=== PATIENT | female | born 1985 | race Two or more races ===

== ENCOUNTER 2017-03-28 13:20 | Emergency (ER) | payer OTHER, MEDICAID ==
[~2017-03-28] VITALS: Ht 160 cm; Wt 99.8 kg
[~2017-03-28 13:20] MED LIST: PANT40TA2 PO
[2017-03-28 13:35] VITALS: BP 148/101
== END 2017-03-28 14:28 | disposition home or self-care (01) ==
LOC: ER 13:20
DX: S39.012A Strain of muscle, fascia and tendon of lower back, initial encounter (principal); F17.210 Nicotine dependence, cigarettes, uncomplicated; E07.9 Disorder of thyroid, unspecified; V49.49XA Driver injured in collision with other motor vehicles in traffic accident, initial encounter; Y93.89 Activity, other specified; Y99.8 Other external cause status; Y92.481 Parking lot as the place of occurrence of the external cause

== ENCOUNTER 2018-05-11 03:24 | Emergency (ER) | payer MEDICAID, OTHER ==
[~2018-05-11] VITALS: Ht 160 cm; Wt 108.9 kg
[2018-05-11 03:57] VITALS: BP 146/105
[2018-05-11 04:30] LABS: Basophils # (auto) 0.1 uL; Basophils % (auto) 0.6 % (0.0-2.0); Eosinophils # (auto) 0.1 uL; Eosinophils % (auto) 0.9 % (0.0-7.0); Hematocrit 45.9 % (36.0-46.0); Hemoglobin 15.4 g/dL (12.2-16.2); Lymphocytes # (auto) 3.1 uL; Lymphocytes % (auto) 27.4 % (10.0-50.0); Mean Corpuscular Hemoglobin 29.6 pg (28.0-32.0); Mean Corpuscular Hgb Conc. 33.6 g/dL (32.0-36.0); Monocytes # (auto) 0.9 uL; Monocytes % (auto) 7.9 % (0.0-12.0); Neutrophils # (auto) 7.2 uL; Neutrophils % (auto) 63.2 % (37.0-80.0); Platelet Count (auto) 325 10^3/uL (140-450); Red Blood Cells 5.21 10^6/uL (4.0-5.20); Red Cell Distribution Width 14.4 % (11.8-14.3); White Blood Cell 11.4 10^3/uL (4.4-10.8)
[2018-05-11 05:03] LABS: Albumin 3.9 g/dL (3.4-5.0); BUN/Creatinine Ratio 13.2; Calcium 8.6 mg/dL (8.5-10.1); Potassium 3.6 mmol/L (3.5-5.1)
[2018-05-11 05:06] LABS: Bilirubin, Total 0.3 mg/dL (0.2-1.0); Total Protein 8.8 g/dL (6.4-8.2)
[2018-05-11 05:07] LABS: Urine Bacteria NONE SEEN /hpf (None Seen); Urine Blood Negative /uL (Negative); Urine Mucus FEW (None Seen); Urine Specific Gravity 1.036 (1.001-1.035); Urine WBC 2 /hpf (0 - 5)
== END 2018-05-11 06:54 | disposition left against medical advice (07) ==
LOC: ER 03:25
DX: N93.9 Abnormal uterine and vaginal bleeding, unspecified (principal); Z53.21 Procedure and treatment not carried out due to patient leaving prior to being seen by health care provider
CPT/HCPCS: 36415; 80053; 81001; 84702; 85025

== ENCOUNTER 2018-05-14 18:25 | Emergency (ER) | payer OTHER, MEDICAID ==
[~2018-05-14] VITALS: Ht 160 cm; Wt 108.9 kg
[2018-05-14 18:36] VITALS: BP 152/99
[2018-05-14] MEDS ORDERED: methylPREDNISolone SOD SUCC 125 MG/2 ML VL IM ONE (19:45)
== END 2018-05-14 20:03 | disposition home or self-care (01) ==
LOC: ER 18:25
DX: S80.862A Insect bite (nonvenomous), left lower leg, initial encounter (principal); S80.861A Insect bite (nonvenomous), right lower leg, initial encounter; E07.9 Disorder of thyroid, unspecified; F17.210 Nicotine dependence, cigarettes, uncomplicated; Z90.49 Acquired absence of other specified parts of digestive tract; W57.XXXA Bitten or stung by nonvenomous insect and other nonvenomous arthropods, initial encounter; Y93.89 Activity, other specified; Y99.8 Other external cause status; Y92.830 Public park as the place of occurrence of the external cause
CPT/HCPCS: 96372; 99283; J2930

== ENCOUNTER 2019-11-25 00:19 | Emergency (ER) | payer OTHER, MEDICAID ==
[~2019-11-25] VITALS: Ht 157.5 cm; Wt 108.9 kg
[2019-11-25 00:24] VITALS: BP 113/73
[2019-11-25] MEDS ORDERED: IBUPROFEN 600 MG TAB PO ONE (07:00)
[2019-11-25] MEDS ORDERED: METHOCARBAMOL 500 MG TAB PO ONE (07:00)
== END 2019-11-25 08:00 | disposition home or self-care (01) ==
LOC: EDBD 00:19 → ER 00:21
DX: M54.2 Cervicalgia (principal); R42 Dizziness and giddiness; M62.838 Other muscle spasm
CPT/HCPCS: 70450

== ENCOUNTER 2019-12-10 22:55 | Emergency (ER) | payer OTHER, MEDICAID ==
[~2019-12-10] VITALS: Ht 160 cm; Wt 102.5 kg
[2019-12-11] MEDS ORDERED: ACETAMINOPHEN 500 MG TAB PO ONE (00:30)
[2019-12-11 01:00] VITALS: BP 142/93
== END 2019-12-11 00:35 | disposition home or self-care (01) ==
LOC: ER 22:55
DX: S60.441A External constriction of left index finger, initial encounter (principal); G43.909 Migraine, unspecified, not intractable, without status migrainosus; J06.9 Acute upper respiratory infection, unspecified; W49.04XA Ring or other jewelry causing external constriction, initial encounter; Y93.89 Activity, other specified; Y92.89 Other specified places as the place of occurrence of the external cause; Y99.8 Other external cause status

== ENCOUNTER → 2020-01-02 | Emergency (ER) | payer OTHER, MEDICAID ==
[~2020-01-02] VITALS: Ht 160 cm; Wt 111.1 kg
[~2020-01-02] MED LIST changes: +IBUPROFEN 800 MG TAB PO ONE; +SODIUM CHLORIDE 0.9% 1,000 ML IV ONE
[2020-01-02 22:55] LABS: Basophils # (auto) 0 10 ^3/uL (0-0.2); Basophils % (auto) 0.3 % (0.0-2.0); Eosinophils # (auto) 0.1 10 ^3/uL (0-0.8); Eosinophils % (auto) 0.8 % (0.0-7.0); Hematocrit 40.9 % (36.0-46.0); Lymphocytes # (auto) 3.1 10 ^3/uL (0.4-5.4); Lymphocytes % (auto) 33.3 % (10.0-50.0); Mean Corpuscular Hemoglobin 30.6 pg (28.0-32.0); Mean Corpuscular Hgb Conc. 34.2 g/dL (32.0-36.0); Mean Corpuscular Volume 89.2 fL (80.0-100.0); Monocytes # (auto) 0.7 10 ^3/uL (0-1.3); Monocytes % (auto) 7.3 % (0.0-12.0); Neutrophils # (auto) 5.4 10 ^3/uL (1.6-8.6); Neutrophils % (auto) 58.3 % (37.0-80.0); Nucleated Red Blood Cells % 0.1 %; Platelet Count (auto) 276 10^3/uL (140-450); Red Blood Cells 4.59 10^6/uL (4.0-5.20); Red Cell Distribution Width 14.8 % (11.8-14.3); White Blood Cell 9.3 10^3/uL (4.4-10.8)
[2020-01-02 23:10] LABS: Urine Bacteria FEW /hpf (None Seen); Urine Blood Negative /uL (Negative); Urine Hyaline Cast FEW /lpf (0 - 2); Urine Mucus MANY (None Seen); Urine Specific Gravity 1.023 (1.001-1.035); Urine WBC 6 /hpf (0 - 5)
[2020-01-02 23:14] LABS: Albumin 3.8 g/dL (3.4-5.0); BUN/Creatinine Ratio 12.3; Magnesium 2.1 mg/dL (1.6-2.6); Potassium 3.5 mmol/L (3.5-5.1)
[2020-01-02 23:16] LABS: Bilirubin, Total 0.9 mg/dL (0.2-1.0); Salicylate < 1.7 mg/dL (2.8-20.0); Total Protein 7.9 g/dL (6.4-8.2)
[2020-01-02 23:17] LABS: Amphetamine Screen, Urine POSITIVE (NEGATIVE); Barbiturate Scree,Urine NEGATIVE (NEGATIVE); Benzodiazephine Screen, Urine POSITIVE (NEGATIVE); Cannabinoid Screen, Urine POSITIVE (NEGATIVE); Cocaine Screen, Urine POSITIVE (NEGATIVE); Opiate Scree,Urine NEGATIVE (NEGATIVE); Phencyclidine Screen, Urine NEGATIVE (NEGATIVE)
[2020-01-02 23:18] LABS: Acetaminophen < 2.0 ug/mL (10-30)
[2020-01-03 09:56] VITALS: BP 104/62
== END | disposition short-term general hospital (02) ==
LOC: ER 21:59
DX: T50.902A Poisoning by unspecified drugs, medicaments and biological substances, intentional self-harm, initial encounter (principal); F17.210 Nicotine dependence, cigarettes, uncomplicated; Y92.89 Other specified places as the place of occurrence of the external cause
CPT/HCPCS: 36415; 80053; 80307; 80320; 80329; 81001; 81025; 83735; 85025; 93005

== ENCOUNTER 2020-01-22 18:28 | Emergency (ER) | payer OTHER, MEDICAID ==
[~2020-01-22] VITALS: Ht 160 cm; Wt 91.6 kg
[~2020-01-22 18:28] MED LIST changes: -IBUPROFEN 800 MG TAB PO ONE; -SODIUM CHLORIDE 0.9% 1,000 ML IV ONE
[2020-01-22 19:36] VITALS: BP 136/98
[2020-01-22] MEDS ORDERED: TETANUS-DIPTH-ACEL PERTUSSIS 0.5ML SYR Tdap IM ONE (20:00)
[2020-01-22] MEDS ORDERED: cefTRIAXone SOD 1,000 MG VL IM ONE (20:00)
[2020-01-22] MEDS ORDERED: AZITHROMYCIN 250 MG TAB PO ONE (20:00)
[2020-01-22] MEDS ORDERED: KETOROLAC TROMETH 60MG/2ML VIAL IM ONE (20:00)
[2020-01-22] MEDS ORDERED: NEOMYCIN-BACITRACIN-POLYM 15GM TOP OINT TOP ONE (20:00)
== END 2020-01-22 21:53 | disposition home or self-care (01) ==
LOC: ER 18:28
DX: S90.822A Blister (nonthermal), left foot, initial encounter (principal); S40.812A Abrasion of left upper arm, initial encounter; S40.811A Abrasion of right upper arm, initial encounter; G43.909 Migraine, unspecified, not intractable, without status migrainosus; N39.0 Urinary tract infection, site not specified; L03.012 Cellulitis of left finger; F15.10 Other stimulant abuse, uncomplicated; F12.10 Cannabis abuse, uncomplicated; E03.9 Hypothyroidism, unspecified; F17.210 Nicotine dependence, cigarettes, uncomplicated; Z76.0 Encounter for issue of repeat prescription; Z79.899 Other long term (current) drug therapy; X58.XXXA Exposure to other specified factors, initial encounter; Y93.89 Activity, other specified; Y92.89 Other specified places as the place of occurrence of the external cause; Y99.8 Other external cause status
CPT/HCPCS: 82962; 90471; 90715; 96372; 99284; J0696; J1885

== ENCOUNTER 2020-02-08 00:37 | Emergency (ER) | payer OTHER, MEDICAID ==
[~2020-02-08] VITALS: Ht 160 cm; Wt 99.8 kg
[2020-02-08 01:45] LABS: Basophils # (auto) 0 10 ^3/uL (0-0.2); Basophils % (auto) 0.1 % (0.0-2.0); Eosinophils # (auto) 0.4 10 ^3/uL (0-0.8); Eosinophils % (auto) 4.9 % (0.0-7.0); Hematocrit 37.7 % (36.0-46.0); Hemoglobin 12.6 g/dL (12.2-16.2); Lymphocytes # (auto) 2.8 10 ^3/uL (0.4-5.4); Lymphocytes % (auto) 31.1 % (10.0-50.0); Mean Corpuscular Hemoglobin 29.7 pg (28.0-32.0); Mean Corpuscular Hgb Conc. 33.4 g/dL (32.0-36.0); Mean Corpuscular Volume 88.8 fL (80.0-100.0); Monocytes # (auto) 0.8 10 ^3/uL (0-1.3); Monocytes % (auto) 8.3 % (0.0-12.0); Neutrophils % (auto) 55.6 % (37.0-80.0); Nucleated Red Blood Cells % 0.1 %; Platelet Count (auto) 267 10^3/uL (140-450); Red Blood Cells 4.25 10^6/uL (4.0-5.20); Red Cell Distribution Width 14.4 % (11.8-14.3); White Blood Cell 9.1 10^3/uL (4.4-10.8)
[2020-02-08 02:03] LABS: Alanine Aminotransferase 38 U/L (13-56); Albumin 3.4 g/dL (3.4-5.0); Anion Gap 6 (5-15); Aspartate Aminotransferase 35 U/L (15-37); BUN/Creatinine Ratio 8.8; Blood Alcohol < 3.0 mg/dL (0-5); Blood Urea Nitrogen 6 mg/dL (7-18); Calcium 8.2 mg/dL (8.5-10.1); Carbon Dioxide 26 mmol/L (21-32); Chloride 107 mmol/L (98-107); GFR African American 126 mL/min; GFR Non-African American 104 mL/min; Glucose 104 mg/dL (74-106); Potassium 3.3 mmol/L (3.5-5.1); Salicylate < 1.7 mg/dL (2.8-20.0); Sodium 139 mmol/L (136-145)
[2020-02-08 02:07] LABS: Alkaline Phosphatase 84 U/L (45-117); Bilirubin, Total 0.4 mg/dL (0.2-1.0); Total Protein 7.4 g/dL (6.4-8.2)
[2020-02-08 02:11] LABS: Acetaminophen < 2.0 ug/mL (10-30)
[2020-02-08 04:12] LABS: Urine Bacteria NONE SEEN /hpf (None Seen); Urine Blood Negative /uL (Negative); Urine Hyaline Cast FEW /lpf (0 - 2); Urine Mucus FEW (None Seen); Urine WBC 3 /hpf (0 - 5)
[2020-02-08] MEDS ORDERED: SODIUM CHLORIDE 0.9% 2,000 ML IV ONE (04:15)
[2020-02-08 04:27] LABS: Alcohol, Urine < 3.0 mg/dL (0-5); Amphetamine Screen, Urine POSITIVE (NEGATIVE); Barbiturate Scree,Urine NEGATIVE (NEGATIVE); Benzodiazephine Screen, Urine NEGATIVE (NEGATIVE); Cannabinoid Screen, Urine NEGATIVE (NEGATIVE); Cocaine Screen, Urine POSITIVE (NEGATIVE); Opiate Scree,Urine NEGATIVE (NEGATIVE); Phencyclidine Screen, Urine NEGATIVE (NEGATIVE)
[2020-02-08] MEDS ORDERED: SODIUM CHLORIDE 0.9% 1,000 ML IV ONE (04:45)
[2020-02-08 10:09] LABS: Basophils # (auto) 0 10 ^3/uL (0-0.2); Basophils % (auto) 0.2 % (0.0-2.0); Eosinophils # (auto) 0.3 10 ^3/uL (0-0.8); Eosinophils % (auto) 4.5 % (0.0-7.0); Hematocrit 37.6 % (36.0-46.0); Hemoglobin 12.4 g/dL (12.2-16.2); Lymphocytes # (auto) 1.3 10 ^3/uL (0.4-5.4); Lymphocytes % (auto) 22.7 % (10.0-50.0); Mean Corpuscular Hemoglobin 29.5 pg (28.0-32.0); Mean Corpuscular Volume 89.4 fL (80.0-100.0); Monocytes # (auto) 0.5 10 ^3/uL (0-1.3); Monocytes % (auto) 8.1 % (0.0-12.0); Neutrophils # (auto) 3.8 10 ^3/uL (1.6-8.6); Neutrophils % (auto) 64.5 % (37.0-80.0); Platelet Count (auto) 241 10^3/uL (140-450); Red Blood Cells 4.21 10^6/uL (4.0-5.20); Red Cell Distribution Width 14.2 % (11.8-14.3); White Blood Cell 5.9 10^3/uL (4.4-10.8)
[2020-02-09] MEDS ORDERED: POTASSIUM EFFERVESENT TAB 25 MEQ PO ONE (11:00)
[2020-02-10 14:51] VITALS: BP 120/83
== END 2020-02-10 14:21 | disposition short-term general hospital (02) ==
LOC: ER 00:37
DX: T42.4X1A Poisoning by benzodiazepines, accidental (unintentional), initial encounter (principal); F12.10 Cannabis abuse, uncomplicated; F15.10 Other stimulant abuse, uncomplicated; F17.210 Nicotine dependence, cigarettes, uncomplicated; Z90.49 Acquired absence of other specified parts of digestive tract; Y92.89 Other specified places as the place of occurrence of the external cause
CPT/HCPCS: 36415; 70450; 80053; 80307; 80320; 80329; 81001; 83735; 84702; 85025; 93005; 99285; J7030

== ENCOUNTER 2020-10-31 17:32 | Emergency (ER) | payer OTHER, MEDICAID ==
[~2020-10-31] VITALS: Ht 160 cm; Wt 81.6 kg
[2020-10-31 19:28] LABS: Urine Bacteria NONE SEEN /hpf (None Seen); Urine Blood 2+ /uL (Negative); Urine Mucus MODERATE (None Seen); Urine Specific Gravity 1.044 (1.001-1.035); Urine WBC 6 /hpf (0 - 5)
[2020-10-31] MEDS ORDERED: ROCURONIUM 10MG/ML 10ML VIAL IV ONE (19:44)
[2020-10-31 19:53] LABS: Amphetamine Screen, Urine POSITIVE (NEGATIVE); Barbiturate Scree,Urine NEGATIVE (NEGATIVE); Benzodiazephine Screen, Urine NEGATIVE (NEGATIVE); Cannabinoid Screen, Urine NEGATIVE (NEGATIVE); Cocaine Screen, Urine NEGATIVE (NEGATIVE); Opiate Scree,Urine NEGATIVE (NEGATIVE); Phencyclidine Screen, Urine NEGATIVE (NEGATIVE)
[2020-11-01] MEDS ORDERED: HALOPERIDOL LACTATE 5 MG/ML INJ VIAL IM ONE (04:15)
[2020-11-01] MEDS ORDERED: LORazepam 2MG/ML-1ML VIAL IM ONE (04:15)
[2020-11-01 15:12] VITALS: BP 114/89
== END 2020-11-01 15:18 ==
LOC: ER 17:32 → EDBD 17:32 → ER 11-01 15:18
DX: F23 Brief psychotic disorder (principal); F17.210 Nicotine dependence, cigarettes, uncomplicated; Z90.49 Acquired absence of other specified parts of digestive tract; Z20.822 Contact with and (suspected) exposure to COVID-19
CPT/HCPCS: 36415; 80307; 81001; 81025; 87426; 96372; 99285; C9803; J1630; J2060; U0003

== ENCOUNTER 2021-01-25 17:42 | Emergency (ER) | payer OTHER, MEDICAID ==
[~2021-01-25] VITALS: Ht 167.6 cm; Wt 117.9 kg
[2021-01-25] MEDS ORDERED: diphenhdrAMINE HCL 50 MG/1 ML VL IM ONE (18:30)
[2021-01-25] MEDS ORDERED: HALOPERIDOL LACTATE 5 MG/ML INJ VIAL IM ONE (18:30)
[2021-01-25] MEDS ORDERED: LORazepam 2MG/ML-1ML VIAL IM ONE (18:30)
[2021-01-25] MEDS ORDERED: SODIUM CHLORIDE 0.9% 1,000 ML IV ONE ×2 (18:45→20:15)
[2021-01-25] MEDS ORDERED: THIAMINE INJ 100 MG in SODIUM CHLORIDE 0.9% 1,000 ML IV ONE (18:45)
[2021-01-25 19:26] LABS: Basophils # (auto) 0 10 ^3/uL (0-0.2); Basophils % (auto) 0.2 % (0.0-2.0); Eosinophils # (auto) 0 10 ^3/uL (0-0.8); Hematocrit 45.2 % (36.0-46.0); Hemoglobin 14.9 g/dL (12.2-16.2); Lymphocytes # (auto) 1.7 10 ^3/uL (0.4-5.4); Mean Corpuscular Hemoglobin 27.2 pg (28.0-32.0); Mean Corpuscular Hgb Conc. 32.9 g/dL (32.0-36.0); Mean Corpuscular Volume 82.8 fL (80.0-100.0); Monocytes # (auto) 1.6 10 ^3/uL (0-1.3); Monocytes % (auto) 9.7 % (0.0-12.0); Neutrophils # (auto) 13.6 10 ^3/uL (1.6-8.6); Neutrophils % (auto) 80.1 % (37.0-80.0); Nucleated Red Blood Cells % 0.3 %; Red Blood Cells 5.46 10^6/uL (4.0-5.20); Red Cell Distribution Width 15.9 % (11.8-14.3)
[2021-01-25 19:39] LABS: Albumin 4.9 g/dL (3.4-5.0); BUN/Creatinine Ratio 9.5; Potassium 3.8 mmol/L (3.5-5.1)
[2021-01-25 19:40] LABS: Blood Alcohol < 3.0 mg/dL (0-5); Magnesium 2.3 mg/dL (1.6-2.6)
[2021-01-25 19:42] LABS: Bilirubin, Total 0.7 mg/dL (0.2-1.0); Total Protein 10.3 g/dL (6.4-8.2)
[2021-01-25] MEDS ORDERED: ALBUTEROL SULF 2.5 MG/0.5ML(0.5%) NEB SOLN ONE (19:42)
[2021-01-25 19:50] LABS: Salicylate < 1.7 mg/dL (2.8-20.0)
[2021-01-25 19:52] LABS: Acetaminophen < 2.0 ug/mL (10-30)
[2021-01-25] MEDS ORDERED: ACETAMINOPHEN 325 MG TAB PO ONE (20:00)
[2021-01-25] MEDS ORDERED: THIAMINE 100mg/ml INJ (200mg/2ml VIAL) IV ONE (20:15)
[2021-01-25 23:34] LABS: Urine Bacteria MANY /hpf (None Seen); Urine Blood 2+ /uL (Negative); Urine Hyaline Cast MANY /lpf (0 - 2); Urine Mucus FEW (None Seen); Urine Specific Gravity 1.026 (1.001-1.035); Urine WBC 114 /hpf (0 - 5)
[2021-01-25 23:40] LABS: Amphetamine Screen, Urine POSITIVE (NEGATIVE); Barbiturate Scree,Urine NEGATIVE (NEGATIVE); Benzodiazephine Screen, Urine NEGATIVE (NEGATIVE); Cannabinoid Screen, Urine POSITIVE (NEGATIVE); Cocaine Screen, Urine NEGATIVE (NEGATIVE); Opiate Scree,Urine NEGATIVE (NEGATIVE); Phencyclidine Screen, Urine NEGATIVE (NEGATIVE)
[2021-01-26] MEDS ORDERED: cefTRIAXone 1GM/50ML D5W 50 ML IV ONE (01:15)
[2021-01-26 10:09] VITALS: BP 119/80
== END 2021-01-26 11:07 | disposition home or self-care (01) ==
LOC: EDBD 17:42 → ER 17:46
DX: R45.851 Suicidal ideations (principal); R07.9 Chest pain, unspecified; F41.9 Anxiety disorder, unspecified; F32.9 Major depressive disorder, single episode, unspecified; F20.9 Schizophrenia, unspecified; F15.10 Other stimulant abuse, uncomplicated; R51.9 Headache, unspecified; F17.210 Nicotine dependence, cigarettes, uncomplicated; F12.10 Cannabis abuse, uncomplicated; Z32.02 Encounter for pregnancy test, result negative; Z20.822 Contact with and (suspected) exposure to COVID-19
CPT/HCPCS: 36415; 70450; 71045; 80053; 80307; 80320; 80329; 81001; 81025; 82728; 83605; 83735; 83880; 84702; 85025; 87040; 87086; 87426; 93005; 96361; 96365; 96367; 96372; 99285; J0696; J1200; J1630; J2060; J3411; J7030

== ENCOUNTER 2021-02-07 12:53 | Emergency (ER) | payer OTHER, MEDICAID ==
[~2021-02-07] VITALS: Ht 160 cm; Wt 108.9 kg
[2021-02-07 12:55] VITALS: BP 144/98
[2021-02-07] MEDS ORDERED: SERT-160 PO (13:55)
[2021-02-07] MEDS ORDERED: RISP2TAB62 PO (13:55)
[2021-02-07] MEDS ORDERED: QUET100T47 PO (13:55)
[2021-02-07] MEDS ORDERED: NITR100C6 PO (13:55)
[2021-02-07] MEDS ORDERED: LEVO125T7 PO (13:55)
[2021-02-07 15:11] LABS: Urine Bacteria NONE SEEN /hpf (None Seen); Urine Blood Negative /uL (Negative); Urine Mucus MANY (None Seen); Urine WBC 7 /hpf (0 - 5)
[2021-02-07 15:26] LABS: Amphetamine Screen, Urine POSITIVE (NEGATIVE); Barbiturate Scree,Urine NEGATIVE (NEGATIVE); Benzodiazephine Screen, Urine POSITIVE (NEGATIVE); Cannabinoid Screen, Urine NEGATIVE (NEGATIVE); Cocaine Screen, Urine NEGATIVE (NEGATIVE); Opiate Scree,Urine NEGATIVE (NEGATIVE); Phencyclidine Screen, Urine NEGATIVE (NEGATIVE)
== END 2021-02-07 15:33 | disposition left against medical advice (07) ==
LOC: ER 12:53
DX: F41.1 Generalized anxiety disorder (principal); F15.10 Other stimulant abuse, uncomplicated; F17.210 Nicotine dependence, cigarettes, uncomplicated; F12.10 Cannabis abuse, uncomplicated; Z53.29 Procedure and treatment not carried out because of patient's decision for other reasons
CPT/HCPCS: 80307; 81001; 81025

== ENCOUNTER 2021-02-07 17:17 | Emergency (ER) | payer OTHER, MEDICAID ==
[~2021-02-07] VITALS: Ht 160 cm; Wt 99.8 kg
[~2021-02-07 17:17] MED LIST changes: +LEVO125T7 PO; +NITR100C6 PO; +QUET100T46 PO; +RISP2TAB62 PO; +SERT-160 PO
[2021-02-07] MEDS ORDERED: QUEtiapine FUMARATE 100 MG TAB PO ONE (18:15)
[2021-02-07] MEDS ORDERED: LEVOTHYROXINE SODIUM 112 MCG TAB PO ONE (18:15)
[2021-02-07] MEDS ORDERED: SERTRALINE HCL 50 MG TAB PO ONE (18:15)
[2021-02-07] MEDS ORDERED: LORazepam 2MG/ML-1ML VIAL IV ONE (18:15)
[2021-02-07 19:55] VITALS: BP 155/104
== END 2021-02-07 20:03 | disposition home or self-care (01) ==
LOC: ER 17:18
DX: F15.10 Other stimulant abuse, uncomplicated (principal); F41.9 Anxiety disorder, unspecified; F32.9 Major depressive disorder, single episode, unspecified; F20.9 Schizophrenia, unspecified; E03.9 Hypothyroidism, unspecified; F17.210 Nicotine dependence, cigarettes, uncomplicated; Z91.19 Patient's noncompliance with other medical treatment and regimen; Z79.899 Other long term (current) drug therapy; Z90.89 Acquired absence of other organs
CPT/HCPCS: 96374; 99284; J2060

== ENCOUNTER 2021-05-31 19:54 | Emergency (ER) | payer OTHER, MEDICAID ==
[~2021-05-31] VITALS: Ht 160 cm; Wt 99.8 kg
[2021-05-31 20:52] LABS: Basophils # (auto) 0.1 10 ^3/uL (0-0.2); Basophils % (auto) 0.6 % (0.0-2.0); Eosinophils # (auto) 0.1 10 ^3/uL (0-0.8); Eosinophils % (auto) 0.4 % (0.0-7.0); Hematocrit 41.6 % (36.0-46.0); Hemoglobin 13.7 g/dL (12.2-16.2); Lymphocytes # (auto) 2.2 10 ^3/uL (0.4-5.4); Lymphocytes % (auto) 10.4 % (10.0-50.0); Mean Corpuscular Hemoglobin 26.3 pg (28.0-32.0); Mean Corpuscular Volume 79.7 fL (80.0-100.0); Monocytes # (auto) 2.2 10 ^3/uL (0-1.3); Monocytes % (auto) 10.2 % (0.0-12.0); Neutrophils # (auto) 16.8 10 ^3/uL (1.6-8.6); Neutrophils % (auto) 78.4 % (37.0-80.0); Nucleated Red Blood Cells % 0.1 %; Red Blood Cells 5.22 10^6/uL (4.0-5.20); Red Cell Distribution Width 16.7 % (11.8-14.3); White Blood Cell 21.4 10^3/uL (4.4-10.8)
[2021-05-31 21:41] LABS: Alanine Aminotransferase 75 U/L (13-56); Albumin 4.2 g/dL (3.4-5.0); Anion Gap 13 (5-15); Aspartate Aminotransferase 99 U/L (15-37); BUN/Creatinine Ratio 23.2; Blood Urea Nitrogen 32 mg/dL (7-18); Calcium 8.5 mg/dL (8.5-10.1); Carbon Dioxide 21 mmol/L (21-32); Chloride 99 mmol/L (98-107); GFR African American 55 mL/min; GFR Non-African American 46 mL/min; Glucose 125 mg/dL (74-106); Potassium 3.3 mmol/L (3.5-5.1); Sodium 133 mmol/L (136-145)
[2021-05-31 21:44] LABS: Alkaline Phosphatase 129 U/L (45-117); Bilirubin, Total 1.4 mg/dL (0.2-1.0); Total Protein 10.3 g/dL (6.4-8.2)
[2021-06-01 02:36] LABS: Amphetamine Screen, Urine POSITIVE (NEGATIVE); Barbiturate Scree,Urine NEGATIVE (NEGATIVE); Benzodiazephine Screen, Urine NEGATIVE (NEGATIVE); Cocaine Screen, Urine POSITIVE (NEGATIVE); Opiate Scree,Urine NEGATIVE (NEGATIVE); Phencyclidine Screen, Urine NEGATIVE (NEGATIVE)
[2021-06-01 02:41] LABS: Urine Bacteria FEW /hpf (None Seen); Urine Blood 1+ /uL (Negative); Urine Hyaline Cast MOD /lpf (0 - 2); Urine Mucus FEW (None Seen); Urine Specific Gravity 1.029 (1.001-1.035); Urine WBC 2 /hpf (0 - 5)
[2021-06-01 02:44] LABS: Cannabinoid Screen, Urine POSITIVE (NEGATIVE)
[2021-06-01] MEDS ORDERED: metroNIDAZOLE 500MG/100ML 100 ML IV ONE (11:00)
[2021-06-01] MEDS ORDERED: metroNIDAZOLE 500 MG TAB PO ONE (11:30)
[2021-06-01 13:07] VITALS: BP 129/78
== END 2021-06-01 14:00 | disposition home or self-care (01) ==
LOC: ER 19:57
DX: R06.00 Dyspnea, unspecified (principal); F15.10 Other stimulant abuse, uncomplicated; F12.10 Cannabis abuse, uncomplicated; F14.10 Cocaine abuse, uncomplicated; F17.210 Nicotine dependence, cigarettes, uncomplicated; Z91.14 Patient's other noncompliance with medication regimen; Z90.49 Acquired absence of other specified parts of digestive tract; Z79.899 Other long term (current) drug therapy; Z20.822 Contact with and (suspected) exposure to COVID-19
CPT/HCPCS: 36415; 71045; 74176; 80053; 80307; 81001; 85025; 87426; 99285; J3490

== ENCOUNTER 2021-08-15 22:59 | Emergency (ER) | payer OTHER, MEDICAID ==
[~2021-08-15] VITALS: Ht 160 cm; Wt 99.8 kg
[~2021-08-15 22:59] MED LIST changes: -QUET100T46 PO; +QUET100T47 PO
[2021-08-16 06:53] VITALS: BP 165/94
== END 2021-08-16 06:10 | disposition home or self-care (01) ==
LOC: ER 22:59
DX: R51.9 Headache, unspecified (principal); R10.9 Unspecified abdominal pain; F17.210 Nicotine dependence, cigarettes, uncomplicated; F12.10 Cannabis abuse, uncomplicated; F15.10 Other stimulant abuse, uncomplicated; F14.10 Cocaine abuse, uncomplicated; Z20.822 Contact with and (suspected) exposure to COVID-19
CPT/HCPCS: 36415; 87426

== ENCOUNTER 2024-09-04 20:33 | Inpatient (IN) | payer MEDICARE, MEDICAID ==
[~2024-09-04] VITALS: Ht 160 cm; Wt 113.0 kg
--- NOTE | 2024-09-04 20:45 | ED.PDOC ---
History of Present Illness HPI Comments 38-year-old female presents with a chief complaint of chest pain and hyperglycemia. Patient states that her pain is localized to her left chest wall, non-radiating, describes as stabbing and occurred while she was at rest. Patient mentions that she was sitting down when onset began and she got dizzy. Patient mentions that she took her blood sugar afterwards and it read 546. With EMS, blood sugar was 564. Patient mentions that she was just recently released from [facility] and was recently diagnosed with Diabetes. Patient has been taking Metformin twice a day since, but is still hyperglycemic. Patient denies any SOB at this time. Patient is on clindamycin for boils from [place]. Time Seen by MD: 20:40 Primary Care Provider: NONE Reviewed Notes: Medications, Allergies Allergies: Coded Allergies: NO KNOWN ALLERGIES (Unverified , 09/02/14) Home Meds Active Scripts Pantoprazole Sodium Sesquihydr (Protonix) 40 Mg Tab, 40 MG PO DAILY, #20 TAB 1 daily Prov:GAVIN APONTE 06/17/15 Reported Medications Risperidone (Risperidone) 2 Mg Tab, 1 TAB PO 02/07/21 Nitrofurantoin Monohyd Macro (Nitrofurantoin Monohydrat) 100 Mg Cap, 1 CAP PO BID 02/07/21 Levothyroxine Sodium (Levothyroxine Sodium) 125 Mcg Tab, 1 TAB PO DAILYPRN 02/07/21 Quetiapine Fumerate (QUETIAPINE FUMARATE) 100 Mg Tab, TAB PO 02/07/21 Sertraline Hcl (Sertraline Hcl) 100 Mg Tab, 1 TAB PO DAILYPRN 02/07/21 Information Source: Patient, Emergency Med Personnel Mode of Arrival: EMS Severity: Moderate Timing: Days Duration: Since onset Prehospital treatment: Accucheck, IVF Past Medical History PAST MEDICAL HISTORY: Anxiety, Depression, DM, Gallstones, Schizophrenia, Thyroid Surgical History: Appendectomy MACHINE MAINTENANCE REPAIRER History: No Pertinent MACHINE MAINTENANCE REPAIRER History Family History Family History: Reviewed,noncontributory to illness Social History Smoker: Cigarettes, Less Than 1 Pack/Day Alcohol: Denies ETOH Use Drugs: Cocaine, Marijuana, Methamphetamine Lives In: Home Constitutional: denies: chills, diaphoresis, fatigue, fever, malaise, sweats, weakness, others EENTM: denies: blurred vision, double vision, ear bleeding, ear discharge, ear drainage, ear pain, ear ringing, eye pain, eye redness, hearing loss, mouth pain, mouth swelling, nasal discharge, nose bleeding, nose congestion, nose pain, photophobia, tearing, throat pain, throat swelling, voice changes, others Respiratory: denies: cough, hemoptysis, orthopnea, SOB at rest, shortness of breath, SOB with excertion, stridor, wheezing, others Cardiovascular: reports: chest pain; denies: dizzy spells, diaphoresis, Dyspnea on exertion, edema, irregular heart beat, left arm pain, lightheadedness, palpitations, PND, syncope, others Gastrointestinal: denies: abdomen distended, abdominal pain, blood streaked bowels, constipated, diarrhea, dysphagia, difficulty swallowing, hematemesis, melena, nausea, poor appetite, poor fluid intake, rectal bleeding, rectal pain, vomiting, others Genitourinary: denies: abnormal vagina bleeding, burning, dyspareunia, dysuria, flank pain, frequency, hematuria, incontinence, pain, , vagina discharge, urgency, others Neurological: denies: dizziness, fainting, headache, left sided numbness, left sided weakness, numbness, paresthesia, pre-existing deficit, right sided numbness, right sided weakness, seizure, speech problems, tingling, tremors, weakness, others Musculoskeletal: denies: back pain, gout, joint pain, joint swelling, muscle pain, muscle stiffness, neck pain, others Integumetry: denies: bruises, change in color, change in hair/nails, dryness, laceration, lesions, lumps, rash, wounds, others Allergic/Immunocompromised: denies: Difficulty Healing, Frequent Infections, Hives, Itching, others Hematologic/Lymphatic: denies: anemia, blood clots, easy bleeding, easy bruising, swollen glands, others Endocrine: reports: others (HYPERGLYCEMIA); denies: excessive hunger, excessive sweating, excessive thirst, excessive urination, flushing, intolerance to cold, intolerance to heat, unexplained weight gain, unexplained weight loss Psychiatric: denies: anxiety, bipolar disorder, depression, hopeless, panic disorder, schizophrenia, sleepless, suicidal, others All Other Systems: Reviewed and Negative Physical Exam General Appearance: No Apparent Distress, Normal HEENT: Normal ENT Inspection, Pharynx Normal, TMs Normal Neck: Full Range of Motion, Non-Tender, Normal, Normal Inspection Respiratory: Chest Non-Tender, Lungs Clear, No Accessory Muscle Use, No Respiratory Distress, Normal Breath Sounds Cardiovascular: No Edema, No JVD, No Murmur, No Gallop, Normal Peripheral Pulses, Regular Rate/Rhythm Breast Exam: Deferred Gastrointestinal: No Organomegaly, Non Tender, No Pulsatile Mass, Normal Bowel Sounds, Soft Genitalia: Deferred Pelvic: Deferred Rectal: Deferred Extremities: No calf tenderness, Normal capillary refill, Normal inspection, Normal range of motion, Non-tender, No pedal edema Musculoskeletal : Apperance: Normal Neurologic: Alert, explosive ordnance manager II-XII nml as Tested, No Motor Deficits, Normal Affect, Normal Mood, No Sensory Deficits Cerebellar Function: Normal Reflexes: Normal Skin: Dry, Normal Color, Warm Lymphatic: No Adenopathy Was a procedure done? Was a procedure done?: No Differential Dx Considerations may include: ACS, CHF with the patient, musculoskeletal strain, electrolyte abnormalities, and pneumonia, infectious etiology X-Ray, Labs, Meds, VS Vital Signs Date Time Temp Pulse Resp B/P (MAP) Pulse Ox O2 Delivery O2 Flow Rate FiO2 09/04/24 21:45 92 09/04/24 20:44 87 09/04/24 20:37 97.7 88 16 120/38 (65) 96 Lab Test 09/04/24 21:48 09/04/24 20:59 09/04/24 20:48 Range/Units Troponin I High Sensitivity 3 L < 3 L </=34 ng/L White Blood Count 8.4 4.4-10.8 10^3/uL Red Blood Count 4.93 4.0-5.20 10^6/uL Hemoglobin 14.7 12.2-16.2 g/dL Hematocrit 43.9 36.0-46.0 % Mean Corpuscular Volume 89.1 80.0-100.0 fL Mean Corpuscular Hemoglobin 29.8 28.0-32.0 pg Mean Corpuscular Hemoglobin Concent 33.5 32.0-36.0 g/dL Red Cell Distribution Width 14.5 H 11.8-14.3 % Platelet Count 238 140-450 10^3/uL Mean Platelet Volume 8.5 6.9-10.8 fL Neutrophils (%) (Auto) 53.3 37.0-80.0 % Lymphocytes (%) (Auto) 36.7 10.0-50.0 % Monocytes (%) (Auto) 7.4 0.0-12.0 % Eosinophils (%) (Auto) 2.1 0.0-7.0 % Basophils (%) (Auto) 0.5 0.0-2.0 % Neutrophils # (Auto) 4.4 1.6-8.6 10 ^3/uL Lymphocytes # (Auto) 3.1 0.4-5.4 10 ^3/uL Monocytes # (Auto) 0.6 0-1.3 10 ^3/uL Eosinophils # (Auto) 0.2 0-0.8 10 ^3/uL Basophils # (Auto) 0 0-0.2 10 ^3/uL Nucleated Red Blood Cells 0.0 % Sodium Level 132 L 136-145 mmol/L Potassium Level 3.8 3.5-5.1 mmol/L Chloride Level 100 98-107 mmol/L Carbon Dioxide Level 24 20-31 mmol/L Anion Gap 8 5-15 Blood Urea Nitrogen 6 L 9-23 mg/dL Creatinine 0.85 0.550-1.02 mg/dL Glomerular Filtration Rate Calc 89 >90 mL/min BUN/Creatinine Ratio 7.1 L 10.0-20.0 Serum Glucose 495 *H 74-106 mg/dL Calcium Level 9.9 8.7-10.4 mg/dL B-Type Natriuretic Peptide 13.83 0-100 pg/mL POC Glucose 484 *H 70-106 mg/dl Time of 1ST Reevaluation: 21:10 Reevaluation 1ST: Unchanged Patient Education/Counseling: Diagnosis, Treatment, Prognosis Family Education/Counseling: No Family Present Departure 1 Departure Time of Disposition: 23:56 (Patient with uncontrolled diabetes. His diabetes is new onset. She was recently diagnosed at an outside hospital the last several weeks was started on metformin and discharged without any further workup. Patient's sugars have been uncontrolled signs.Patient presented with chest pain that was concerning for possible STEMI, ACS, PE, Pneumonia, Muscle Strain, COPD, Dissection. Data: 1. I ordered and reviewed the result of at least 3 labs including a CBC, BMP, and Troponin. 2. I independently interpreted the following tests: EKG which shows sinus tachycardia and Chest X-ray which shows pulmonary vascular congestion.Risk:This patient has a high risk of morbidity due to further diagnostic testing or treatment and may suffer from an acute cardiac or respiratory disorder. Workup reveals uncontrolled diabetes and concern for CHF and patient should be admitted for further workup and possible expert consultation. ) Impression: Primary Impression: Uncontrolled diabetes mellitus Qualified Codes: E11.65 - Type 2 diabetes mellitus with hyperglycemia Additional Impressions: Acute chest pain Pulmonary vascular congestion Disposition: ADMITTED INPATIENT Admit to: Med Surg Condition: Serious Critical Care Note Critical Care Time?: Yes Critical care comment: Acute chest pain Authorized and Performed by: Kimberley Lamb MD Total critical care time: Approximately 32 minutes Due to a high probability of clinically significant, life threatening deterioration, the patient required my highest level of preparedness to intervene emergently and I personally spent this critical care time directly and personally managing the patient. This critical care time included obtaining a history; examining the patient; pulse oximetry; ordering and review of studies; arranging urgent treatment with development of a management plan; evaluation of patient's response to treatment; frequent reassessment; and, discussions with other providers. This critical care time was performed to assess and manage the high probability of imminent, life-threatening deterioration that could result in multi-organ failure. It was exclusive of separately billable procedures and treating other patients and teaching time. Please see my other sections and the rest of the note for further information on patient assessment and treatment. Stability Stability form required: No I personally scribed for KIMBERLEY LAMB MD ([email or web address]) on 09/04/24 at 20:45. Electronically submitted by Aidan Garrett ([email or web address]). KIMBERLEY LAMB MD Sep 04, 2024 20:45
[2024-09-04 21:21] LABS: Basophils # (auto) 0 10 ^3/uL (0-0.2); Basophils % (auto) 0.5 % (0.0-2.0); Eosinophils # (auto) 0.2 10 ^3/uL (0-0.8); Eosinophils % (auto) 2.1 % (0.0-7.0); Hematocrit 43.9 % (36.0-46.0); Hemoglobin 14.7 g/dL (12.2-16.2); Lymphocytes # (auto) 3.1 10 ^3/uL (0.4-5.4); Lymphocytes % (auto) 36.7 % (10.0-50.0); Mean Corpuscular Hemoglobin 29.8 pg (28.0-32.0); Mean Corpuscular Hgb Conc. 33.5 g/dL (32.0-36.0); Mean Corpuscular Volume 89.1 fL (80.0-100.0); Monocytes # (auto) 0.6 10 ^3/uL (0-1.3); Monocytes % (auto) 7.4 % (0.0-12.0); Neutrophils # (auto) 4.4 10 ^3/uL (1.6-8.6); Neutrophils % (auto) 53.3 % (37.0-80.0); Platelet Count (auto) 238 10^3/uL (140-450); Red Blood Cells 4.93 10^6/uL (4.0-5.20); Red Cell Distribution Width 14.5 % (11.8-14.3); White Blood Cell 8.4 10^3/uL (4.4-10.8)
--- NOTE | 2024-09-04 21:28 | DVH ---
CHEST RADIOGRAPH Indication: SOB Technique: Single frontal view of the chest was obtained Comparison: CHEST XRAY 1 VIEW on DOS: 06/01/21, CXR1 on DOS: 06/01/21, CHEST PORTABLE on DOS: 01/25/21 FINDINGS: Lines and Tubes: None Lungs: No focal consolidation. Mild interstitial prominence. Pleura: No effusion. No pneumothorax. Cardiomediastinal contours: Mild cardiomegaly Bones: No acute osseous abnormality. IMPRESSION: Mild pulmonary vascular congestion.
[2024-09-04 21:31] LABS: Anion Gap 8 (5-15); Carbon Dioxide 24 mmol/L (20-31); Chloride 100 mmol/L (98-107); Potassium 3.8 mmol/L (3.5-5.1)
[2024-09-04 21:32] LABS: Calcium 9.9 mg/dL (8.7-10.4)
[2024-09-04 21:34] LABS: Sodium 132 mmol/L (136-145)
[2024-09-04 21:37] LABS: BUN/Creatinine Ratio 7.1 (10.0-20.0)
[2024-09-04 21:56] LABS: Blood Urea Nitrogen 6 mg/dL (9-23); Glucose 495 mg/dL (74-106)
[2024-09-05] MEDS ORDERED: DEXTROSE (50%) 50ML SYRG IV PRN (00:30)
[2024-09-05] MEDS ORDERED: MORPHINE SULFATE INJ 2 MG/ml SYRG IV PRN ×2 (00:30→03:15)
[2024-09-05] MEDS ORDERED: NITROGLYCERIN 0.4 MG SL TAB SL PRN ×2 (00:30→03:15)
[2024-09-05 00:41] LABS: Anion Gap 13 (5-15); BUN/Creatinine Ratio 6.2 (10.0-20.0); Calcium 9.8 mg/dL (8.7-10.4); Carbon Dioxide 21 mmol/L (20-31); Chloride 100 mmol/L (98-107); Magnesium 1.6 mg/dL (1.6-2.6); Potassium 4.5 mmol/L (3.5-5.1)
[2024-09-05 00:42] LABS: Albumin 4.3 g/dL (3.2-4.8); Bilirubin, Total 0.6 mg/dL (0.2-1.0); Total Protein 7.6 g/dL (5.7-8.2)
[2024-09-05 01:02] LABS: Alanine Aminotransferase 139 U/L (7-40); Alkaline Phosphatase 138 U/L (46-116); Aspartate Aminotransferase 144 U/L (13-40); Beta HCG, Quantitative < 0.0 mIU/mL (1.5-4.2); Blood Urea Nitrogen 7 mg/dL (9-23); Sodium 134 mmol/L (136-145)
[2024-09-05 01:13] LABS: Glucose 536 mg/dL (74-106)
[2024-09-05 01:31] LABS: Blood Alcohol < 3.0 mg/dL (<10)
--- NOTE | 2024-09-05 01:41 | DVHHPRES ---
History of Present Illness Resident Creating Document: MAAME SELLERS RESIDENT History of Present Illness Patient is 38 years old female with past medical history of diabetes mellitus 2, hypothyroidism, bipolar disorder, schizophrenia, anxiety, manic depression was brought to the ER due to elevated blood sugar level. As per patient she was feeling dizzy at home and she checked her blood sugar which was 564. With the EMS blood sugar was 564.. Patient also reported feeling chest pain, central, sudden onset, sharp in nature, 3-4/10 in severity, no radiation, aggravated by talking, relieved with not talking. Patient also reported she visited [facility] recently and was diagnosed with diabetes mellitus type 2 new onset, she was discharged with metformin and also she was given antibiotic clindamycin because of the multiple boils/folliculitis on the chest wall. Patient denied any shortness of breath, fever, dizziness, palpitation, abdominal sweating, acute joint pain or swelling. Initial lab workup revealed mild hyponatremia with sodium 132, blood sugar 495, elevated TSH 42.7, elevated AST 144, ALT 139, alkaline phosphatase 138, magnesium 1.6, negative for troponin I are BNP. EKG with a sinus rhythm, with left ventricular hypertrophy, no ST elevation. 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 Cardiovascular- deny acute shortness of breath or cough or palpitation Respiratory- denies cough or short of breath or wheezing Gastrointestinal- denies any rectal bleeding, nausea or vomiting Musculoskeletal-denies acute joint swelling or tenderness or redness Neurological- denies acute dysarthria, dysphagia, change in vision Psychiatry- denies depression or SI or HI Skin- denies acute rash or purpura Allergies: Coded Allergies: NO KNOWN ALLERGIES (Unverified , 09/02/14) Medications Current Medications Medications Dose Ordered Sig/Nikita Route Start Time Stop Time Status Last Admin Dose Admin Aspirin 81 mg DAILY PO 09/05/24 10:00 Atorvastatin Calcium 40 mg HS PO 09/05/24 22:00 Nitroglycerin 0.4 mg Q5MINP PRN SL 09/05/24 00:30 Morphine Sulfate 1 mg Q6HP PRN IV 09/05/24 00:30 Diagnostic Test (Pha) 1 strip IQ4HR 09/05/24 04:00 Insulin Human Regular IQ4HR SC 09/05/24 04:00 Dextrose 50 ml UD PRN IV 09/05/24 00:30 Insulin Glargine 15 units HS SC 09/05/24 22:00 Sodium Chloride 1,000 ml @ 150 mls/hr Q6H40M IV 09/05/24 00:30 Exam Vital Signs Vital Signs Date Time Temp Pulse Resp B/P (MAP) Pulse Ox O2 Delivery O2 Flow Rate FiO2 09/04/24 21:45 92 09/04/24 20:37 97.7 16 120/38 (65) 96 Exam General examination- recommend out, oriented, conversant HEENT- PEERLA, no acute nasal discharge Cardiovascular- S1-S2 audible, rate and rhythm regular, no murmur Respiratory- CTAB, no wheeze or rhonchi Gastrointestinal-nontender, bowel sound+. Nondistended Musculoskeletal-no acute joint swelling or tenderness or redness# Lower extremity- no leg edema Neurological- cranial nerves intact, no acute dysarthria or dysphagia Psychiatry- denies depression or SI or HI Skin- no acute rash or purpura Labs/Xrays Labs Test 09/04/24 21:48 09/04/24 20:59 09/04/24 20:48 Range/Units Sodium Level 134 L 136-145 mmol/L Potassium Level 4.5 3.5-5.1 mmol/L Chloride Level 100 98-107 mmol/L Carbon Dioxide Level 21 20-31 mmol/L Anion Gap 13 5-15 Blood Urea Nitrogen 7 L 9-23 mg/dL Creatinine 1.13 #H 0.550-1.02 mg/dL Glomerular Filtration Rate Calc 63 >90 mL/min BUN/Creatinine Ratio 6.2 L 10.0-20.0 Serum Glucose 536 *H 74-106 mg/dL Calcium Level 9.8 8.7-10.4 mg/dL Magnesium Level 1.6 1.6-2.6 mg/dL Total Bilirubin 0.6 0.2-1.0 mg/dL Aspartate Amino Transferase (AST) 144 H 13-40 U/L Alanine Aminotransferase (ALT) 139 H 7-40 U/L Alkaline Phosphatase 138 H 46-116 U/L Troponin I High Sensitivity 3 L </=34 ng/L Total Protein 7.6 5.7-8.2 g/dL Albumin 4.3 3.2-4.8 g/dL Thyroid Stimulating Hormone (TSH) 42.70 H 0.55-4.78 uIU/mL Beta HCG, Quantitative < 0.0 L 1.5-4.2 mIU/mL White Blood Count 8.4 4.4-10.8 10^3/uL Red Blood Count 4.93 4.0-5.20 10^6/uL Hemoglobin 14.7 12.2-16.2 g/dL Hematocrit 43.9 36.0-46.0 % Mean Corpuscular Volume 89.1 80.0-100.0 fL Mean Corpuscular Hemoglobin 29.8 28.0-32.0 pg Mean Corpuscular Hemoglobin Concent 33.5 32.0-36.0 g/dL Red Cell Distribution Width 14.5 H 11.8-14.3 % Platelet Count 238 140-450 10^3/uL Mean Platelet Volume 8.5 6.9-10.8 fL Neutrophils (%) (Auto) 53.3 37.0-80.0 % Lymphocytes (%) (Auto) 36.7 10.0-50.0 % Monocytes (%) (Auto) 7.4 0.0-12.0 % Eosinophils (%) (Auto) 2.1 0.0-7.0 % Basophils (%) (Auto) 0.5 0.0-2.0 % Neutrophils # (Auto) 4.4 1.6-8.6 10 ^3/uL Lymphocytes # (Auto) 3.1 0.4-5.4 10 ^3/uL Monocytes # (Auto) 0.6 0-1.3 10 ^3/uL Eosinophils # (Auto) 0.2 0-0.8 10 ^3/uL Basophils # (Auto) 0 0-0.2 10 ^3/uL Nucleated Red Blood Cells 0.0 % D-Dimer, Quantitative 0.40 0.0-0.49 mg/L FEU B-Type Natriuretic Peptide 13.83 0-100 pg/mL POC Glucose 484 *H 70-106 mg/dl Assessment/Plan Assessment/Plan #Uncontrolled diabetes mellitus type 2 -blood sugar level 546> 564> 495 -pending HGB A1c -continue saline as prescribed -continue insulin sliding scale as prescribed -continue insulin sliding scale as prescribed -continue ceftriaxone 1 g IV daily -continue clindamycin as prescribed # chest pain likely due to musculoskeletal/pericarditis -rule out acute coronary syndrome -troponin with a normal limit -D-dimer 0.4 -BNP 13.83 -CXR--Mild pulmonary vascular congestion. -EKG with a sinus rhythm, no ST elevation -pending echo 2D -continue aspirin 81 mg daily -atorvastatin 40 mg q.h.s. -continue other current management # multiple boils/folliculitis on the chest --continue clindamycin as prescribed # hypothyroidism -TSH 42.70 -levothyroxine 125 mcg IV stat -increase levothyroxine ilpm077 to 125 mg p.o. daily # transaminitis -AST 144, ALT 139, alkaline phosphatase 138, -monitor liver function test # morbid obesity -BMI 47.0 -patient is counseled about weight reduction, healthy diet, low-fat diet, physical activity # schizophrenia -patient reported she is not taking any medication at this moment -follow up outpatient # bipolar disorder --patient reported she is not taking any medication at this moment -follow up outpatient # manic depression --patient reported she is not taking any medication at this moment -follow up outpatient # anxiety -continue Ativan p.r.n. Goals of care/advance care planning; FULL CODE; discussed with the patient >15 minutes PUD prophylaxis: DVT prophylaxis: Patient ambulating Plan discussed with Dr. Caba, nursing staff, patient Total time spent on patient evaluation, chart review, assessment and plan, discussion discussion >30 minutes Plan discussed with: Patient Plan discussed with: Patient, Other (RN) My Orders Orders - MAAME SELLERS RESIDENT Procedure Category Date Status Time Magnesium LAB 09/05/24 In Process 00:19 Comprehensive LAB 09/05/24 In Process Metabolic Panel 00:19 Drug Screen LAB 09/05/24 Logged 00:19 Blood Alcohol LAB 09/05/24 In Process 00:19 Aspirin Tablet PHA 09/05/24 In Process 10:00 Atorvastatin (Lipitor) PHA 09/05/24 In Process 22:00 Nitroglycerin PHA 09/05/24 In Process Sublingual (Ntrostat 00:30 Morphine Sulfate PHA 09/05/24 In Process Injection 00:30 Glucose Blood PHA 09/05/24 In Process (Accu-Chek Comfort 04:00 Insulin R (Human) PHA 09/05/24 In Process (Insulin R) 04:00 Dextrose 50% Syringe PHA 09/05/24 In Process 00:30 Insulin Lantus PHA 09/05/24 In Process (Glargine) (Lantus) 22:00 Sodium Chloride 0.9% PHA 09/05/24 In Process 00:30 Date of Service: Sep 05, 2024 Billing Provider: AGA CABA MD Common Visit Codes: [id number]-[id number] INP/OBS CARE (HIGH) MAAME SELLERS RESIDENT Sep 05, 2024 01:41 AGA CABA MD Sep 06, 2024 08:20
[2024-09-05 02:37] LABS: Albumin 4.2 g/dL (3.2-4.8); Bilirubin, Direct 0.1 mg/dL (<0.3); Bilirubin, Total 0.6 mg/dL (0.2-1.0); Total Protein 7.4 g/dL (5.7-8.2)
[2024-09-05] MEDS ORDERED: DOCUSATE SOD 100 MG CAP PO PRN (03:15)
[2024-09-05] MEDS ORDERED: ONDANSETRON HCL 4 MG/2 ML VIAL IV PRN (03:15)
--- NOTE | 2024-09-05 03:45 | DVH ---
Examination: ABDL CLINICAL INDICATION: Ultrasound of the hepatobiliary system to rule out liver ;cirrhosis/pancreatitis/common bile duct obstruction COMPARISON: None. TECHNIQUE: Using real-time ultrasonic imaging, the abdomen was examined. FINDINGS: Liver is enlarged, measuring 20.92 cm with diffusely increased echogenicity of the liver consistent w ith fatty infiltration of liver. No evidence of intrahepatic ductal dilatation. Hepatic veins are p atent. Main portal vein shows normal hepatopetal flow. The gallbladder is not visualized, probably contracted. The common bile duct measures 4.93 mm anteroposteriorly, which is normal. The pancreas appears to be normal. Right kidney demonstrates normal morphology and cortical echogenicity, with no evidence of stones, ma sses or hydronephrosis. Right kidney measures 12 cm in length. IMPRESSION: 1. Mild hepatomegaly with fatty infiltration of liver. 2. Gallbladder is not visualized, probably contracted. Suggest further evaluation in fasting state. Electronically Signed 09/05/2024 03:44 Corby Ordonez
[2024-09-05] MEDS: SODIUM CHLORIDE 0.9% 1,000 ML IV ONE (04:09)
[2024-09-05] MEDS: SODIUM CHLORIDE 0.9% 1,000 ML IV SCH (04:10)
[2024-09-05] MEDS: InsuLIN REG 1unit/0.01ml Soln (100units/ml) IV ONE (04:10)
[2024-09-05] MEDS: InsuLIN REG 1unit/0.01ml Soln (100units/ml) SC SCH (04:22)
[2024-09-05] MEDS: ACCU-CHEK COMFORT CURVE STRIP VI SCH (04:23)
[2024-09-05] MEDS: cefTRIAXone 1GM/50ML D5W 50 ML IV ONE (04:29)
[2024-09-05] MEDS: ASPirin 325 MG TAB PO ONE (04:29)
[2024-09-05] MEDS: ATORVASTATIN 20 MG TAB PO ONE (04:29)
[2024-09-05 04:44] LABS: Basophils # (auto) 0 10 ^3/uL (0-0.2); Basophils % (auto) 0.4 % (0.0-2.0); Eosinophils # (auto) 0.2 10 ^3/uL (0-0.8); Hematocrit 44.4 % (36.0-46.0); Hemoglobin 14.8 g/dL (12.2-16.2); Lymphocytes % (auto) 38.1 % (10.0-50.0); Mean Corpuscular Hemoglobin 29.7 pg (28.0-32.0); Mean Corpuscular Hgb Conc. 33.3 g/dL (32.0-36.0); Mean Corpuscular Volume 89.2 fL (80.0-100.0); Monocytes # (auto) 0.7 10 ^3/uL (0-1.3); Monocytes % (auto) 8.6 % (0.0-12.0); Neutrophils % (auto) 49.9 % (37.0-80.0); Platelet Count (auto) 241 10^3/uL (140-450); Red Blood Cells 4.98 10^6/uL (4.0-5.20); Red Cell Distribution Width 14.2 % (11.8-14.3)
[2024-09-05 04:58] LABS: Albumin 4.4 g/dL (3.2-4.8); Anion Gap 8 (5-15); BUN/Creatinine Ratio 10.5 (10.0-20.0); Blood Urea Nitrogen 10 mg/dL (9-23); Carbon Dioxide 26 mmol/L (20-31); Chloride 101 mmol/L (98-107); Magnesium 1.6 mg/dL (1.6-2.6); Potassium 4.2 mmol/L (3.5-5.1)
[2024-09-05 04:59] LABS: Bilirubin, Total 0.8 mg/dL (0.2-1.0); Total Protein 7.8 g/dL (5.7-8.2)
[2024-09-05] MEDS: CLINDAMYCIN 300MG IV 50 ML IV ONE (05:00)
[2024-09-05 05:18] LABS: Alanine Aminotransferase 140 U/L (7-40); Alkaline Phosphatase 136 U/L (46-116); Aspartate Aminotransferase 142 U/L (13-40); Glucose 420 mg/dL (74-106); Sodium 135 mmol/L (136-145)
[2024-09-05] MEDS: INSULIN LANTUS (GLARGINE) 1 /0.01ml (100units/ml) SC ONE (05:59)
[2024-09-05] MEDS: SODIUM CHLOR 0.9% PF (SALINE LOCK) 10ML VIAL/SYR IV SCH (06:00)
[2024-09-05 06:26] VITALS: BP 112/75; PULSE 81; RESP 17; TEMP 97.7; O2SAT 94
[2024-09-05 06:36] VITALS: PULSE 81; RESP 18; O2SAT 96
[2024-09-05] MEDS ORDERED: METF-370 PO (06:36)
[2024-09-05] MEDS ORDERED: CLIN-203 PO (06:36)
[2024-09-05 06:37] VITALS: BP 112/75; PULSE 81; RESP 17; TEMP 97.7; O2SAT 94
[2024-09-05] MEDS: LEVOTHYROXINE SODIUM 100 MCG/5 ML INJ IV ONE (06:38)
[2024-09-05] MEDS: MAGNESIUM SULFATE 1GM/100ML 100 ML IV ONE (06:42)
--- NOTE | 2024-09-05 06:44 | ECG ---
[facility] Test Date: 2024-09-04 Test Time: 20:44:44 Pat Name: PAUL LAZCANO Department: ED Room: 0281T Gender: F Brazer Controlled [employer] Furnace: FIDEL : 1985 Requested By: KIMBERLEY MARIE Order Number: [id number] Reading MD: Measurements Intervals [place] Rate: 87 P: 36 MA: 171 QRS: -29 QRSD: 108 T: -28 QT: 391 QTc: 471 Interpretive Statements Sinus rhythm Left ventricular hypertrophy Nonspecific T abnormalities, inferior leads Please click the below link to view image of tracing.
--- NOTE | 2024-09-05 06:45 | ECG ---
[facility] Test Date: 2024-09-04 Test Time: 21:45:52 Pat Name: PAUL LAZCANO Department: ED Room: 0281T Gender: F Social Media Assistant: FIDEL : 1985 Requested By: KIMBERLEY MARIE Order Number: [id number] Reading MD: Measurements Intervals [place] Rate: 92 P: 44 KS: 171 QRS: -32 QRSD: 109 T: -12 QT: 381 QTc: 472 Interpretive Statements Sinus rhythm Left ventricular hypertrophy Borderline T abnormalities, inferior leads Please click the below link to view image of tracing.
[2024-09-05] MEDS: SODIUM CHLORIDE 0.9% 500 ML IV ONE (06:57)
[2024-09-05 07:10] LABS: Cholesterol 239 mg/dL (< 200); HDL Cholesterol 36 mg/dL (40-59); LDL Cholesterol 158 mg/dL (< 100); Triglycerides 388 mg/dL (< 150)
[2024-09-05 07:28] LABS: Free T3 2.86 pg/mL (2.3-4.2)
[2024-09-05 07:30] LABS: Free T4 (Free Thyroxine) 0.79 ng/dL (0.89-1.76)
[2024-09-05 08:10] VITALS: PULSE 78
[2024-09-05] MEDS: CLINDAMYCIN 600MG IV 50 ML IV SCH (08:26)
[2024-09-05] MEDS: ASPirin 81 mg TAB PO SCH (08:55)
[2024-09-05 09:00] VITALS: BP 103/65; PULSE 78; RESP 18; TEMP 97.5; O2SAT 93
[2024-09-05 11:22] LABS: Urine Bacteria FEW /hpf (None Seen); Urine Blood Negative /uL (Negative); Urine Budding Yeast OCCASIONAL /hpf (None Seen); Urine Clarity Clear (Clear); Urine Color Light-Yellow (Yellow); Urine Protein, UAD Negative (Negative); Urine Specific Gravity 1.046 (1.001-1.035); Urine Urobilinogen Normal (Negative); Urine WBC 1 /hpf (0 - 5); Urine pH 5.5 (5.0-9.0)
[2024-09-05 11:38] LABS: Amphetamine Screen, Urine Neg (NEGATIVE); Barbiturate Scree,Urine Neg (NEGATIVE); Benzodiazephine Screen, Urine Neg (NEGATIVE); Cocaine Screen, Urine Neg (NEGATIVE)
[2024-09-05 11:39] LABS: Cannabinoid Screen, Urine Neg (NEGATIVE); Opiate Scree,Urine Neg (NEGATIVE); Phencyclidine Screen, Urine Neg (NEGATIVE)
--- NOTE | 2024-09-05 11:42 | DVHPNRES ---
Progress Note Date Seen: Sep 05, 2024 Resident Creating Document: KATI WORKMAN RESIDENT Medical Necessity Reason Pt with a Central, PICC or Fol: No Subjective Review of Systems PAUL LAZCANO is a 38-year-old female with PMH of type 2 DM, HTN, hypothyroidism, bipolar, schizophrenia, anxiety, CHF planning to the ED with the chief complaints of dizziness and elevated blood glucose since yesterday. Patient reported she recently diagnosed as type 2 DM, currently taking metformin 500 mg 2 times, despite patient feeling dizzy and checked blood glucose which showed around minutes. Patient also reported sudden onset of sharp chest pain 4/10 in intensity with no aggravating or relieving factors is brought her to visit ED. on my assessment patient denies fever, nausea, vomiting, palpitations, shortness of breath, diaphoresis, and other acute associated symptoms. Patient reported she has been getting boils or folliculitis abdomen suggestive of for last 3 weeks wounds. Patient also reported tingling and numbness in lower limbs. PMH: Type 2 DM, hypothyroidism, bipolar, schizophrenia, anxiety, CHF PSH: Appendectomy Family history: HIV in mother and carcinoma of lung in father Social history: Sober living. Patient reported being sober from alcoholism for last 4 and half month, smokes 5 cigarettes per day, reports being sober from drug abuse from weed/marijuana/methamphetamine for last 4 and half months, Allergies: No known allergies Patient seen and examined at the bedside. Patient reported improvement in her symptoms since admission, reported no new complaints. Continuously monitoring blood glucose, HGB A1c more than 14, currently on sliding scale and Lantus 10 units. due to history of CHF ordered new echocardiogram. Objective vital signs Vital Sign Date Time Temp Pulse Resp B/P (MAP) Pulse Ox O2 Delivery O2 Flow Rate FiO2 09/05/24 09:00 97.5 78 18 103/65 (78) 93 97.5 09/05/24 08:10 Room Air* 0 21 medications Current Medications Medications Dose Ordered Sig/Nikita Route Start Time Stop Time Status Last Admin Dose Admin Aspirin 81 mg DAILY PO 09/05/24 10:00 09/05/24 08:55 81 MG Atorvastatin Calcium 40 mg HS PO 09/05/24 22:00 Nitroglycerin 0.4 mg Q5MINP PRN SL 09/05/24 00:30 Morphine Sulfate 1 mg Q6HP PRN IV 09/05/24 00:30 Diagnostic Test (Pha) 1 strip IQ4HR 09/05/24 04:00 09/05/24 08:07 1 STRIP Insulin Human Regular IQ4HR SC 09/05/24 04:00 09/05/24 08:08 20 UNITS Dextrose 50 ml UD PRN IV 09/05/24 00:30 Insulin Glargine 15 units HS SC 09/05/24 22:00 Sodium Chloride 1,000 ml @ 150 mls/hr Q6H40M IV 09/05/24 00:30 09/05/24 07:10 150 MLS/HR Clindamycin Phosphate 50 ml @ 50 mls/hr Q8HR IV 09/05/24 06:00 09/05/24 08:26 50 MLS/HR Ceftriaxone Sodium 50 ml @ 100 mls/hr DAILY@09 IV 09/06/24 09:00 Levothyroxine Sodium 125 mcg QAM@0600 PO 09/06/24 06:00 Sodium Chloride 10 ml Q8HR IV 09/05/24 06:00 09/05/24 06:00 10 ML Ondansetron HCl 4 mg Q4HP PRN IV 09/05/24 03:15 Docusate Sodium 100 mg BIDPRN PRN PO 09/05/24 03:15 Nitroglycerin 0.4 mg Q5MINP PRN SL 09/05/24 03:15 Morphine Sulfate 2 mg Q30M PRN IV 09/05/24 03:15 Examination Pt is lying on bed General Appearance: Alert, Oriented X3, Cooperative, Not in acute distress HEENT: Atraumatic, Mucous membranes moist/pink Respiratory: Clear to auscultation, Normal air movement, No added sounds Cardiovascular: Regular rate, Normal S1, Normal S2, No murmurs Abdominal: Active bowel sounds, Soft, no distention, no tenderness Extremities: No edema, Normal pulses, No tenderness/swelling Skin: Folliculitis on the chest and abdomen some are healing stage, some are starting stage. Neuro: Normal speech, sensorimotor deficits none Psych/Mental Status: Mental status NL, Mood NL Nurse was there as sharperone during examination laboratory and microbiology Laboratory Tests 09/05/24 04:15 Test 09/05/24 04:15 Range/Units Serum Glucose 420 *H 74-106 mg/dL Labs and/or images reviewed: Labs reviewed by me, Image(s) reviewed by me Problem List/Assessment/Plan Problem List/Assessment/Plan # likely metabolic syndrome # Uncontrolled type 2 DM with a HGB A1c more than 14 # dizziness likely due to hyperglycemia # ? Diabetic neuropathy - currently insulin sliding scale and IVF - Continuously monitor blood glucose - given 10 units of Lantus. - Ordered diabetic education - counseled regarding lifestyle modification including diet and exercise # chest pain likely musculoskeletal # ruled out ACS - 12 lead EKG and troponins x3 were negative - Ordered new echocardiogram # chronic systolic versus diastolic CHF - currently not on any medications - ordered urine echocardiogram - CXR showed mild pulmonary vascular congestion # Morbid obesity with a BMI 47 # dyslipidemia - counseled regarding lifestyle modification including diet and exercise - elevated lipid panel - started on Lipitor 40 mg # hypothyroidism -TSH 42.70 -levothyroxine 125 mcg IV stat -increase levothyroxine [id number] to 125 mg p.o. daily # Multiple boils/folliculitis on the chest and abdomen - continue clindamycin # Transaminitis likely due to fatty infiltration - monitor lab - USG showed mild hepatomegaly with fatty infiltration of liver and contracted gallbladder # history of schizophrenia, bipolar, anxiety - no suicidal ideation - resumed home meds No VTE PPX No GI PPX Diabetic diet Reconciled home meds Goals of care discussed with the patient for more than 27 minutes: Full code status Case management discussed with Dr. Salvador, patient and nurse Plan discussed with: Patient My Orders My Orders Orders - KATI WORKMAN Procedure Category Date Status Time Provide Diabetic ORDERS 09/05/24 Transmitted Education 09:39 KATI WORKMAN Sep 05, 2024 11:42
[2024-09-05 13:00] VITALS: BP 115/73; PULSE 76; RESP 19; TEMP 97.7; O2SAT 97
[2024-09-05] MEDS: ACETAMINOPHEN 325 MG TAB PO ONE (14:02)
--- NOTE | 2024-09-05 17:00 | DVHSR ---
APPROVED REPORT EXAM: LIMITED Two-dimensional and M-mode echocardiogram with Doppler and color Doppler. Blood Pressure: 112/75 mmHg INDICATION Chest Pain RISK FACTORS Obesity: Height: 5'3, DIMENSIONS LVDd5.7 (3.8-5.7cm)LA (2D)3.2 (1.9-4.0cm)Aortic Root3.6 (2.0-3.7cm) LVDs4.2 (2.5-4.0cm)LA (MM) (1.9-4.0cm)Aortic Cusp Exc1.8 (1.5-2.0cm) EF (%) 55.0 (55-70%)Rt. Atrium (1.9-4.0cm)Asc. Aorta cm IVSd0.8 (0.7-1.1cm)RV (D) (1.8-2.4cm) PWd1.0 (0.7-1.1cm) Mitral Valve MitralMitral Stenosis E wave0.70m/sMV Mean GR.mmHg A wave0.82m/sMV Peak GR.96mmHg E/A ratio0.92D MVAcm2 DECEL [id number] 1/2 Timems Aortic Valve Aortic ValveAortic Stenosis V10.88m/Sravan Mean GR.5mmHg V21.47m/Sravan Peak GR.9mmHg LVOT Diameter2.1 (1.8-2.4cm)Doppler AVA2.07cm2 Tricuspid Valve TR Velocity2.32m/s [id number] Conclusion Technically limited study due to poor acoustic window. Overall preserved left ventricular systolic function estimated ejection fraction of 50%. There is a grade 1 diastolic dysfunction. Normal right ventricular size and dimension. Normal right ventricular systolic function. Normal biatrial size and dimension. Normal Aortic valve structure and function. Normal mitral valve structure and function. Normal tricuspid valve structure and function. The pulmonary valve is grossly normal. No pericardial effusion.
--- NOTE | 2024-09-05 18:22 | DVHDSRES ---
Discharge Summary Date of Admission Resident Creating Document: KTAI WORKMAN RESIDENT Sep 05, 2024 at 03:17 Date of Discharge: Sep 05, 2024 Admitting Diagnosis Dizziness Labs/Diagnostic Data: Laboratory Results Test 09/05/24 15:54 09/05/24 10:45 09/05/24 04:15 09/04/24 21:48 POC Glucose 199 mg/dl (70-106) Urine Color Light-yellow (Yellow) Urine Clarity Clear (Clear) Urine pH 5.5 (5.0-9.0) Urine Specific [place] 1.046 (1.001-1.035) Urine Protein Negative (Negative) Urine Ketones Negative (Negative) Urine Blood Negative /uL (Negative) Urine Nitrite Negative (Negative) Urine Bilirubin Negative (Negative) Urine Urobilinogen Normal mg/dL (Negative) Urine Leukocyte Esterase Negative /uL (Negative) Urine RBC 2 /hpf (0 - 4) Urine WBC 1 /hpf (0 - 5) Urine Squamous Epithelial Cells Few /hpf (<5) Urine Bacteria Few /hpf (None Seen) Urine Yeast (Budding) Occasional /hpf (None Urine Glucose 4+ mg/dL (Normal) Urine Opiates Screen Neg (NEGATIVE) Urine Fentanyl Screen Neg (NEGATIVE) Urine Barbiturates Screen Neg (NEGATIVE) Urine Phencyclidine Screen Neg (NEGATIVE) Urine Amphetamines Screen Neg (NEGATIVE) Urine Benzodiazepines Screen Neg (NEGATIVE) Urine Cocaine Screen Neg (NEGATIVE) Urine Cannabinoids Screen Neg (NEGATIVE) White Blood Count 8.0 10^3/uL (4.4-10.8) Red Blood Count 4.98 10^6/uL (4.0-5.20) Hemoglobin 14.8 g/dL (12.2-16.2) Hematocrit 44.4 % (36.0-46.0) Mean Corpuscular Volume 89.2 fL (80.0-100.0) Mean Corpuscular Hemoglobin 29.7 pg (28.0-32.0) Mean Corpuscular Hemoglobin Concent 33.3 g/dL (32.0-36.0) Red Cell Distribution Width 14.2 % (11.8-14.3) Platelet Count 241 10^3/uL (140-450) Mean Platelet Volume 8.7 fL (6.9-10.8) Neutrophils (%) (Auto) 49.9 % (37.0-80.0) Lymphocytes (%) (Auto) 38.1 % (10.0-50.0) Monocytes (%) (Auto) 8.6 % (0.0-12.0) Eosinophils (%) (Auto) 3.0 % (0.0-7.0) Basophils (%) (Auto) 0.4 % (0.0-2.0) Neutrophils # (Auto) 4.0 10 ^3/uL (1.6-8.6) Lymphocytes # (Auto) 3.0 10 ^3/uL (0.4-5.4) Monocytes # (Auto) 0.7 10 ^3/uL (0-1.3) Eosinophils # (Auto) 0.2 10 ^3/uL (0-0.8) Basophils # (Auto) 0 10 ^3/uL (0-0.2) Nucleated Red Blood Cells 0.0 % Sodium Level 135 mmol/L (136-145) Potassium Level 4.2 mmol/L (3.5-5.1) Chloride Level 101 mmol/L (98-107) Carbon Dioxide Level 26 mmol/L (20-31) Anion Gap 8 (5-15) Blood Urea Nitrogen 10 mg/dL (9-23) Creatinine 0.95 mg/dL (0.550-1.02) Glomerular Filtration Rate Calc 78 mL/min (>90) BUN/Creatinine Ratio 10.5 (10.0-20.0) Serum Glucose 420 mg/dL (74-106) Hemoglobin A1c > 14.0 % A1C (<5.7) Calcium Level 10.0 mg/dL (8.7-10.4) Magnesium Level 1.6 mg/dL (1.6-2.6) Total Bilirubin 0.8 mg/dL (0.2-1.0) Aspartate Amino Transferase (AST) 142 U/L (13-40) Alanine Aminotransferase (ALT) 140 U/L (7-40) Alkaline Phosphatase 136 U/L (46-116) Total Protein 7.8 g/dL (5.7-8.2) Albumin 4.4 g/dL (3.2-4.8) Triglycerides Level 388 mg/dL (< 150) Cholesterol Level 239 mg/dL (< 200) LDL Cholesterol 158 mg/dL (< 100) HDL Cholesterol 36 mg/dL (40-59) Vitamin B12 Level 290 pg/mL (211-911) Vitamin D 25-Hydroxy 13.5 ng/mL (30.0-100) Free Thyroxine (T4) Calculated 0.79 ng/dL (0.89-1.76) Free Triiodothyronine (T3) pg/mL 2.86 pg/mL (2.3-4.2) Direct Bilirubin 0.1 mg/dL (<0.3) Troponin I High Sensitivity 3 ng/L (</=34) Thyroid Stimulating Hormone (TSH) 42.70 uIU/mL (0.55-4.78) Beta HCG, Quantitative < 0.0 mIU/mL (1.5-4.2) Plasma/Serum Blood Alcohol < 3.0 mg/dL (<10) Test 09/04/24 20:59 D-Dimer, Quantitative 0.40 mg/L FEU (0.0-0.49) B-Type Natriuretic Peptide 13.83 pg/mL (0-100) Other Laboratory Tests 09/05/24 04:15 Brief Hx & Hospital Course: PAUL LAZCANO is a 38-year-old female with PMH of type 2 DM, HTN, hypothyroidism, bipolar, schizophrenia, anxiety, CHF planning to the ED with the chief complaints of dizziness and elevated blood glucose since yesterday. Patient reported she recently diagnosed as type 2 DM, currently taking metformin 500 mg 2 times, despite patient feeling dizzy and checked blood glucose which showed around minutes. Patient also reported sudden onset of sharp chest pain 4/10 in intensity with no aggravating or relieving factors is brought her to visit ED. on my assessment patient denies fever, nausea, vomiting, palpitations, shortness of breath, diaphoresis, and other acute associated symptoms. Patient reported she has been getting boils or folliculitis abdomen suggestive of for last 3 weeks wounds. Patient also reported tingling and numbness in lower limbs. Patient required hospital admission for further evaluation and management of hyperglycemia. Measured HbA1c which is more than 14, continuously monitor blood glucose and patient was on sliding scale and Lantus 10 units. ordered diabetic education. Due to history of CHF we ordered new echocardiogram which showed preserved LVEF with 50% and grade 1 diastolic dysfunction. Due to morbid obesity patient will advised about healthy lifestyle modifications including diet, exercise. ultrasound of liver showed mild hepatomegaly with fatty infiltration of liver. CXR showed mild pulmonary vascular congestion. Patient was advised about medication adherence. Patient is still under treatment, but wants to leave against medical advice. Patient was advised risks of leaving AMA and verbalized understanding. Despite of expanding patient decided to leave against medical advice. Patient was encouraged to return to ED if symptoms persist or worsen. Unable to perform physical examination as patient left AMA. Operations or Procedures Ultrasound of liver showed mild hepatomegaly with fatty infiltration of liver. CXR showed mild pulmonary vascular congestion. ECHO Conclusion Technically limited study due to poor acoustic window. Overall preserved left ventricular systolic function estimated ejection fraction of 50%. There is a grade 1 diastolic dysfunction. Normal right ventricular size and dimension. Normal right ventricular systolic function. Normal biatrial size and dimension. Normal Aortic valve structure and function. Normal mitral valve structure and function. Normal tricuspid valve structure and function. The pulmonary valve is grossly normal. No pericardial effusion. Condition at Discharge: Undetermined Final Diagnosis/Problems List # Likely metabolic syndrome # Uncontrolled type 2 DM with a HGB A1c more than 14 # Dizziness likely due to hyperglycemia # ? Diabetic neuropathy # Chest pain likely musculoskeletal # Culed out ACS # Chronic systolic versus diastolic CHF # Pulmonary vascular congestion likely due to heart failure # Morbid obesity with a BMI 47 # Dyslipidemia # Hypothyroidism # Multiple boils/folliculitis on the chest and abdomen # Transaminitis likely due to fatty infiltration # history of schizophrenia, bipolar, anxiety Discharge Disposition: AMA Discharge Statement: "Patient was advised to return to the ER or call 911 if any headaches, dizziness, shortness of breath, chest pain, abdominal pain, bleeding, fevers, or worsening of medical condition. Patient was counseled about treatment plan, medications, possible side effects, patientverbalized understanding. All questions were answered to the best of my ability. This discharge took greater then 30 minutes in planning, reviewing documentation, counseling the patient, and discussing with other team members." ASSESSMENT ASSESSMENT Assessment KATI WORKMAN RESIDENT Sep 05, 2024 18:22
[2024-09-05] MEDS ORDERED: ATORVASTATIN 20 MG TAB PO SCH (22:00)
[2024-09-05] MEDS ORDERED: INSULIN LANTUS (GLARGINE) 1 /0.01ml (100units/ml) SC SCH (22:00)
[2024-09-06] MEDS ORDERED: LEVOTHYROXINE SODIUM 50 MCG TAB PO SCH (06:00)
[2024-09-06] MEDS ORDERED: cefTRIAXone 1GM/50ML D5W 50 ML IV SCH (09:00)
[2024-09-06 10:03] LABS: Hepatitis B Core Total AB Negative (Negative)
[2024-09-06 10:57] LABS: Hepatitis A Total Antibody Positive (Negative)
[2024-09-06 10:58] LABS: Hepatitis B Surface Antibody Negative (Negative); Hepatitis B Surface Antigen Negative (Negative); Hepatitis C Antibody Negative (Negative)
== END 2024-09-05 16:30 | disposition left against medical advice (07) | DRG 638 ==
LOC: ER 20:33 → EDBD 20:33 → TELE 09-05 03:17 → TELE-WESTW 09-05 06:26
PROVIDERS: ADMIT Internal Medicine Geriatric Medicine; ATTEND Internal Medicine Geriatric Medicine
DX: E11.65 Type 2 diabetes mellitus with hyperglycemia (principal); I50.42 Chronic combined systolic (congestive) and diastolic (congestive) heart failure; Z68.42 Body mass index [BMI] 45.0-49.9, adult; R07.89 Other chest pain; I11.0 Hypertensive heart disease with heart failure; L73.9 Follicular disorder, unspecified; E03.9 Hypothyroidism, unspecified; E66.01 Morbid (severe) obesity due to excess calories; E11.40 Type 2 diabetes mellitus with diabetic neuropathy, unspecified; E78.5 Hyperlipidemia, unspecified; E88.810 Metabolic syndrome; F20.9 Schizophrenia, unspecified; F41.9 Anxiety disorder, unspecified; F17.210 Nicotine dependence, cigarettes, uncomplicated; F31.9 Bipolar disorder, unspecified; Z90.49 Acquired absence of other specified parts of digestive tract; Z80.1 Family history of malignant neoplasm of trachea, bronchus and lung; Z79.82 Long term (current) use of aspirin
CPT/HCPCS: 36415; 71045; 76705; 80048; 80053; 80061; 80076; 80307; 80320; 81001; 82306; 82607; 82962; 83036; 83735; 83880; 84439; 84443; 84481; 84484; 84702; 85025; 85379; 86704; 86706; 86708; 86803; 87081; 87086; 87340; 93005; 93306; 99291; G0378; J1815; J3490

== ENCOUNTER 2025-02-04 23:46 | Inpatient (IN) | payer OTHER, MEDICAID ==
[~2025-02-04] VITALS: Ht 157.5 cm; Wt 113.0 kg
[~2025-02-04 23:46] MED LIST changes: +CLIN-203 PO; +METF-370 PO
[2025-02-05] MEDS: AMPICILLIN & SULBACTAM SODIUM 3 GM in SODIUM CHL 0.9% 100 ML IV STA (00:16)
[2025-02-05] MEDS: SODIUM CHLORIDE 0.9% 1,000 ML IV ONE ×4 (00:47→08:34)
--- NOTE | 2025-02-05 00:55 | DVH ---
EXAM: XY CHEST XRAY 1 VIEW CLINICAL HISTORY: Suspected Sepsis TECHNIQUE: Single AP view of the chest WID: COMPARISON: XY CHEST PORTABLE on DOS: 09/04/24 FINDINGS: Lines and tubes: None Chest: The heart size and pulmonary vasculature is within normal limits. No pleural effusion, pneumothorax, or consolidation. The osseous structures are grossly intact. IMPRESSION: No acute cardiopulmonary abnormality.
[2025-02-05 01:10] LABS: Basophils # (auto) 0.1 10 ^3/uL (0-0.2); Basophils % (auto) 0.9 % (0.0-2.0); Eosinophils # (auto) 0.1 10 ^3/uL (0-0.8); Eosinophils % (auto) 0.8 % (0.0-7.0); Hematocrit 42.9 % (36.0-46.0); Hemoglobin 14.3 g/dL (12.2-16.2); Lymphocytes # (auto) 3.8 10 ^3/uL (0.4-5.4); Lymphocytes % (auto) 29.3 % (10.0-50.0); Mean Corpuscular Hemoglobin 29.2 pg (28.0-32.0); Mean Corpuscular Hgb Conc. 33.4 g/dL (32.0-36.0); Mean Corpuscular Volume 87.4 fL (80.0-100.0); Monocytes # (auto) 0.9 10 ^3/uL (0-1.3); Platelet Count (auto) 363 10^3/uL (140-450); Red Blood Cells 4.91 10^6/uL (4.0-5.20); Red Cell Distribution Width 13.9 % (11.8-14.3); White Blood Cell 12.9 10^3/uL (4.4-10.8)
--- NOTE | 2025-02-05 01:25 | ED.PDOC ---
History of Present Illness HPI Comments 39 y/o morbidly obese F, with a history of anxiety, bipolar disorder, CHF, depression, DM II with neuropathy, HLD, schizoaffective disorder, hypothyroidism, and polysubstance abuse, presents with suicidal ideations, with associated auditory and visual hallucinations. Patient reports recent homelessness after getting to verbal altercation with presents in rehabilitation housing facility she was at and relapsing in using alcohol and illicit substances. Admits to methamphetamine use 2 days ago. Inquires for the mental health hospitalization. Denies any homicidal ideations, current suicidal plans or recent suicide attempts, chest pain, shortness of breath or further associated symptoms. Upon to ED, patient was found hypotensive, with a left blood pressure cuff reading of 77/43 and a right blood pressure cuff reading of 69/47. Chief Complaint: Low Blood Pressure Time Seen by MD: 00:10 Primary Care Provider: NONE Reviewed Notes: Nurses Notes, Medications, Allergies Allergies: Coded Allergies: NO KNOWN ALLERGIES (Unverified , 09/02/14) Home Meds Active Scripts Pantoprazole Sodium Sesquihydr (Protonix) 40 Mg Tab, 40 MG PO DAILY, #20 TAB 1 daily Prov:GAVIN APNOTE 06/17/15 Reported Medications Clindamycin HCl (Clindamycin Hydrochloride) 300 Mg Cap, 1 CAP PO TID 09/05/24 Metformin Hydrochloride (Metformin Hcl) 500 Mg Tab, 1 TAB PO BID 09/05/24 Risperidone (Risperidone) 2 Mg Tab, 1 TAB PO 02/07/21 Nitrofurantoin Monohyd Macro (Nitrofurantoin Monohydrat) 100 Mg Cap, 1 CAP PO BID 02/07/21 Levothyroxine Sodium (Levothyroxine Sodium) 125 Mcg Tab, 1 TAB PO DAILYPRN 02/07/21 Quetiapine Fumerate (QUETIAPINE FUMARATE) 100 Mg Tab, TAB PO 02/07/21 Sertraline Hcl (Sertraline Hcl) 100 Mg Tab, 1 TAB PO DAILYPRN 02/07/21 Information Source: Patient Mode of Arrival: Ambulatory Severity: Moderate Timing: Hours Duration: Since onset Prehospital treatment: None Review of Systems: REVIEW OF SYSTEMS: No fever, no chills, HEENT: No neck pain, no blurred vision Cardiac: No chest pain. No palpitations. Lungs: No shortness of breath, GI: No abdominal pain, no vomiting Musculoskeletal: No joint pain , no back pain Skin: No rash, no wound Neuro: No headache, no dizziness, no syncope Psych: Suicidal ideations, visual and auditory hallucination Vital Signs Vital Signs Date Time Temp Pulse Resp B/P (MAP) Pulse Ox O2 Delivery O2 Flow Rate FiO2 02/05/25 04:00 99 22 59/ 97 02/05/25 01:26 97.9 97.9 Physical Exam General: Awake, alert and oriented. No acute distress. Skin: Skin in warm, dry and intact without rashes or lesions. HEENT: Bilateral tonsillar edema and posterior pharyngeal erythema. The head is normocephalic and atraumatic. Conjunctivae are clear without exudates or hemorrhage. Sclera is non-icteric. Neck: Normal range of motion. No JVD. Cardiac: Regular rate Respiratory: No signs of respiratory distress. No Stridor. Extremities: Upper and lower extremities are atraumatic in appearance without deformity. Neurological: The patient is awake, alert and oriented to person, place, and time with normal speech. Speech is clear. There is no facial asymmetry. Psychiatric: Appropriate mood and affect. Good judgement and insight. Past Medical History PAST MEDICAL HISTORY: Anxiety, CHF, Depression, DM (Type 2 with neuropathy), Gallstones, High Lipids, Schizophrenia, Thyroid (Hypothyroidism) Past Medical History (Other): Bipolar disorder Multiple boils/cellulitis on the chest and abdomen Transaminitis Surgical History: Appendectomy TUNA PURSE SEINER History: No Pertinent TUNA PURSE SEINER History Family History Family History: Reviewed,noncontributory to illness Social History Smoker: Cigarettes, Less Than 1 Pack/Day Alcohol: Denies ETOH Use Drugs: Cocaine, Marijuana, Methamphetamine Lives In: Homeless Was a procedure done? Was a procedure done?: No Differential Dx Considerations may include: Schizoaffective disorder, mood disorder, bipolar disorder, substance abuse, depression, hopelessness, suicidal ideations, hypotension, among others. X-Ray, Labs, Meds, VS Vital Signs Date Time Temp Pulse Resp B/P (MAP) Pulse Ox O2 Delivery O2 Flow Rate FiO2 02/05/25 04:00 99 22 59/ 97 02/05/25 03:00 90 19 108/71 (83) 97 02/05/25 02:00 90 21 79/52 (61) 95 02/05/25 01:26 97.9 86 13 65/47 (53) 95 97.9 02/05/25 00:20 85 02/04/25 23:52 97.8 109 18 77/43 (54) 99 97.8 Lab Test 02/05/25 04:05 02/05/25 01:50 02/05/25 01:30 02/05/25 00:58 Range/Units Troponin I High Sensitivity 6 7 7 </=34 ng/L Influenza Type A Antigen Negative Negative Influenza Type B Antigen Negative Negative SARS-CoV-2 Antigen (Rapid) Negative NEGATIVE Group A Streptococcus Rapid Negative White Blood Count 12.9 H 4.4-10.8 10^3/uL Red Blood Count 4.91 4.0-5.20 10^6/uL Hemoglobin 14.3 12.2-16.2 g/dL Hematocrit 42.9 36.0-46.0 % Mean Corpuscular Volume 87.4 80.0-100.0 fL Mean Corpuscular Hemoglobin 29.2 28.0-32.0 pg Mean Corpuscular Hemoglobin Concent 33.4 32.0-36.0 g/dL Red Cell Distribution Width 13.9 11.8-14.3 % Platelet Count 363 140-450 10^3/uL Mean Platelet Volume 6.8 L 6.9-10.8 fL Neutrophils (%) (Auto) 62.0 37.0-80.0 % Lymphocytes (%) (Auto) 29.3 10.0-50.0 % Monocytes (%) (Auto) 7.0 0.0-12.0 % Eosinophils (%) (Auto) 0.8 0.0-7.0 % Basophils (%) (Auto) 0.9 0.0-2.0 % Neutrophils # (Auto) 8.0 1.6-8.6 10 ^3/uL Lymphocytes # (Auto) 3.8 0.4-5.4 10 ^3/uL Monocytes # (Auto) 0.9 0-1.3 10 ^3/uL Eosinophils # (Auto) 0.1 0-0.8 10 ^3/uL Basophils # (Auto) 0.1 0-0.2 10 ^3/uL Nucleated Red Blood Cells 0.0 % Sodium Level 136 136-145 mmol/L Potassium Level 3.4 L 3.5-5.1 mmol/L Chloride Level 102 98-107 mmol/L Carbon Dioxide Level 21 20-31 mmol/L Anion Gap 13 5-15 Blood Urea Nitrogen 33 H 9-23 mg/dL Creatinine 1.77 H 0.550-1.02 mg/dL Glomerular Filtration Rate Calc 37 >90 mL/min BUN/Creatinine Ratio 18.6 10.0-20.0 Serum Glucose 140 H 74-106 mg/dL Lactic Acid Level 1.5 0.4-2.0 mmol/L Calcium Level 9.6 8.7-10.4 mg/dL Magnesium Level 2.0 1.6-2.6 mg/dL Total Bilirubin 1.1 H 0.2-1.0 mg/dL Aspartate Amino Transferase (AST) 101 H 13-40 U/L Alanine Aminotransferase (ALT) 41 H 7-40 U/L Alkaline Phosphatase 80 46-116 U/L Total Protein 8.2 5.7-8.2 g/dL Albumin 5.1 H 3.2-4.8 g/dL Thyroid Stimulating Hormone (TSH) 8.03 H 0.55-4.78 uIU/mL Current Medications Medications (Trade) Dose Ordered Sig/Nikita Route Start Time Stop Time Status Last Admin Sodium Chloride 1,000 ml @ 1,000 mls/hr Q1H ONCE IV 02/05/25 00:30 02/05/25 01:29 DC 02/05/25 02:56 Sodium Chloride 1,000 ml @ 1,000 mls/hr Q1H ONCE IV 02/05/25 00:30 02/05/25 01:29 DC 02/05/25 00:47 Sodium Chloride 1,000 ml @ 130 mls/hr Q7H42M ONCE IV 02/05/25 00:30 02/05/25 08:11 02/05/25 03:21 Piperacillin Sod/ Tazobactam Sod 100 ml @ 100 mls/hr ONCE ONCE IV 02/05/25 03:00 02/05/25 03:59 DC 02/05/25 04:06 Vancomycin HCl 250 ml @ 250 mls/hr ONCE ONCE IV 02/05/25 03:00 02/05/25 03:59 DC 02/05/25 03:[address] [address] Ph: [phone] DIAGNOSTIC IMAGING Diagnostic Imaging Report : [id number] Signed PATIENT: PAUL LAZCANO ACCT: [id number] UNIT: [id number] : 1985 LOC: ER ROOM / BED: / AGE / SEX: 39 / F ADM STATUS: REG ER SERVICE 001 ORDERING PHYSICIAN: GUERLINE ANGELA MD PROCEDURE(s): CXR1 - CHEST XRAY 1 VIEW REASON: Suspected Sepsis ORDER NUMBER(s): [id number], ACCESSION NUMBER(s): [id number] EXAM: XY CHEST XRAY 1 VIEW CLINICAL HISTORY: Suspected Sepsis TECHNIQUE: Single AP view of the chest WID: COMPARISON: XY CHEST PORTABLE on DOS: 09/04/24 FINDINGS: Lines and tubes: None Chest: The heart size and pulmonary vasculature is within normal limits. No pleural effusion, pneumothorax, or consolidation. The osseous structures are grossly intact. IMPRESSION: No acute cardiopulmonary abnormality. ATED BY: SMITH FOY MD DICTATED DATE/TIME: 02/05/25 005 SIGNED BY: SMITH FOY MD SIGNED DATE/TIME: 02/05/25 005 CC: Time of 1ST Reevaluation: 00:40 Reevaluation 1ST: Unchanged Patient Education/Counseling: Other (reason for EDOBS) Family Education/Counseling: No Family Present Departure 1 Departure Time of Disposition: 04:08 Impression: Primary Impression: Sepsis Additional Impressions: DAYSI (acute kidney injury) Elevated liver function tests Disposition: ADMITTED INPATIENT Condition: Stable Comments 39-year-old female who presented with tachycardia and hypotension. Sepsis protocol initiated in the emergency department. Patient admitted to hospitalist service for further treatment, evaluation and monitoring. Urinalysis, CT abdomen and pelvis pending. Critical Care Note Critical Care Time?: No Stability Stability form required: No Heart Score Heart Score: Heart Score Response (Comments) Value History N/A 0 EKG N/A 0 Age N/A 0 Risk Factors N/A 0 Troponin N/A 0 Total 0 I personally scribed for GUERLINE ANGELA MD ([email or web address]) on 02/05/25 at 01:25. Electronically submitted by Moe Luevano ([email or web address]). GUERLINE ANGELA MD February 05, 2025 01:25
[2025-02-05 01:28] LABS: Alkaline Phosphatase 80 U/L (46-116); Anion Gap 13 (5-15); BUN/Creatinine Ratio 18.6 (10.0-20.0); Bilirubin, Total 1.1 mg/dL (0.2-1.0); Calcium 9.6 mg/dL (8.7-10.4); Carbon Dioxide 21 mmol/L (20-31); Chloride 102 mmol/L (98-107); Glucose 140 mg/dL (74-106); Potassium 3.4 mmol/L (3.5-5.1); Sodium 136 mmol/L (136-145)
[2025-02-05 01:29] LABS: Alanine Aminotransferase 41 U/L (7-40); Albumin 5.1 g/dL (3.2-4.8); Aspartate Aminotransferase 101 U/L (13-40); Blood Urea Nitrogen 33 mg/dL (9-23); Total Protein 8.2 g/dL (5.7-8.2)
[2025-02-05] MEDS: VANCOMYCIN 1GM/200ML PM 250 ML IV ONE (03:11)
[2025-02-05 03:44] LABS: Rapid Strep A Screen-Throat Negative
[2025-02-05 03:45] LABS: COVID19 ANTIGEN SOFIA FIA NEGATIVE (NEGATIVE); Rapid Influenza A Negative (Negative); Rapid Influenza B Negative (Negative)
[2025-02-05] MEDS: PIPERACILLIN-TAZO 4.5GM 100 ML IV ONE (04:06)
--- NOTE | 2025-02-05 05:30 | DVH ---
EXAM: CT Abdomen and Pelvis Without Intravenous Contrast CLINICAL INDICATION: Elevated liver function tests, sepsis TECHNIQUE: Axial computed tomography images of the abdomen and pelvis without intravenous contrast. This CT exam was performed using one or more of the following dose reduction techniques: automated exposure control, adjustment of the mA and/or kV according to patient size, and/or use of iterative r econstruction technique. CONTRAST: COMPARISON: CT ABD PELVIS WO CONTRAST on DOS: 06/01/21 FINDINGS: ARTIFACTS: Motion artifact. LUNG BASES: Unremarkable. No mass. No consolidation. ABDOMEN: LIVER: Hepatomegaly with fatty infiltration. GALLBLADDER AND BILE DUCTS: Unremarkable. No calcified stones. No ductal dilation. PANCREAS: Unremarkable. No ductal dilation. SPLEEN: Unremarkable. No splenomegaly. ADRENALS: Unremarkable. No mass. KIDNEYS AND URETERS: Unremarkable. No stones within either kidney. No hydronephrosis. STOMACH AND BOWEL: Fecal retention in the colon consistent with constipation. No obstruction. No mucosal thickening. PELVIS: APPENDIX: No findings to suggest acute appendicitis. BLADDER: Unremarkable. No stones. REPRODUCTIVE: Unremarkable as visualized. ABDOMEN and PELVIS: INTRAPERITONEAL SPACE: Unremarkable. No free air. No significant fluid collection. BONES/JOINTS: No acute fracture. No dislocation. SOFT TISSUES: Unremarkable. VASCULATURE: Unremarkable. No abdominal aortic aneurysm. LYMPH NODES: Unremarkable. No enlarged lymph nodes. OTHER FINDINGS: . . . IMPRESSION: 1. Fecal retention in the colon consistent with constipation. 2. No obstructive uropathy. 3. Hepatomegaly with fatty infiltration.
[2025-02-05] MEDS ORDERED: DOCUSATE SOD 100 MG CAP PO PRN (07:45)
[2025-02-05] MEDS ORDERED: POTASSIUM CHL 20 Meq TABLET PO ONE (07:45)
[2025-02-05] MEDS ORDERED: VANCOMYCIN PER PHARMACY 0 MG IV SCH ×2 (07:45→08:00)
[2025-02-05] MEDS ORDERED: MORPHINE SULFATE INJ 2 MG/ml SYRG IV PRN (07:45)
[2025-02-05] MEDS ORDERED: NITROGLYCERIN 0.4 MG SL TAB SL PRN (07:45)
[2025-02-05] MEDS ORDERED: ONDANSETRON HCL 4 MG/2 ML VIAL IV PRN (07:45)
[2025-02-05] MEDS ORDERED: SODIUM CHLORIDE 0.9% 1,000 ML IV ONE (07:45)
--- NOTE | 2025-02-05 07:53 | DVHHP2 ---
History of Present Illness Reason for Visit: Low BP History of Present Illness Bria Vizcaino is a 39-year-old female with past medical history of polysubstance abuse, bipolar, CHF, diabetes, depression, hyperlipidemia, schizophrenia, and anxiety who came in with complaints of generalized weakness and had low BP. Patient states she was in a sober living facility and sober for about 11 months, then she relapsed. She states she did have a beer and metha mphetamines about 3 days and she is now homeless. Patient is refusing to give urine sample, she has had multiple bowel movements since CT was completed. Cardiovascular: CHF, hyperipidemia Psych: Anxiety, Bipolar, Depression, Schizophrenia Endocrine: Diabetes Smoke: <1 pack per day ALCOHOL: occassional Drugs: Other (Methamphetamine 3 days ago) Lives: Homeless Domestic Violence: Neg Review of Systems Constitutional: Yes: Weakness, Malaise; No: Fever, Chills, Sweats, Other Eyes: No: Pain, Vision change, Conjunctivae inflammation, Eyelid inflammation, Other, Redness ENT: No: Ear pain, Ear discharge, Nose pain, Nose discharge, Nose congestion, Mouth pain, Mouth swelling, Throat pain, Throat swelling, Other Respiratory: No: Cough, Dry, Shortness of breath, SOB with excertion, Wheezing, Hemoptysis, Pleuritic Pain, Sputum, Wheezing, Other Cardiovascular: No: Chest Pain, Palpitations, Orthopnea, Paroxysmal Noc. Dyspnea, Edema, Lt Headedness, Other Gastrointestinal: No: Nausea, Vomiting, Abdominal Pain, Diarrhea, Constipation, Melena, Hematochezia, Other Genitourinary: No Dysuria, No Frequency, No Incontinence, No Hematuria, No Retention, No Other Musculoskeletal: No: other, neck pain, shoulder pain, arm pain, back pain, hand pain, leg pain, foot pain Skin: No: Rash, Lesions, Jaundice, Bruising, Other Neurological: No: Weakness, Numbness, Incoordination, Change in speech, Confusion, Seizures, Other Allergies: Coded Allergies: NO KNOWN ALLERGIES (Unverified , 09/02/14) Exam Vital Signs Vital Signs Date Time Temp Pulse Resp B/P (MAP) Pulse Ox O2 Delivery O2 Flow Rate FiO2 02/05/25 06:56 89 22 97/54 (68) 95 02/05/25 01:26 97.9 97.9 General Appearance: Oriented X3, Cooperative, Other (drowsy) HEENT: Atraumatic, PERRLA, Mucous membr. moist/pink Respiratory: Clear to auscultation, Normal air movement Cardiovascular: Regular rate, Normal S1, Normal S2, No murmurs Abdominal: Normal bowel sounds, Soft, No tenderness, No hepatospenomegaly Extremities: No clubbing, No cyanosis, No edema, Normal pulses Skin: No rashes, No breakdown, No significant lesion Neuro: Normal gait, Normal speech, Strength at 5/5 X4 ext Psych/Mental Status: Mental status NL, Mood NL Labs/Xrays Labs Test 02/05/25 04:05 02/05/25 01:30 02/05/25 00:58 Range/Units Troponin I High Sensitivity 6 </=34 ng/L Influenza Type A Antigen Negative Negative Influenza Type B Antigen Negative Negative SARS-CoV-2 Antigen (Rapid) Negative NEGATIVE Group A Streptococcus Rapid Negative White Blood Count 12.9 H 4.4-10.8 10^3/uL Red Blood Count 4.91 4.0-5.20 10^6/uL Hemoglobin 14.3 12.2-16.2 g/dL Hematocrit 42.9 36.0-46.0 % Mean Corpuscular Volume 87.4 80.0-100.0 fL Mean Corpuscular Hemoglobin 29.2 28.0-32.0 pg Mean Corpuscular Hemoglobin Concent 33.4 32.0-36.0 g/dL Red Cell Distribution Width 13.9 11.8-14.3 % Platelet Count 363 140-450 10^3/uL Mean Platelet Volume 6.8 L 6.9-10.8 fL Neutrophils (%) (Auto) 62.0 37.0-80.0 % Lymphocytes (%) (Auto) 29.3 10.0-50.0 % Monocytes (%) (Auto) 7.0 0.0-12.0 % Eosinophils (%) (Auto) 0.8 0.0-7.0 % Basophils (%) (Auto) 0.9 0.0-2.0 % Neutrophils # (Auto) 8.0 1.6-8.6 10 ^3/uL Lymphocytes # (Auto) 3.8 0.4-5.4 10 ^3/uL Monocytes # (Auto) 0.9 0-1.3 10 ^3/uL Eosinophils # (Auto) 0.1 0-0.8 10 ^3/uL Basophils # (Auto) 0.1 0-0.2 10 ^3/uL Nucleated Red Blood Cells 0.0 % Sodium Level 136 136-145 mmol/L Potassium Level 3.4 L 3.5-5.1 mmol/L Chloride Level 102 98-107 mmol/L Carbon Dioxide Level 21 20-31 mmol/L Anion Gap 13 5-15 Blood Urea Nitrogen 33 H 9-23 mg/dL Creatinine 1.77 H 0.550-1.02 mg/dL Glomerular Filtration Rate Calc 37 >90 mL/min BUN/Creatinine Ratio 18.6 10.0-20.0 Serum Glucose 140 H 74-106 mg/dL Lactic Acid Level 1.5 0.4-2.0 mmol/L Calcium Level 9.6 8.7-10.4 mg/dL Magnesium Level 2.0 1.6-2.6 mg/dL Total Bilirubin 1.1 H 0.2-1.0 mg/dL Aspartate Amino Transferase (AST) 101 H 13-40 U/L Alanine Aminotransferase (ALT) 41 H 7-40 U/L Alkaline Phosphatase 80 46-116 U/L Total Protein 8.2 5.7-8.2 g/dL Albumin 5.1 H 3.2-4.8 g/dL Thyroid Stimulating Hormone (TSH) 8.03 H 0.55-4.78 uIU/mL EXAM: XY CHEST XRAY 1 VIEW FINDINGS: Lines and tubes: None Chest: The heart size and pulmonary vasculature is within normal limits. No pleural effusion, pneumothorax, or consolidation. The osseous structures are grossly intact. IMPRESSION: No acute cardiopulmonary abnormality. EXAM: CT Abdomen and Pelvis Without Intravenous Contrast FINDINGS: ARTIFACTS: Motion artifact. LUNG BASES: Unremarkable. No mass. No consolidation. ABDOMEN: LIVER: Hepatomegaly with fatty infiltration. GALLBLADDER AND BILE DUCTS: Unremarkable. No calcified stones. No ductal dilation. PANCREAS: Unremarkable. No ductal dilation. SPLEEN: Unremarkable. No splenomegaly. ADRENALS: Unremarkable. No mass. KIDNEYS AND URETERS: Unremarkable. No stones within either kidney. No hydronephrosis. STOMACH AND BOWEL: Fecal retention in the colon consistent with constipation. No obstruction. No mucosal thickening. PELVIS: APPENDIX: No findings to suggest acute appendicitis. BLADDER: Unremarkable. No stones. REPRODUCTIVE: Unremarkable as visualized. ABDOMEN and PELVIS: INTRAPERITONEAL SPACE: Unremarkable. No free air. No significant fluid collection. BONES/JOINTS: No acute fracture. No dislocation. SOFT TISSUES: Unremarkable. VASCULATURE: Unremarkable. No abdominal aortic aneurysm. LYMPH NODES: Unremarkable. No enlarged lymph nodes. OTHER FINDINGS: . . . IMPRESSION: 1. Fecal retention in the colon consistent with constipation. 2. No obstructive uropathy. 3. Hepatomegaly with fatty infiltration. Assessment/Plan Assessment/Plan Assessment: Dehydration, Constipation, Acute kidney injury, Hypotension, SIRS, Hypokalemia, Hyperglycemia, Transaminitis, Bipolar, Schizophrenia, Diabetes, Hypothyroidism Plan: Admit to [facility], IV hydration, IV antibiotics, Blood cultures, UA, Urine culture, Social Service, Home medications reconciled, Plan discussed with: Patient My Orders Orders - CASH CANSECO Procedure Category Date Status Time Admit ADMIT 02/05/25 Verified 07:34 Code Status CODE 02/05/25 Verified 07:34 2 Gm Sodium Diet DIET 02/05/25 Verified Breakfast Ondansetron Hcl PHA 02/05/25 Verified (Zofran) 07:45 Docusate Sodium [facility] 02/05/25 Verified Capsule (Colace 07:45 Fall Risk Precautions [facility] 02/05/[address] 07:34 Complete Blood Count LAB 02/06/25 Verified 04:00 Comprehensive LAB 02/06/25 Verified Metabolic Panel 04:00 Condition: Critical [facility] 02/05/25 Verified 07:34 Acetaminophen Tablet PHA 02/05/25 Verified (Tylenol Tablet) 07:45 Nitroglycerin [facility] 02/05/25 Verified Sublingual (Ntrostat 07:45 Morphine Sulfate PHA 02/05/25 Verified Injection 07:45 Stat Ekg For Chest [facility] 02/05/25 Verified Pain 07:34 Notify Md Of Changes [facility] 02/05/25 Verified From Base 07:34 Event Decorator For [facility] 02/05/25 Verified 24 Hours 07:34 Emergency [address]rhythmia [facility] 02/05/25 Verified Protocol 07:34 Rhythm Strips Once [facility] 02/05/25 Verified Every Shift 07:34 Oxygen By Nasal RT 02/05/25 Verified Cannula 07:34 Date of Service: February 05, 2025 Billing Provider: CASH CANSECO Common Visit Codes: [id number] INP/OBS CARE (MOD) CASH CANSECO February 05, 2025 07:53
[2025-02-05] MEDS ORDERED: HYDR50TA32 PO (07:57)
[2025-02-05] MEDS ORDERED: TRAZ-227 PO (07:57)
[2025-02-05] MEDS ORDERED: LEVO112T4 PO (07:57)
[2025-02-05] MEDS ORDERED: VARE1TAB32 PO (07:57)
[2025-02-05] MEDS ORDERED: SERT-206 PO (07:57)
[2025-02-05] MEDS ORDERED: LISI10TA34 PO (07:57)
[2025-02-05] MEDS ORDERED: ATOR10TA PO (07:58)
[2025-02-05] MEDS ORDERED: DEXTROSE (50%) 50ML SYRG IV PRN (08:00)
[2025-02-05] MEDS: POTASSIUM CHL 20 Meq TABLET PO ONE (08:33)
[2025-02-05] MEDS: LEVOTHYROXINE SODIUM 112 MCG TAB PO SCH (08:33)
[2025-02-05 08:52] LABS: Free T4 (Free Thyroxine) 1.32 ng/dL (0.89-1.76)
[2025-02-05 08:53] LABS: Free T3 3.08 pg/mL (2.3-4.2)
[2025-02-05] MEDS ORDERED: cefTRIAXone 1GM/50ML D5W 50 ML IV SCH (09:00)
[2025-02-05] MEDS: cefTRIAXone 1GM/50ML D5W 50 ML IV SCH (09:13)
[2025-02-05] MEDS: SERTRALINE HCL 50 MG TAB PO SCH (10:40)
[2025-02-05] MEDS: ACCU-CHEK COMFORT CURVE STRIP VI SCH (12:10)
[2025-02-05] MEDS: InsuLIN REG 1unit/0.01ml Soln (100units/ml) SC SCH ×2 (12:10→22:00)
[2025-02-05] MEDS: SODIUM CHLORIDE 0.9% 1,000 ML IV SCH (16:15)
[2025-02-05] MEDS: VANCOMYCIN 1GM/200ML PM 200 ML IV SCH (17:30)
[2025-02-05 20:00] VITALS: PULSE 70
[2025-02-05] MEDS: traZODone HCL 50 MG TAB PO SCH (22:00)
[2025-02-05] MEDS: ATORVASTATIN 20 MG TAB PO SCH (22:24)
[2025-02-06] VITALS (9 sets, daily range): BP systolic 97–124; BP diastolic 54–82; PULSE 73–98; RESP 16–20; TEMP 97.4–98.2; O2SAT 91–100
[2025-02-06] MEDS ORDERED: ALBUAER3 IN (01:30)
[2025-02-06] MEDS ORDERED: [UNRECOGNIZED DRUG - CODE] PO (01:30)
[2025-02-06] MEDS ORDERED: DIPH25CA66 PO (01:30)
[2025-02-06] MEDS ORDERED: SERT-289 PO (01:30)
[2025-02-06] MEDS ORDERED: ACET-1304 PO (01:30)
[2025-02-06 06:52] LABS: Basophils # (auto) 0 10 ^3/uL (0-0.2); Basophils % (auto) 0.1 % (0.0-2.0); Eosinophils # (auto) 0.3 10 ^3/uL (0-0.8); Eosinophils % (auto) 3.9 % (0.0-7.0); Hematocrit 39.7 % (36.0-46.0); Hemoglobin 13.4 g/dL (12.2-16.2); Lymphocytes # (auto) 1.6 10 ^3/uL (0.4-5.4); Lymphocytes % (auto) 22.3 % (10.0-50.0); Mean Corpuscular Hemoglobin 29.7 pg (28.0-32.0); Mean Corpuscular Hgb Conc. 33.7 g/dL (32.0-36.0); Mean Corpuscular Volume 88.2 fL (80.0-100.0); Monocytes # (auto) 0.8 10 ^3/uL (0-1.3); Monocytes % (auto) 10.7 % (0.0-12.0); Neutrophils # (auto) 4.4 10 ^3/uL (1.6-8.6); Platelet Count (auto) 278 10^3/uL (140-450); Red Blood Cells 4.51 10^6/uL (4.0-5.20)
[2025-02-06 07:10] LABS: Alanine Aminotransferase 39 U/L (7-40); Alkaline Phosphatase 71 U/L (46-116); Anion Gap 7 (5-15); Aspartate Aminotransferase 55 U/L (13-40); BUN/Creatinine Ratio 19.7 (10.0-20.0); Bilirubin, Total 0.6 mg/dL (0.2-1.0); Blood Urea Nitrogen 13 mg/dL (9-23); Calcium 8.7 mg/dL (8.7-10.4); Carbon Dioxide 25 mmol/L (20-31); Chloride 108 mmol/L (98-107); Glucose 103 mg/dL (74-106); Sodium 140 mmol/L (136-145); Total Protein 6.7 g/dL (5.7-8.2)
[2025-02-06 10:10] LABS: Hepatitis B Surface Antigen Negative (Negative)
[2025-02-06 10:29] LABS: Hepatitis C Antibody Negative (Negative)
[2025-02-06 12:32] LABS: Urine Bacteria FEW /hpf (None Seen); Urine Blood Negative /uL (Negative); Urine Clarity Clear (Clear); Urine Color Light-Yellow (Yellow); Urine Mucus FEW (None Seen); Urine Protein, UAD Negative (Negative); Urine Specific Gravity 1.025 (1.001-1.035); Urine Squamous Epithelial Cell FEW /hpf (<5); Urine Urobilinogen Normal (Negative); Urine WBC 3 /HPF (0-5)
[2025-02-06 12:43] LABS: Amphetamine Screen, Urine Pos (NEGATIVE); Benzodiazephine Screen, Urine Neg (NEGATIVE)
[2025-02-06 12:44] LABS: Barbiturate Scree,Urine Neg (NEGATIVE); Cannabinoid Screen, Urine Neg (NEGATIVE); Cocaine Screen, Urine Neg (NEGATIVE); Opiate Scree,Urine Neg (NEGATIVE); Phencyclidine Screen, Urine Neg (NEGATIVE)
[2025-02-06] MEDS: ACETAMINOPHEN 325 MG TAB PO PRN (15:02)
--- NOTE | 2025-02-06 18:44 | DVHPN2 ---
Subjective no suicide ideation Changes from previous H/P or p: No Changes Eyes: No Pain, No Vision change, No Conjunctivae inflammation, No Eyelid inflammation, No Other, No Redness ENT: No Ear pain, No Ear discharge, No Nose pain, No Nose discharge, No Nose congestion, No Mouth pain, No Mouth swelling, No Throat pain, No Throat swelling, No Other Cardiovascular: No Chest Pain, No Palpitations, No Orthopnea, No Paroxysmal Noc. Dyspnea, No Edema, No Lt Headedness, No Other Respiratory: No Cough, No Dry, No Shortness of breath, No SOB with excertion, No Wheezing, No Hemoptysis, No Pleuritic Pain, No Sputum, No Other Gastrointestinal: No Nausea, No Vomiting, No Abdominal Pain, No Diarrhea, No Constipation, No Melena, No Hematochezia, No Other Genitourinary: No Dysuria, No Frequency, No Incontinence, No Hematuria, No Retention, No Other Musculoskeletal: No other, No neck pain, No shoulder pain, No arm pain, No back pain, No hand pain, No leg pain, No foot pain Skin: No Rash, No Lesions, No Jaundice, No Bruising, No Other Objective Vitals Vital Signs Date Time Temp Pulse Resp B/P (MAP) Pulse Ox O2 Delivery O2 Flow Rate FiO2 02/06/25 17:01 97.7 90 20 97/54 (68) 100 97.7 02/06/25 08:00 Room Air* 0 21 Intake/Output Intake and Output 02/06/25 07:00 Intake Total 1850 ml Balance 1850 ml Intake Oral 150 ml IV Total 1700 ml General Appearance: Alert, Oriented X3 Lungs: Clear to auscultation Cardiovascular: Regular rate, Normal S1, Normal S2 Abdomen: Normal bowel sounds Medications Current Medications Medications Dose Ordered Sig/Nikita Route Start Time Stop Time Status Last Admin Dose Admin Ondansetron HCl 4 mg Q4HP PRN IV 02/05/25 07:45 Docusate Sodium 100 mg BIDPRN PRN PO 02/05/25 07:45 Acetaminophen 650 mg Q6HP PRN PO 02/05/25 07:45 02/06/25 15:02 650 MG Nitroglycerin 0.4 mg Q5MINP PRN SL 02/05/25 07:45 Morphine Sulfate 2 mg Q30M PRN IV 02/05/25 07:45 Vancomycin HCl 0 ml @ 0 mls/hr UD IV 02/05/25 08:00 Ceftriaxone Sodium 50 ml @ 100 mls/hr DAILY@09 IV 02/05/25 09:00 02/06/25 08:22 100 MLS/HR Diagnostic Test (Pha) 1 strip ACHS 02/05/25 11:30 02/06/25 11:35 1 STRIP Insulin Human Regular HS SC 02/05/25 22:00 Insulin Human Regular AC SC 02/05/25 11:30 Dextrose 50 ml UD PRN IV 02/05/25 08:00 Levothyroxine Sodium 112 mcg QAM PO 02/05/25 08:06 02/06/25 06:19 112 MCG Sertraline HCl 50 mg DAILY PO 02/05/25 10:00 02/06/25 08:12 50 MG Trazodone HCl 50 mg HS PO 02/05/25 22:00 02/05/25 22:00 50 MG Atorvastatin Calcium 10 mg HS PO 02/05/25 22:00 02/05/25 22:24 10 MG Hydroxyzine Pamoate 50 mg BIDPRN PRN PO 02/05/25 08:15 Patient Own Medication 1 mg BIDPC PO 02/05/25 09:00 02/06/25 18:17 1 MG Sodium Chloride 1,000 ml @ 100 mls/hr Q10H IV 02/05/25 16:15 02/06/25 15:08 100 MLS/HR Vancomycin HCl 200 ml @ 200 mls/hr Q8H IV 02/06/25 22:00 Laboratory Results Laboratory Tests 02/06/25 06:03 Chemistry Test 02/06/25 06:03 Albumin 4.0 g/dL (3.2-4.8) Calcium Level 8.7 mg/dL (8.7-10.4) Total Protein 6.7 g/dL (5.7-8.2) LFT Test 02/06/25 06:03 Alanine Aminotransferase (ALT) 39 U/L (7-40) Alkaline Phosphatase 71 U/L (46-116) Aspartate Amino Transferase (AST) 55 U/L (13-40) H Total Bilirubin 0.6 mg/dL (0.2-1.0) Urinalysis Test 02/06/25 12:18 Urine Color Light-yellow (Yellow) Urine Clarity Clear (Clear) Urine pH 6.0 (5.0-9.0) Urine Specific [place] 1.025 (1.001-1.035) Urine Protein Negative (Negative) Urine Ketones Negative (Negative) Urine Blood Negative /uL (Negative) Urine Nitrite Negative (Negative) Urine Bilirubin Negative (Negative) Urine Urobilinogen Normal mg/dL (Negative) Urine Leukocyte Esterase Trace /uL (Negative) Urine RBC 4 /hpf (0 - 4) Urine Microscopic WBC 3 /HPF (0-5) Urine Squamous Epithelial Cells Few /hpf (<5) Urine Bacteria Few /hpf (None Seen) H Urine Mucus Few (None Seen) Urine Glucose Normal mg/dL (Normal) Urine Test Negative (Negative) Microbiology Microbiology Date/Time Source Procedure Growth Status 02/06/25 01:55 Nose MRSA Screen - Final Complete 02/05/25 01:30 Throat Nose/Throat Culture - Preliminary Resulted 02/05/25 00:58 Blood Blood Culture - Preliminary NO GROWTH AFTER 24 HOURS OF INCUBATION. Resulted Assessment/Plan Assessment/Plan Dehydration, Constipation, Acute kidney injury, Hypotension, SIRS, Hypokalemia, Hyperglycemia, Transaminitis, Bipolar, Schizophrenia, Diabetes, Hypothyroidism Creat improved to normal needs psychiatry eval Plan discussed with: Patient My Orders Orders - RENETTA CASTAÑEDA MD Procedure Category Date Status Time Cssrs Frequent TIFFANI 02/06/25 In Process Screener (Daily 01:20 Patient & Room / TIFFANI 02/06/25 In Process Environmental 01:20 * Bar Host/Hostess CONS 02/06/25 Transmitted Consult 01:20 Soc Telemed Psych CONS 02/06/25 Transmitted Consult 12:07 Date of Service: February 06, 2025 Billing Provider: RENETTA CASTAÑEDA MD Common Visit Codes: [id number] INP/OBS CARE(HIGH) RENETTA CASTAÑEDA MD February 06, 2025 18:44
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
[2025-02-06] MEDS: VANCOMYCIN 1GM/200ML PM 200 ML IV SCH (21:16)
[2025-02-07] VITALS (9 sets, daily range): BP systolic 108–126; BP diastolic 72–86; PULSE 69–86; RESP 17–20; TEMP 97.8–98.1; O2SAT 97–99
[2025-02-07 06:14] LABS: Basophils # (auto) 0 10 ^3/uL (0-0.2); Basophils % (auto) 0.3 % (0.0-2.0); Eosinophils # (auto) 0.2 10 ^3/uL (0-0.8); Eosinophils % (auto) 4.6 % (0.0-7.0); Hematocrit 38.9 % (36.0-46.0); Hemoglobin 12.9 g/dL (12.2-16.2); Lymphocytes # (auto) 2.2 10 ^3/uL (0.4-5.4); Lymphocytes % (auto) 42.3 % (10.0-50.0); Mean Corpuscular Hemoglobin 29.3 pg (28.0-32.0); Mean Corpuscular Hgb Conc. 33.2 g/dL (32.0-36.0); Mean Corpuscular Volume 88.3 fL (80.0-100.0); Monocytes # (auto) 0.8 10 ^3/uL (0-1.3); Monocytes % (auto) 15.6 % (0.0-12.0); Neutrophils # (auto) 1.9 10 ^3/uL (1.6-8.6); Neutrophils % (auto) 37.2 % (37.0-80.0); Platelet Count (auto) 271 10^3/uL (140-450); Red Blood Cells 4.41 10^6/uL (4.0-5.20); Red Cell Distribution Width 13.9 % (11.8-14.3); White Blood Cell 5.2 10^3/uL (4.4-10.8)
[2025-02-07] MEDS ORDERED: AUG875T PO (13:48)
--- NOTE | 2025-02-07 18:20 | DVHPN2 ---
Subjective no suicide ideation Changes from previous H/P or p: No Changes Eyes: No Pain, No Vision change, No Conjunctivae inflammation, No Eyelid inflammation, No Other, No Redness ENT: No Ear pain, No Ear discharge, No Nose pain, No Nose discharge, No Nose congestion, No Mouth pain, No Mouth swelling, No Throat pain, No Throat swelling, No Other Cardiovascular: No Chest Pain, No Palpitations, No Orthopnea, No Paroxysmal Noc. Dyspnea, No Edema, No Lt Headedness, No Other Respiratory: No Cough, No Dry, No Shortness of breath, No SOB with excertion, No Wheezing, No Hemoptysis, No Pleuritic Pain, No Sputum, No Other Gastrointestinal: No Nausea, No Vomiting, No Abdominal Pain, No Diarrhea, No Constipation, No Melena, No Hematochezia, No Other Genitourinary: No Dysuria, No Frequency, No Incontinence, No Hematuria, No Retention, No Other Musculoskeletal: No other, No neck pain, No shoulder pain, No arm pain, No back pain, No hand pain, No leg pain, No foot pain Skin: No Rash, No Lesions, No Jaundice, No Bruising, No Other Objective Vitals Vital Signs Date Time Temp Pulse Resp B/P (MAP) Pulse Ox O2 Delivery O2 Flow Rate FiO2 02/07/25 13:00 98.1 84 20 114/74 (87) 99 98.1 02/07/25 07:53 Room Air* 0 21 Intake/Output Intake and Output 02/07/25 07:00 Intake Total 3690 ml Output Total 950 ml Balance 2740 ml Intake Oral 1540 ml IV Total 2150 ml Output Urine Total 950 ml # Voids 2 # Bowel Movements 5 General Appearance: Alert, Oriented X3 Lungs: Clear to auscultation Cardiovascular: Regular rate, Normal S1, Normal S2 Abdomen: Normal bowel sounds Medications Current Medications Medications Dose Ordered Sig/Nikita Route Start Time Stop Time Status Last Admin Dose Admin Ondansetron HCl 4 mg Q4HP PRN IV 02/05/25 07:45 Docusate Sodium 100 mg BIDPRN PRN PO 02/05/25 07:45 Acetaminophen 650 mg Q6HP PRN PO 02/05/25 07:45 02/06/25 15:02 650 MG Nitroglycerin 0.4 mg Q5MINP PRN SL 02/05/25 07:45 Morphine Sulfate 2 mg Q30M PRN IV 02/05/25 07:45 Vancomycin HCl 0 ml @ 0 mls/hr UD IV 02/05/25 08:00 Ceftriaxone Sodium 50 ml @ 100 mls/hr DAILY@09 IV 02/05/25 09:00 02/07/25 08:48 100 MLS/HR Diagnostic Test (Pha) 1 strip ACHS 02/05/25 11:30 02/07/25 11:11 1 STRIP Insulin Human Regular HS SC 02/05/25 22:00 Insulin Human Regular AC SC 02/05/25 11:30 Dextrose 50 ml UD PRN IV 02/05/25 08:00 Levothyroxine Sodium 112 mcg QAM PO 02/05/25 08:06 02/07/25 06:38 112 MCG Sertraline HCl 50 mg DAILY PO 02/05/25 10:00 02/07/25 08:48 50 MG Trazodone HCl 50 mg HS PO 02/05/25 22:00 02/06/25 21:12 50 MG Atorvastatin Calcium 10 mg HS PO 02/05/25 22:00 02/06/25 21:12 10 MG Hydroxyzine Pamoate 50 mg BIDPRN PRN PO 02/05/25 08:15 Patient Own Medication 1 mg BIDPC PO 02/05/25 09:00 02/07/25 08:49 1 MG Sodium Chloride 1,000 ml @ 100 mls/hr Q10H IV 02/05/25 16:15 02/07/25 11:15 100 MLS/HR Vancomycin HCl 200 ml @ 200 mls/hr Q8H IV 02/06/25 22:00 02/07/25 13:53 200 MLS/HR Laboratory Results Laboratory Tests 02/06/25 06:03 02/07/25 05:40 Urinalysis Test 02/06/25 12:18 Urine Color Light-yellow (Yellow) Urine Clarity Clear (Clear) Urine pH 6.0 (5.0-9.0) Urine Specific [place] 1.025 (1.001-1.035) Urine Protein Negative (Negative) Urine Ketones Negative (Negative) Urine Blood Negative /uL (Negative) Urine Nitrite Negative (Negative) Urine Bilirubin Negative (Negative) Urine Urobilinogen Normal mg/dL (Negative) Urine Leukocyte Esterase Trace /uL (Negative) Urine RBC 4 /hpf (0 - 4) Urine Microscopic WBC 3 /HPF (0-5) Urine Squamous Epithelial Cells Few /hpf (<5) Urine Bacteria Few /hpf (None Seen) H Urine Mucus Few (None Seen) Urine Glucose Normal mg/dL (Normal) Urine Test Negative (Negative) Microbiology Microbiology Date/Time Source Procedure Growth Status 02/06/25 01:55 Nose MRSA Screen - Final Complete 02/05/25 01:30 Throat Nose/Throat Culture - Final Complete 02/05/25 00:58 Blood Blood Culture - Preliminary NO GROWTH AFTER 48 HOURS OF INCUBATION. Resulted Assessment/Plan Assessment/Plan Dehydration, Constipation, Acute kidney injury, Hypotension, SIRS, Hypokalemia, Hyperglycemia, Transaminitis, Bipolar, Schizophrenia, Diabetes, Hypothyroidism Creat improved to normal needs psychiatry eval>inpatient psychiatry Pending placement Plan discussed with: Patient My Orders Orders - RENETTA CASTAÑEDA MD Procedure Category Date Status Time Discharge DISCHARGE 02/07/25 Transmitted 13:37 Date of Service: February 07, 2025 Billing Provider: RENETTA CASTAÑEDA MD Common Visit Codes: [id number] INP/OBS CARE(HIGH) RENETTA CASTAÑEDA MD February 07, 2025 18:20
[2025-02-08] VITALS (8 sets, daily range): BP systolic 107–122; BP diastolic 65–88; PULSE 71–83; RESP 18–20; TEMP 97.5–98; O2SAT 96–98
[2025-02-08] MEDS: VANCOMYCIN 1.25GM/250ML 250 ML IV SCH (05:02)
[2025-02-08 08:12] LABS: Basophils # (auto) 0 10 ^3/uL (0-0.2); Basophils % (auto) 0.3 % (0.0-2.0); Eosinophils # (auto) 0.2 10 ^3/uL (0-0.8); Eosinophils % (auto) 2.8 % (0.0-7.0); Hematocrit 41.5 % (36.0-46.0); Hemoglobin 13.9 g/dL (12.2-16.2); Lymphocytes # (auto) 3.2 10 ^3/uL (0.4-5.4); Lymphocytes % (auto) 38.4 % (10.0-50.0); Mean Corpuscular Hemoglobin 29.3 pg (28.0-32.0); Mean Corpuscular Hgb Conc. 33.4 g/dL (32.0-36.0); Mean Corpuscular Volume 87.7 fL (80.0-100.0); Monocytes % (auto) 11.5 % (0.0-12.0); Neutrophils # (auto) 3.9 10 ^3/uL (1.6-8.6); Platelet Count (auto) 327 10^3/uL (140-450); Red Blood Cells 4.73 10^6/uL (4.0-5.20); White Blood Cell 8.3 10^3/uL (4.4-10.8)
--- NOTE | 2025-02-08 17:15 | DVHPN2 ---
Subjective no suicide ideation Changes from previous H/P or p: No Changes Eyes: No Pain, No Vision change, No Conjunctivae inflammation, No Eyelid inflammation, No Other, No Redness ENT: No Ear pain, No Ear discharge, No Nose pain, No Nose discharge, No Nose congestion, No Mouth pain, No Mouth swelling, No Throat pain, No Throat swelling, No Other Cardiovascular: No Chest Pain, No Palpitations, No Orthopnea, No Paroxysmal Noc. Dyspnea, No Edema, No Lt Headedness, No Other Respiratory: No Cough, No Dry, No Shortness of breath, No SOB with excertion, No Wheezing, No Hemoptysis, No Pleuritic Pain, No Sputum, No Other Gastrointestinal: No Nausea, No Vomiting, No Abdominal Pain, No Diarrhea, No Constipation, No Melena, No Hematochezia, No Other Genitourinary: No Dysuria, No Frequency, No Incontinence, No Hematuria, No Retention, No Other Musculoskeletal: No other, No neck pain, No shoulder pain, No arm pain, No back pain, No hand pain, No leg pain, No foot pain Skin: No Rash, No Lesions, No Jaundice, No Bruising, No Other Objective Vitals Vital Signs Date Time Temp Pulse Resp B/P (MAP) Pulse Ox O2 Delivery O2 Flow Rate FiO2 02/08/25 13:15 98.0 73 19 112/82 (92) 97 98.0 02/08/25 08:00 Room Air* 0 21 Intake/Output Intake and Output 02/08/25 07:00 Intake Total 4300 ml Balance 4300 ml Intake Oral 2300 ml IV Total 2000 ml # Voids 6 # Bowel Movements 2 General Appearance: Alert, Oriented X3 Lungs: Clear to auscultation Cardiovascular: Regular rate, Normal S1, Normal S2 Abdomen: Normal bowel sounds Medications Current Medications Medications Dose Ordered Sig/Nikita Route Start Time Stop Time Status Last Admin Dose Admin Ondansetron HCl 4 mg Q4HP PRN IV 02/05/25 07:45 Docusate Sodium 100 mg BIDPRN PRN PO 02/05/25 07:45 Acetaminophen 650 mg Q6HP PRN PO 02/05/25 07:45 02/08/25 07:30 650 MG Nitroglycerin 0.4 mg Q5MINP PRN SL 02/05/25 07:45 Morphine Sulfate 2 mg Q30M PRN IV 02/05/25 07:45 Vancomycin HCl 0 ml @ 0 mls/hr UD IV 02/05/25 08:00 Ceftriaxone Sodium 50 ml @ 100 mls/hr DAILY@09 IV 02/05/25 09:00 02/08/25 10:30 100 MLS/HR Diagnostic Test (Pha) 1 strip ACHS 02/05/25 11:30 02/08/25 11:29 1 STRIP Insulin Human Regular HS SC 02/05/25 22:00 Insulin Human Regular AC SC 02/05/25 11:30 Dextrose 50 ml UD PRN IV 02/05/25 08:00 Levothyroxine Sodium 112 mcg QAM PO 02/05/25 08:06 02/08/25 06:52 112 MCG Sertraline HCl 50 mg DAILY PO 02/05/25 10:00 02/08/25 10:28 50 MG Trazodone HCl 50 mg HS PO 02/05/25 22:00 02/07/25 21:20 50 MG Atorvastatin Calcium 10 mg HS PO 02/05/25 22:00 02/07/25 21:19 10 MG Hydroxyzine Pamoate 50 mg BIDPRN PRN PO 02/05/25 08:15 Patient Own Medication 1 mg BIDPC PO 02/05/25 09:00 02/08/25 10:28 1 MG Sodium Chloride 1,000 ml @ 100 mls/hr Q10H IV 02/05/25 16:15 02/08/25 05:02 100 MLS/HR Vancomycin HCl 250 ml @ 200 mls/hr Q8H IV 02/08/25 06:00 02/08/25 15:44 200 MLS/HR Laboratory Results Laboratory Tests 02/06/25 06:03 02/08/25 05:40 02/08/25 07:53 Urinalysis Test 02/06/25 12:18 Urine Color Light-yellow (Yellow) Urine Clarity Clear (Clear) Urine pH 6.0 (5.0-9.0) Urine Specific [place] 1.025 (1.001-1.035) Urine Protein Negative (Negative) Urine Ketones Negative (Negative) Urine Blood Negative /uL (Negative) Urine Nitrite Negative (Negative) Urine Bilirubin Negative (Negative) Urine Urobilinogen Normal mg/dL (Negative) Urine Leukocyte Esterase Trace /uL (Negative) Urine RBC 4 /hpf (0 - 4) Urine Microscopic WBC 3 /HPF (0-5) Urine Squamous Epithelial Cells Few /hpf (<5) Urine Bacteria Few /hpf (None Seen) H Urine Mucus Few (None Seen) Urine Glucose Normal mg/dL (Normal) Urine Test Negative (Negative) Microbiology Microbiology Date/Time Source Procedure Growth Status 02/06/25 01:55 Nose MRSA Screen - Final Complete 02/05/25 01:30 Throat Nose/Throat Culture - Final Complete 02/05/25 00:58 Blood Blood Culture - Preliminary NO GROWTH AFTER 72 HOURS OF INCUBATION. Resulted Assessment/Plan Assessment/Plan Dehydration, Constipation, Acute kidney injury, Hypotension, SIRS, Hypokalemia, Hyperglycemia, Transaminitis, Bipolar, Schizophrenia, Diabetes, Hypothyroidism Creat improved to normal needs psychiatry eval>inpatient psychiatry Pending placement Plan discussed with: Patient My Orders Orders - RENETTA CASTAÑEDA MD Procedure Category Date Status Time * Operations Team Leader CONS 02/08/25 Transmitted Consult Date of Service: February 08, 2025 Billing Provider: RENETTA CASTAÑEDA MD Common Visit Codes: [id number] INP/OBS CARE(HIGH) RENETTA CASTAÑEDA MD February 08, 2025 17:15
--- NOTE | 2025-02-08 17:16 | MEDREC ---
[facility] Intervention Section I [facility] Intervention: Deescalate AB based on CS (PATIENT IS AFEBRILE AND WBC IS WITHIN NORMAL LIMIT. MRSA SCREEN AND THROAT CULTURE ARE NEGATIVE. THE PRELIMINARY BLOOD CULTURE SHOWS NO GROWTH FOR 3 DAYS. PLEASE REVIEW/ DISCONTINUE THE ANTIBIOTICS IF THERE ARE NO MORE CONCERNS FOR INFECTIONS), Review courses of therapy MARGARETTE BENAVIDES February 08, 2025 17:16
[2025-02-09] VITALS (7 sets, daily range): BP systolic 104–114; BP diastolic 71–80; PULSE 73–87; RESP 18–20; TEMP 97.8–98.1; O2SAT 97–99
[2025-02-09] MEDS: VANCOMYCIN 1.25GM/250ML 250 ML IV SCH (00:02)
[2025-02-09] MEDS: VANCOMYCIN 1.75GM/350ML 350 ML IV SCH (12:00)
--- NOTE | 2025-02-09 15:59 | DVHPN2 ---
Subjective no suicide ideation Changes from previous H/P or p: No Changes Eyes: No Pain, No Vision change, No Conjunctivae inflammation, No Eyelid inflammation, No Other, No Redness ENT: No Ear pain, No Ear discharge, No Nose pain, No Nose discharge, No Nose congestion, No Mouth pain, No Mouth swelling, No Throat pain, No Throat swelling, No Other Cardiovascular: No Chest Pain, No Palpitations, No Orthopnea, No Paroxysmal Noc. Dyspnea, No Edema, No Lt Headedness, No Other Respiratory: No Cough, No Dry, No Shortness of breath, No SOB with excertion, No Wheezing, No Hemoptysis, No Pleuritic Pain, No Sputum, No Other Gastrointestinal: No Nausea, No Vomiting, No Abdominal Pain, No Diarrhea, No Constipation, No Melena, No Hematochezia, No Other Genitourinary: No Dysuria, No Frequency, No Incontinence, No Hematuria, No Retention, No Other Musculoskeletal: No other, No neck pain, No shoulder pain, No arm pain, No back pain, No hand pain, No leg pain, No foot pain Skin: No Rash, No Lesions, No Jaundice, No Bruising, No Other Objective Vitals Vital Signs Date Time Temp Pulse Resp B/P (MAP) Pulse Ox O2 Delivery O2 Flow Rate FiO2 02/09/25 08:00 Room Air* 0 21 02/09/25 08:00 84 02/09/25 05:00 97.8 20 112/80 (91) 97 97.8 Intake/Output Intake and Output 02/09/25 07:00 Intake Total 4250 ml Balance 4250 ml Intake Oral 3150 ml IV Total 1100 ml # Voids 6 # Bowel Movements 2 General Appearance: Alert, Oriented X3 Lungs: Clear to auscultation Cardiovascular: Regular rate, Normal S1, Normal S2 Abdomen: Normal bowel sounds Medications Current Medications Medications Dose Ordered Sig/Nikita Route Start Time Stop Time Status Last Admin Dose Admin Ondansetron HCl 4 mg Q4HP PRN IV 02/05/25 07:45 Docusate Sodium 100 mg BIDPRN PRN PO 02/05/25 07:45 Acetaminophen 650 mg Q6HP PRN PO 02/05/25 07:45 02/09/25 09:57 650 MG Nitroglycerin 0.4 mg Q5MINP PRN SL 02/05/25 07:45 Morphine Sulfate 2 mg Q30M PRN IV 02/05/25 07:45 Vancomycin HCl 0 ml @ 0 mls/hr UD IV 02/05/25 08:00 Ceftriaxone Sodium 50 ml @ 100 mls/hr DAILY@09 IV 02/05/25 09:00 02/09/25 09:14 100 MLS/HR Diagnostic Test (Pha) 1 strip ACHS 02/05/25 11:30 02/09/25 11:25 1 STRIP Insulin Human Regular HS SC 02/05/25 22:00 Insulin Human Regular AC SC 02/05/25 11:30 02/09/25 06:32 2 UNITS Dextrose 50 ml UD PRN IV 02/05/25 08:00 Levothyroxine Sodium 112 mcg QAM PO 02/05/25 08:06 02/09/25 06:31 112 MCG Sertraline HCl 50 mg DAILY PO 02/05/25 10:00 02/09/25 09:56 50 MG Trazodone HCl 50 mg HS PO 02/05/25 22:00 02/08/25 20:16 50 MG Atorvastatin Calcium 10 mg HS PO 02/05/25 22:00 02/08/25 20:15 10 MG Hydroxyzine Pamoate 50 mg BIDPRN PRN PO 02/05/25 08:15 Patient Own Medication 1 mg BIDPC PO 02/05/25 09:00 02/09/25 09:17 1 MG Sodium Chloride 1,000 ml @ 100 mls/hr Q10H IV 02/05/25 16:15 02/09/25 10:15 100 MLS/HR Vancomycin HCl 350 ml @ 233.333 mls/hr Q12H IV 02/09/25 12:00 02/09/25 12:00 233.333 MLS/HR Laboratory Results Laboratory Tests 02/06/25 06:03 02/08/25 07:53 02/09/25 05:56 Urinalysis Test 02/06/25 12:18 Urine Color Light-yellow (Yellow) Urine Clarity Clear (Clear) Urine pH 6.0 (5.0-9.0) Urine Specific [place] 1.025 (1.001-1.035) Urine Protein Negative (Negative) Urine Ketones Negative (Negative) Urine Blood Negative /uL (Negative) Urine Nitrite Negative (Negative) Urine Bilirubin Negative (Negative) Urine Urobilinogen Normal mg/dL (Negative) Urine Leukocyte Esterase Trace /uL (Negative) Urine RBC 4 /hpf (0 - 4) Urine Microscopic WBC 3 /HPF (0-5) Urine Squamous Epithelial Cells Few /hpf (<5) Urine Bacteria Few /hpf (None Seen) H Urine Mucus Few (None Seen) Urine Glucose Normal mg/dL (Normal) Urine Test Negative (Negative) Microbiology Microbiology Date/Time Source Procedure Growth Status 02/06/25 01:55 Nose MRSA Screen - Final Complete 02/05/25 01:30 Throat Nose/Throat Culture - Final Complete 02/05/25 00:58 Blood Blood Culture - Preliminary NO GROWTH AFTER 72 HOURS OF INCUBATION. Resulted Assessment/Plan Assessment/Plan Dehydration, Constipation, Acute kidney injury, Hypotension, SIRS, Hypokalemia, Hyperglycemia, Transaminitis, Bipolar, Schizophrenia, Diabetes, Hypothyroidism Creat improved to normal needs psychiatry eval>inpatient psychiatry Pending placement Plan discussed with: Patient Date of Service: February 09, 2025 Billing Provider: RENETTA CASTAÑEDA MD Common Visit Codes: [id number] INP/OBS CARE(HIGH) RENETTA CASTAÑEDA MD February 09, 2025 15:59
[2025-02-10] VITALS (7 sets, daily range): BP systolic 95–123; BP diastolic 40–77; PULSE 69–94; RESP 16–19; TEMP 97.7–98.7; O2SAT 95–98
[2025-02-10 08:52] LABS: Basophils # (auto) 0 10 ^3/uL (0-0.2); Basophils % (auto) 0.4 % (0.0-2.0); Eosinophils # (auto) 0.3 10 ^3/uL (0-0.8); Eosinophils % (auto) 4.6 % (0.0-7.0); Hematocrit 41.4 % (36.0-46.0); Hemoglobin 13.6 g/dL (12.2-16.2); Lymphocytes # (auto) 1.9 10 ^3/uL (0.4-5.4); Lymphocytes % (auto) 25.1 % (10.0-50.0); Mean Corpuscular Hemoglobin 29.4 pg (28.0-32.0); Mean Corpuscular Volume 89.2 fL (80.0-100.0); Monocytes # (auto) 0.9 10 ^3/uL (0-1.3); Monocytes % (auto) 11.9 % (0.0-12.0); Neutrophils # (auto) 4.3 10 ^3/uL (1.6-8.6); Platelet Count (auto) 296 10^3/uL (140-450); Red Blood Cells 4.64 10^6/uL (4.0-5.20); Red Cell Distribution Width 14.3 % (11.8-14.3); White Blood Cell 7.4 10^3/uL (4.4-10.8)
--- NOTE | 2025-02-10 13:57 | DVHPN2 ---
Subjective no suicide ideation Changes from previous H/P or p: No Changes Eyes: No Pain, No Vision change, No Conjunctivae inflammation, No Eyelid inflammation, No Other, No Redness ENT: No Ear pain, No Ear discharge, No Nose pain, No Nose discharge, No Nose congestion, No Mouth pain, No Mouth swelling, No Throat pain, No Throat swelling, No Other Cardiovascular: No Chest Pain, No Palpitations, No Orthopnea, No Paroxysmal Noc. Dyspnea, No Edema, No Lt Headedness, No Other Respiratory: No Cough, No Dry, No Shortness of breath, No SOB with excertion, No Wheezing, No Hemoptysis, No Pleuritic Pain, No Sputum, No Other Gastrointestinal: No Nausea, No Vomiting, No Abdominal Pain, No Diarrhea, No Constipation, No Melena, No Hematochezia, No Other Genitourinary: No Dysuria, No Frequency, No Incontinence, No Hematuria, No Retention, No Other Musculoskeletal: No other, No neck pain, No shoulder pain, No arm pain, No back pain, No hand pain, No leg pain, No foot pain Skin: No Rash, No Lesions, No Jaundice, No Bruising, No Other Objective Vitals Vital Signs Date Time Temp Pulse Resp B/P (MAP) Pulse Ox O2 Delivery O2 Flow Rate FiO2 02/10/25 07:30 Room Air* 0 21 02/10/25 05:00 98.7 83 17 123/77 (92) 95 98.7 Intake/Output Intake and Output 02/10/25 07:00 Intake Total 2620 ml Balance 2620 ml Intake Oral 1870 ml IV Total 750 ml # Voids 6 # Bowel Movements 3 General Appearance: Alert, Oriented X3 Lungs: Clear to auscultation Cardiovascular: Regular rate, Normal S1, Normal S2 Abdomen: Normal bowel sounds Medications Current Medications Medications Dose Ordered Sig/Nikita Route Start Time Stop Time Status Last Admin Dose Admin Ondansetron HCl 4 mg Q4HP PRN IV 02/05/25 07:45 Docusate Sodium 100 mg BIDPRN PRN PO 02/05/25 07:45 Acetaminophen 650 mg Q6HP PRN PO 02/05/25 07:45 02/10/25 09:39 650 MG Nitroglycerin 0.4 mg Q5MINP PRN SL 02/05/25 07:45 Morphine Sulfate 2 mg Q30M PRN IV 02/05/25 07:45 Vancomycin HCl 0 ml @ 0 mls/hr UD IV 02/05/25 08:00 Diagnostic Test (Pha) 1 strip ACHS 02/05/25 11:30 02/10/25 10:53 1 STRIP Insulin Human Regular HS SC 02/05/25 22:00 02/09/25 20:37 2 UNITS Insulin Human Regular AC SC 02/05/25 11:30 02/09/25 06:32 2 UNITS Dextrose 50 ml UD PRN IV 02/05/25 08:00 Levothyroxine Sodium 112 mcg QAM PO 02/05/25 08:06 02/10/25 06:19 112 MCG Sertraline HCl 50 mg DAILY PO 02/05/25 10:00 02/10/25 08:24 50 MG Trazodone HCl 50 mg HS PO 02/05/25 22:00 02/09/25 20:39 50 MG Atorvastatin Calcium 10 mg HS PO 02/05/25 22:00 02/09/25 20:39 10 MG Hydroxyzine Pamoate 50 mg BIDPRN PRN PO 02/05/25 08:15 Patient Own Medication 1 mg BIDPC PO 02/05/25 09:00 02/10/25 08:24 1 MG Sodium Chloride 1,000 ml @ 100 mls/hr Q10H IV 02/05/25 16:15 02/10/25 08:30 100 MLS/HR Vancomycin HCl 350 ml @ 233.333 mls/hr Q12H IV 02/09/25 12:00 02/10/25 11:47 233.333 MLS/HR Laboratory Results Laboratory Tests 02/06/25 06:03 02/10/25 08:06 Urinalysis Test 02/06/25 12:18 Urine Color Light-yellow (Yellow) Urine Clarity Clear (Clear) Urine pH 6.0 (5.0-9.0) Urine Specific [place] 1.025 (1.001-1.035) Urine Protein Negative (Negative) Urine Ketones Negative (Negative) Urine Blood Negative /uL (Negative) Urine Nitrite Negative (Negative) Urine Bilirubin Negative (Negative) Urine Urobilinogen Normal mg/dL (Negative) Urine Leukocyte Esterase Trace /uL (Negative) Urine RBC 4 /hpf (0 - 4) Urine Microscopic WBC 3 /HPF (0-5) Urine Squamous Epithelial Cells Few /hpf (<5) Urine Bacteria Few /hpf (None Seen) H Urine Mucus Few (None Seen) Urine Glucose Normal mg/dL (Normal) Urine Test Negative (Negative) Microbiology Microbiology Date/Time Source Procedure Growth Status 02/06/25 01:55 Nose MRSA Screen - Final Complete 02/05/25 01:30 Throat Nose/Throat Culture - Final Complete 02/05/25 00:58 Blood Blood Culture - Final NO GROWTH AFTER 5 DAYS OF INCUBATION. Complete Assessment/Plan Assessment/Plan Dehydration, Constipation, Acute kidney injury, Hypotension, SIRS, Hypokalemia, Hyperglycemia, Transaminitis, Bipolar, Schizophrenia, Diabetes, Hypothyroidism Creat improved to normal needs psychiatry eval>inpatient psychiatry Pending placement Plan discussed with: Patient My Orders Orders - RENETTA CASTAÑEDA MD Procedure Category Date Status Time *Tele Psych Consult CONS 02/09/25 Transmitted 15:59 Date of Service: February 10, 2025 Billing Provider: RENETTA CASTAÑEDA MD Common Visit Codes: [id number] INP/OBS CARE(HIGH) RENETTA CASTAÑEDA MD February 10, 2025 13:57
--- NOTE | 2025-02-10 16:33 | MEDREC ---
[facility] Intervention Section I [facility] Intervention: Review courses of therapy (PLEASE CONSIDER D/C ANTIBIOTIC IN ABSENCE OF BACTERIAL INFECTION (D/C VANCOMYCIN) ) FRANCESCA HORTA PHARMACIST February 10, 2025 16:33
[2025-02-10] MEDS: hydrOXYzine 25 MG TAB or CAP PO PRN (17:33)
[2025-02-11 01:00] VITALS: BP 97/68; PULSE 85; RESP 12; TEMP 97.6; O2SAT 97
[2025-02-11 05:00] VITALS: BP 94/65; PULSE 89; RESP 12; TEMP 97.5; O2SAT 96
[2025-02-11 07:12] LABS: Basophils # (auto) 0 10 ^3/uL (0-0.2); Basophils % (auto) 0.2 % (0.0-2.0); Eosinophils # (auto) 0.4 10 ^3/uL (0-0.8); Hematocrit 39.8 % (36.0-46.0); Hemoglobin 13.4 g/dL (12.2-16.2); Lymphocytes # (auto) 2.3 10 ^3/uL (0.4-5.4); Lymphocytes % (auto) 31.7 % (10.0-50.0); Mean Corpuscular Hemoglobin 29.6 pg (28.0-32.0); Mean Corpuscular Hgb Conc. 33.7 g/dL (32.0-36.0); Mean Corpuscular Volume 87.9 fL (80.0-100.0); Monocytes # (auto) 0.9 10 ^3/uL (0-1.3); Monocytes % (auto) 12.3 % (0.0-12.0); Neutrophils # (auto) 3.7 10 ^3/uL (1.6-8.6); Neutrophils % (auto) 50.8 % (37.0-80.0); Nucleated Red Blood Cells % 0.1 %; Platelet Count (auto) 288 10^3/uL (140-450); Red Blood Cells 4.53 10^6/uL (4.0-5.20); Red Cell Distribution Width 13.8 % (11.8-14.3); White Blood Cell 7.3 10^3/uL (4.4-10.8)
[2025-02-11 08:30] VITALS: PULSE 77
--- NOTE | 2025-02-11 13:37 | DVHPN2 ---
Reviewed: Care Plan, H&P, Labs, Medications, Previous Orders, Radiology Changes from previous H/P or p: No Changes Eyes: No Pain, No Vision change, No Conjunctivae inflammation, No Eyelid inflammation, No Other, No Redness ENT: No Ear pain, No Ear discharge, No Nose pain, No Nose discharge, No Nose congestion, No Mouth pain, No Mouth swelling, No Throat pain, No Throat swelling, No Other Cardiovascular: No Chest Pain, No Palpitations, No Orthopnea, No Paroxysmal Noc. Dyspnea, No Edema, No Lt Headedness, No Other Respiratory: No Cough, No Dry, No Shortness of breath, No SOB with excertion, No Wheezing, No Hemoptysis, No Pleuritic Pain, No Sputum, No Other Gastrointestinal: No Nausea, No Vomiting, No Abdominal Pain, No Diarrhea, No Constipation, No Melena, No Hematochezia, No Other Genitourinary: No Dysuria, No Frequency, No Incontinence, No Hematuria, No Retention, No Other Musculoskeletal: No other, No neck pain, No shoulder pain, No arm pain, No back pain, No hand pain, No leg pain, No foot pain Skin: No Rash, No Lesions, No Jaundice, No Bruising, No Other Objective Vitals Vital Signs Date Time Temp Pulse Resp B/P (MAP) Pulse Ox O2 Delivery O2 Flow Rate FiO2 02/11/25 08:30 77 02/11/25 05:00 97.5 12 94/65 (75) 96 97.5 02/10/25 20:00 Room Air* 0 21 Intake/Output Intake and Output 02/11/25 07:00 Intake Total 4520 ml Balance 4520 ml Intake Oral 2840 ml IV Total 1680 ml # Voids 8 # Bowel Movements 6 General Appearance: Alert, Oriented X3 Lungs: Clear to auscultation Cardiovascular: Regular rate, Normal S1, Normal S2 Abdomen: Normal bowel sounds Medications Current Medications Medications Dose Ordered Sig/Nikita Route Start Time Stop Time Status Last Admin Dose Admin Ondansetron HCl 4 mg Q4HP PRN IV 02/05/25 07:45 Docusate Sodium 100 mg BIDPRN PRN PO 02/05/25 07:45 Acetaminophen 650 mg Q6HP PRN PO 02/05/25 07:45 02/11/25 11:43 650 MG Nitroglycerin 0.4 mg Q5MINP PRN SL 02/05/25 07:45 Morphine Sulfate 2 mg Q30M PRN IV 02/05/25 07:45 Vancomycin HCl 0 ml @ 0 mls/hr UD IV 02/05/25 08:00 Diagnostic Test (Pha) 1 strip ACHS 02/05/25 11:30 02/11/25 11:30 1 STRIP Insulin Human Regular HS SC 02/05/25 22:00 02/10/25 21:10 2 UNITS Insulin Human Regular AC SC 02/05/25 11:30 02/11/25 11:30 2 UNITS Dextrose 50 ml UD PRN IV 02/05/25 08:00 Levothyroxine Sodium 112 mcg QAM PO 02/05/25 08:06 02/11/25 05:08 112 MCG Sertraline HCl 50 mg DAILY PO 02/05/25 10:00 02/11/25 09:58 50 MG Trazodone HCl 50 mg HS PO 02/05/25 22:00 02/10/25 21:12 50 MG Atorvastatin Calcium 10 mg HS PO 02/05/25 22:00 02/10/25 21:12 10 MG Hydroxyzine Pamoate 50 mg BIDPRN PRN PO 02/05/25 08:15 02/10/25 17:33 50 MG Patient Own Medication 1 mg BIDPC PO 02/05/25 09:00 02/11/25 09:00 1 MG Sodium Chloride 1,000 ml @ 100 mls/hr Q10H IV 02/05/25 16:15 02/10/25 08:30 100 MLS/HR Vancomycin HCl 350 ml @ 233.333 mls/hr Q12H IV 02/09/25 12:00 Hold 02/11/25 00:19 233.333 MLS/HR Laboratory Results Laboratory Tests 02/06/25 06:03 02/11/25 05:52 Urinalysis Test 02/06/25 12:18 Urine Color Light-yellow (Yellow) Urine Clarity Clear (Clear) Urine pH 6.0 (5.0-9.0) Urine Specific [place] 1.025 (1.001-1.035) Urine Protein Negative (Negative) Urine Ketones Negative (Negative) Urine Blood Negative /uL (Negative) Urine Nitrite Negative (Negative) Urine Bilirubin Negative (Negative) Urine Urobilinogen Normal mg/dL (Negative) Urine Leukocyte Esterase Trace /uL (Negative) Urine RBC 4 /hpf (0 - 4) Urine Microscopic WBC 3 /HPF (0-5) Urine Squamous Epithelial Cells Few /hpf (<5) Urine Bacteria Few /hpf (None Seen) H Urine Mucus Few (None Seen) Urine Glucose Normal mg/dL (Normal) Urine Test Negative (Negative) Microbiology Microbiology Date/Time Source Procedure Growth Status 02/06/25 01:55 Nose MRSA Screen - Final Complete 02/05/25 01:30 Throat Nose/Throat Culture - Final Complete 02/05/25 00:58 Blood Blood Culture - Final NO GROWTH AFTER 5 DAYS OF INCUBATION. Complete Labs and/or images reviewed: Labs reviewed by me, Image(s) reviewed by me Assessment/Plan Assessment/Plan Dehydration, Constipation, Acute kidney injury, Hypotension, SIRS, Hypokalemia, Hyperglycemia, Transaminitis, Bipolar, Schizophrenia, Diabetes, Hypothyroidism Suicide ideation, tele psych consult pending Plan discussed with: Patient Date of Service: February 11, 2025 Billing Provider: DIANELYS BYNUM MD Common Visit Codes: [id number] INP/OBS CARE(HIGH) DIANELYS BYNUM MD February 11, 2025 13:37
--- NOTE | 2025-02-11 15:29 | TELE.CONS ---
PSYCHIATRY REASSESSMENT Date: 02/11/25 3122 S: The patient was seen and evaluated at [facility] via telepsychiatry platform. 39 yr old female admitted 02/05 and evaluated by JACKSON Chapman on 02/06 and 02/09 and was diagnosed with bipolar disorder and substance use and recommended to be started on Abilify 5mg daily and recommended for voluntary transfer to behavioral health unit for recent suicidal ideation. Today, the patient reported she was initially diagnosed with schizophrenia in 2005 and later diagnosed with "manic-depression" and bipolar disorder. She noted she has a significant amount of anxiety which she struggles with. She said that she has a lot of energy and sometimes gets manic with too much energy. She stated she is motivated to get to a safe place where she can work on physical therapy and cardiac rehab. She also would like to get into temporary and permanent housing eventually. She has heart failure and diabetes. She takes metformin and insulin for diabetes. She stated she [facility] and took a hit of meth, but had been sober off meth since March 2024 and is motivated to stay off meth. She reported she has tolerated the abilfy she was started on and plans to continue taking it and follow up with her outpatient care. She denied having suicidal or homicidal ideation, plan or intent and denied having auditory or visual hallucinations. MSE: alert and oriented speech-regular, rate, rhythm, volume Mood-"pretty good" Affect-euthymic, full range, congruent. Tht process-linear and goal directed Tht Content- Denied having suicidal and homicidal ideation. Denied auditory or visual hallucinations. No delusions or perseverations noted Insight-fair Judgment-fair Impulse control-fair. Diagnosis: UNSPECIFIED BIPOLAR DISORDER; METH USE DISORDER,IN REMISSION Assessment: This 39 yr old female appears to suffer from bipolar disorder and meth use disorder. She does not warrant [facility] hospitalization. She may benefit from continuing in therapy and following up with outpatient mental health. Plan: 1. Safety. The patient is a low risk for self harm and psychologically cl eared for discharge. 2. Legal-voluntary 3. Medications- continue the following: Abilify 5mg qday Sertraline 50mg qam Trazodone 50 mg qhs Hydroxyzine 50mg BID prn anxiety 4. Case discussed with team RN. 5. Please contact psychiatry if further follow up or reevaluation is desired. Yes NOEMI RODRIGUEZ MD February 11, 2025 15:29
[2025-02-11 20:00] VITALS: PULSE 72; PULSE 86; RESP 19; O2SAT 96
[2025-02-11 21:00] VITALS: BP 108/73; PULSE 75; RESP 18; TEMP 98.1; O2SAT 96
[2025-02-12 08:00] VITALS: PULSE 62; PULSE 70; RESP 15; O2SAT 98
[2025-02-12 09:00] VITALS: BP 111/44; PULSE 62; RESP 15; TEMP 97.6; O2SAT 98
--- NOTE | 2025-02-12 12:13 | DVHPN2 ---
Reviewed: Care Plan, H&P, Labs, Medications, Previous Orders, Radiology Changes from previous H/P or p: No Changes Eyes: No Pain, No Vision change, No Conjunctivae inflammation, No Eyelid inflammation, No Other, No Redness ENT: No Ear pain, No Ear discharge, No Nose pain, No Nose discharge, No Nose congestion, No Mouth pain, No Mouth swelling, No Throat pain, No Throat swelling, No Other Cardiovascular: No Chest Pain, No Palpitations, No Orthopnea, No Paroxysmal Noc. Dyspnea, No Edema, No Lt Headedness, No Other Respiratory: No Cough, No Dry, No Shortness of breath, No SOB with excertion, No Wheezing, No Hemoptysis, No Pleuritic Pain, No Sputum, No Other Gastrointestinal: No Nausea, No Vomiting, No Abdominal Pain, No Diarrhea, No Constipation, No Melena, No Hematochezia, No Other Genitourinary: No Dysuria, No Frequency, No Incontinence, No Hematuria, No Retention, No Other Musculoskeletal: No other, No neck pain, No shoulder pain, No arm pain, No back pain, No hand pain, No leg pain, No foot pain Skin: No Rash, No Lesions, No Jaundice, No Bruising, No Other Objective Vitals Vital Signs Date Time Temp Pulse Resp B/P (MAP) Pulse Ox O2 Delivery O2 Flow Rate FiO2 02/12/25 09:00 97.6 62 15 111/44 (66) 98 97.6 02/12/25 08:00 Room Air* 0 21 Intake/Output Intake and Output 02/12/25 07:00 Intake Total 600 ml Balance 600 ml Intake Oral 600 ml # Voids 5 # Bowel Movements 1 General Appearance: Alert, Oriented X3 Lungs: Clear to auscultation Cardiovascular: Regular rate, Normal S1, Normal S2 Abdomen: Normal bowel sounds Medications Current Medications Medications Dose Ordered Sig/Nikita Route Start Time Stop Time Status Last Admin Dose Admin Ondansetron HCl 4 mg Q4HP PRN IV 02/05/25 07:45 Docusate Sodium 100 mg BIDPRN PRN PO 02/05/25 07:45 Acetaminophen 650 mg Q6HP PRN PO 02/05/25 07:45 02/11/25 18:42 650 MG Nitroglycerin 0.4 mg Q5MINP PRN SL 02/05/25 07:45 Morphine Sulfate 2 mg Q30M PRN IV 02/05/25 07:45 Diagnostic Test (Pha) 1 strip ACHS 02/05/25 11:30 02/12/25 06:29 1 STRIP Insulin Human Regular HS SC 02/05/25 22:00 02/11/25 22:05 3 UNITS Insulin Human Regular AC SC 02/05/25 11:30 02/12/25 06:35 3 UNITS Dextrose 50 ml UD PRN IV 02/05/25 08:00 Levothyroxine Sodium 112 mcg QAM PO 02/05/25 08:06 02/12/25 06:29 112 MCG Sertraline HCl 50 mg DAILY PO 02/05/25 10:00 02/12/25 09:43 50 MG Trazodone HCl 50 mg HS PO 02/05/25 22:00 02/11/25 22:02 50 MG Atorvastatin Calcium 10 mg HS PO 02/05/25 22:00 02/11/25 22:02 10 MG Patient Own Medication 1 mg BIDPC PO 02/05/25 09:00 02/12/25 09:44 1 MG Sodium Chloride 1,000 ml @ 100 mls/hr Q10H IV 02/05/25 16:15 02/12/25 08:15 100 MLS/HR Hydroxyzine Pamoate 50 mg BID PRN PO 02/12/25 12:15 UNV Patient Own Medication 5 mg DAILY PO 02/13/25 10:00 UNV Laboratory Results Laboratory Tests 02/06/25 06:03 02/11/25 05:52 Urinalysis Test 02/06/25 12:18 Urine Color Light-yellow (Yellow) Urine Clarity Clear (Clear) Urine pH 6.0 (5.0-9.0) Urine Specific [place] 1.025 (1.001-1.035) Urine Protein Negative (Negative) Urine Ketones Negative (Negative) Urine Blood Negative /uL (Negative) Urine Nitrite Negative (Negative) Urine Bilirubin Negative (Negative) Urine Urobilinogen Normal mg/dL (Negative) Urine Leukocyte Esterase Trace /uL (Negative) Urine RBC 4 /hpf (0 - 4) Urine Microscopic WBC 3 /HPF (0-5) Urine Squamous Epithelial Cells Few /hpf (<5) Urine Bacteria Few /hpf (None Seen) H Urine Mucus Few (None Seen) Urine Glucose Normal mg/dL (Normal) Urine Test Negative (Negative) Microbiology Microbiology Date/Time Source Procedure Growth Status 02/06/25 01:55 Nose MRSA Screen - Final Complete 02/05/25 01:30 Throat Nose/Throat Culture - Final Complete 02/05/25 00:58 Blood Blood Culture - Final NO GROWTH AFTER 5 DAYS OF INCUBATION. Complete Labs and/or images reviewed: Labs reviewed by me, Image(s) reviewed by me Assessment/Plan Assessment/Plan Dehydration, Constipation, Acute kidney injury, Hypotension, SIRS, Hypokalemia, Hyperglycemia, Transaminitis, Bipolar, Schizophrenia, Diabetes, Hypothyroidism Suicide ideation, tele psych consult by Dr. Khang Clemente advised patient has bipolar and the patient is not a candidate for 5150 Advised Abilify 5 mg p.o. daily, Zoloft 50 mg p.o. daily trazodone 50 mg p.o. daily hydroxyzine 50 mg p.o. b.i.d. Plan discussed with: Patient My Orders Orders - DIANELYS BYNUM MD Procedure Category Date Status Time Pt Request For Service PT 02/11/25 Logged 15:18 Hydroxyzine Oral PHA 02/12/25 Transmitted (Vistaril Oral) 12:15 (Nf) Abilify PHA 02/13/25 Transmitted 10:00 Date of Service: February 12, 2025 Billing Provider: DIANELYS BYNUM MD Common Visit Codes: [id number] INP/OBS CARE(HIGH) DIANELYS BYNUM MD February 12, 2025 12:13
[2025-02-12] MEDS ORDERED: hydrOXYzine 25 MG TAB or CAP PO PRN (12:15)
[2025-02-12 13:00] VITALS: BP 111/72; PULSE 96; RESP 15; TEMP 97.5; O2SAT 93
[2025-02-12 17:00] VITALS: BP 112/69; PULSE 80; RESP 15; TEMP 98.6; O2SAT 95
[2025-02-12 20:00] VITALS: PULSE 79; PULSE 96; RESP 18; O2SAT 95
[2025-02-12 21:00] VITALS: BP 118/75; PULSE 79; RESP 18; TEMP 97.3; O2SAT 95
[2025-02-13 01:00] VITALS: BP 109/70; PULSE 75; RESP 18; TEMP 97.7; O2SAT 99
[2025-02-13 05:00] VITALS: BP 91/59; PULSE 75; RESP 18; TEMP 97.6; O2SAT 96
[2025-02-13 08:00] VITALS: RESP 16; O2SAT 98
[2025-02-13 09:00] VITALS: BP 123/77; PULSE 77; RESP 18; TEMP 98.2; O2SAT 96
--- NOTE | 2025-02-13 09:33 | DVHDS2 ---
Discharge Summary Date of Admission February 05, 2025 at 07:34 Date of Discharge: February 07, 2025 Admitting Diagnosis Generalized weakness polysubstance abuse Wounds: None Labs/Diagnostic Data: Laboratory Results Test 02/13/25 06:02 02/11/25 05:52 02/10/25 23:05 02/06/25 12:18 POC Glucose 101 mg/dl (70-106) White Blood Count 7.3 10^3/uL (4.4-10.8) Red Blood Count 4.53 10^6/uL (4.0-5.20) Hemoglobin 13.4 g/dL (12.2-16.2) Hematocrit 39.8 % (36.0-46.0) Mean Corpuscular Volume 87.9 fL (80.0-100.0) Mean Corpuscular Hemoglobin 29.6 pg (28.0-32.0) Mean Corpuscular Hemoglobin Concent 33.7 g/dL (32.0-36.0) Red Cell Distribution Width 13.8 % (11.8-14.3) Platelet Count 288 10^3/uL (140-450) Mean Platelet Volume 7.8 fL (6.9-10.8) Neutrophils (%) (Auto) 50.8 % (37.0-80.0) Lymphocytes (%) (Auto) 31.7 % (10.0-50.0) Monocytes (%) (Auto) 12.3 % (0.0-12.0) Eosinophils (%) (Auto) 5.0 % (0.0-7.0) Basophils (%) (Auto) 0.2 % (0.0-2.0) Neutrophils # (Auto) 3.7 10 ^3/uL (1.6-8.6) Lymphocytes # (Auto) 2.3 10 ^3/uL (0.4-5.4) Monocytes # (Auto) 0.9 10 ^3/uL (0-1.3) Eosinophils # (Auto) 0.4 10 ^3/uL (0-0.8) Basophils # (Auto) 0 10 ^3/uL (0-0.2) Nucleated Red Blood Cells 0.1 % Creatinine 0.64 mg/dL (0.550-1.02) Glomerular Filtration Rate Calc 114 mL/min (>90) Vancomycin Level Trough 9.4 ug/mL (5-10) Urine Color Light-yellow (Yellow) Urine Clarity Clear (Clear) Urine pH 6.0 (5.0-9.0) Urine Specific [place] 1.025 (1.001-1.035) Urine Protein Negative (Negative) Urine Ketones Negative (Negative) Urine Blood Negative /uL (Negative) Urine Nitrite Negative (Negative) Urine Bilirubin Negative (Negative) Urine Urobilinogen Normal mg/dL (Negative) Urine Leukocyte Esterase Trace /uL (Negative) Urine RBC 4 /hpf (0 - 4) Urine Microscopic WBC 3 /HPF (0-5) Urine Squamous Epithelial Cells Few /hpf (<5) Urine Bacteria Few /hpf (None Seen) Urine Mucus Few (None Seen) Urine Glucose Normal mg/dL (Normal) Urine Test Negative (Negative) Urine Opiates Screen Neg (NEGATIVE) Urine Fentanyl Screen Neg (NEGATIVE) Urine Barbiturates Screen Neg (NEGATIVE) Urine Phencyclidine Screen Neg (NEGATIVE) Urine Amphetamines Screen Pos (NEGATIVE) Urine Benzodiazepines Screen Neg (NEGATIVE) Urine Cocaine Screen Neg (NEGATIVE) Urine Cannabinoids Screen Neg (NEGATIVE) Test 02/06/25 06:03 02/05/25 04:05 02/05/25 01:30 02/05/25 00:58 Sodium Level 140 mmol/L (136-145) Potassium Level 4.0 mmol/L (3.5-5.1) Chloride Level 108 mmol/L (98-107) Carbon Dioxide Level 25 mmol/L (20-31) Anion Gap 7 (5-15) Blood Urea Nitrogen 13 mg/dL (9-23) BUN/Creatinine Ratio 19.7 (10.0-20.0) Serum Glucose 103 mg/dL (74-106) Calcium Level 8.7 mg/dL (8.7-10.4) Total Bilirubin 0.6 mg/dL (0.2-1.0) Aspartate Amino Transferase (AST) 55 U/L (13-40) Alanine Aminotransferase (ALT) 39 U/L (7-40) Alkaline Phosphatase 71 U/L (46-116) Total Protein 6.7 g/dL (5.7-8.2) Albumin 4.0 g/dL (3.2-4.8) Hepatitis B Surface Antigen Negative (Negative) Hepatitis C Antibody Negative (Negative) Troponin I High Sensitivity 6 ng/L (</=34) Influenza Type A Antigen Negative (Negative) Influenza Type B Antigen Negative (Negative) SARS-CoV-2 Antigen (Rapid) Negative (NEGATIVE) Group A Streptococcus Rapid Negative Hemoglobin A1c 5.4 % A1C (<5.7) Lactic Acid Level 1.5 mmol/L (0.4-2.0) Magnesium Level 2.0 mg/dL (1.6-2.6) Thyroid Stimulating Hormone (TSH) 8.03 uIU/mL (0.55-4.78) Free Thyroxine (T4) Calculated 1.32 ng/dL (0.89-1.76) Free Triiodothyronine (T3) pg/mL 3.08 pg/mL (2.3-4.2) Other Laboratory Tests 02/11/25 05:52 02/06/25 06:03 Brief Hx & Hospital Course: In 1-year-old female with a polysubstance abuse bipolar schizophrenia admitted for generalized weakness. She was in a sober living facility for 11 months and then recently relapsed and came to the ER for generalized weakness and admitted dehydration resolved with the IV fluids she was hypotensive which has resolved with IV fluids and medications mild transaminitis patient has a history of diabetes hypothyroidism. Patient had suicide ideation tele psych consult was placed Dr. Cosmo Clemente advised patient has bipolar and the patient is not a candidate for 5150. He advised Abilify 5 mg p.o. daily Zoloft 50 mg p.o. daily and trazodone 50 mg daily and hydroxyzine 50 mg b.i.d. which were given to the patient Social service consult was placed and they found replace in recuperative care patient is being discharged today recuperative care. New medications transmitted to the pharmacy. She will continue all other home medications. And follow up with the primary Dr. Consults/Reason for consult Tele psych Dr. Khang Clemente Operations or Procedures CT abdomen pelvis without contrast Condition at Discharge: Fair Final Diagnosis/Problems List Dehydration, Constipation, Acute kidney injury, Hypotension, SIRS, Hypokalemia, Hyperglycemia, Transaminitis, Bipolar, Schizophrenia, Diabetes, Hypothyroidism Suicide ideation, tele psych consult by Dr. Khang Clemente advised patient has bipolar and the patient is not a candidate for 5150 Advised Abilify 5 mg p.o. daily, Zoloft 50 mg p.o. daily trazodone 50 mg p.o. daily hydroxyzine 50 mg p.o. b.i.d. Discharge Disposition: Home Discharge Instruct/Medications Diet: Regular Activity: No Restrictions, As Tolerated Follow Up/Referral: PCp in 7 days Medications: Medications transmitted to the pharmacy 35 (Time taken for discharge summary 35 minutes) Discharge Statement: "Patient was advised to return to the ER or call 911 if any headaches, dizziness, shortness of breath, chest pain, abdominal pain, bleeding, fevers, or worsening of medical condition. Patient was counseled about treatment plan, medications, possible side effects, patientverbalized understanding. All questions were answered to the best of my ability. This discharge took greater then 30 minutes in planning, reviewing documentation, counseling the patient, and discussing with other team members." ASSESSMENT ASSESSMENT Hospital Course Improved Assessment Dehydration, Constipation, Acute kidney injury, Hypotension, SIRS, Hypokalemia, Hyperglycemia, Transaminitis, Bipolar, Schizophrenia, Diabetes, Hypothyroidism Suicide ideation, tele psych consult by Dr. Khang Clemente advised patient has bipolar and the patient is not a candidate for 5150 Advised Abilify 5 mg p.o. daily, Zoloft 50 mg p.o. daily trazodone 50 mg p.o. daily hydroxyzine 50 mg p.o. b.i.d. Date of Service: February 13, 2025 Billing Provider: DIANELYS BYNUM MD Common Visit Codes: 58144-IQD/OBS DISCH DAY >30min DIANELYS BYNUM MD February 13, 2025 09:33
== END 2025-02-13 12:44 | disposition home or self-care (01) | DRG 640 ==
LOC: ER 23:46 → OVERFLOW 02-05 07:34 → ER 02-05 07:38 → TELE-EAST 02-05 23:56 → EAST 02-12 17:27 → TELE-EAST 02-13 07:52
PROVIDERS: ADMIT Family Medicine; ATTEND Family Medicine
DX: E86.0 Dehydration (principal); N17.0 Acute kidney failure with tubular necrosis; R65.10 Systemic inflammatory response syndrome (SIRS) of non-infectious origin without acute organ dysfunction; Z59.00 Homelessness unspecified; R45.851 Suicidal ideations; Z68.41 Body mass index [BMI] 40.0-44.9, adult; E87.6 Hypokalemia; E11.65 Type 2 diabetes mellitus with hyperglycemia; E03.9 Hypothyroidism, unspecified; K59.00 Constipation, unspecified; I95.9 Hypotension, unspecified; F31.9 Bipolar disorder, unspecified; E11.40 Type 2 diabetes mellitus with diabetic neuropathy, unspecified; F17.210 Nicotine dependence, cigarettes, uncomplicated; Z20.822 Contact with and (suspected) exposure to COVID-19; E66.01 Morbid (severe) obesity due to excess calories; K80.20 Calculus of gallbladder without cholecystitis without obstruction; R74.01 Elevation of levels of liver transaminase levels; I50.9 Heart failure, unspecified; F15.10 Other stimulant abuse, uncomplicated; I11.0 Hypertensive heart disease with heart failure; F25.9 Schizoaffective disorder, unspecified; F41.9 Anxiety disorder, unspecified; E78.5 Hyperlipidemia, unspecified; Z79.84 Long term (current) use of oral hypoglycemic drugs; Z79.899 Other long term (current) drug therapy; Z90.49 Acquired absence of other specified parts of digestive tract; Z56.0 Unemployment, unspecified
CPT/HCPCS: 36415; 71045; 74176; 80053; 80202; 80307; 81001; 81025; 82565; 82962; 83036; 83605; 83735; 84439; 84443; 84481; 84484; 85025; 86803; 87040; 87070; 87081; 87340; 87426; 87804; 87880; 97110; 97116; 97163; 97530; G0378; J1815; J2543

== ENCOUNTER 2025-02-21 02:45 | Emergency (ER) | payer OTHER, MEDICAID ==
[~2025-02-21] VITALS: Ht 160 cm; Wt 120.5 kg
[~2025-02-21 02:45] MED LIST changes: +ACET-1304 PO; +ALBUAER3 IN; +ATOR10TA PO; +AUG875T PO; -CLIN-203 PO; +DIPH25CA66 PO; +HYDR50TA32 PO; +LEVO112T4 PO; -LEVO125T7 PO; +LISI10TA34 PO; -NITR100C6 PO; -PANT40TA2 PO; -QUET100T47 PO; -RISP2TAB62 PO; -SERT-160 PO; +SERT-206 PO; +SERT-289 PO; +TRAZ-227 PO; +VARE1TAB32 PO; +[UNRECOGNIZED DRUG - CODE] PO
--- NOTE | 2025-02-21 03:45 | ECG ---
[facility] Test Date: 2025-02-21 Test Time: 03:43:03 Pat Name: PAUL LAZCANO Department: ed Room: Gender: F Instructor Pilot: delia : 1985 Requested By: KIMBERLEY MARIE Order Number: [id number] Reading MD: Andres Vela Measurements Intervals [place] Rate: 70 P: 35 [place]: 162 QRS: -18 QRSD: 101 T: 6 QT: 412 QTc: 445 Interpretive Statements Sinus rhythm Abnormal R-wave progression, early transition Left ventricular hypertrophy Electronically Signed On 02-24-2025 22:11:03 PDT by Andres Vela Please click the below link to view image of tracing.
[2025-02-21 03:51] LABS: Basophils # (auto) 0 10 ^3/uL (0-0.2); Basophils % (auto) 0.3 % (0.0-2.0); Eosinophils # (auto) 0.2 10 ^3/uL (0-0.8); Hematocrit 37.7 % (36.0-46.0); Hemoglobin 12.8 g/dL (12.2-16.2); Lymphocytes # (auto) 3.3 10 ^3/uL (0.4-5.4); Lymphocytes % (auto) 43.8 % (10.0-50.0); Mean Corpuscular Hemoglobin 29.6 pg (28.0-32.0); Mean Corpuscular Volume 87.1 fL (80.0-100.0); Monocytes # (auto) 0.9 10 ^3/uL (0-1.3); Monocytes % (auto) 11.8 % (0.0-12.0); Neutrophils # (auto) 3.1 10 ^3/uL (1.6-8.6); Neutrophils % (auto) 41.1 % (37.0-80.0); Nucleated Red Blood Cells % 0.1 %; Platelet Count (auto) 313 10^3/uL (140-450); Red Blood Cells 4.34 10^6/uL (4.0-5.20); Red Cell Distribution Width 14.1 % (11.8-14.3); White Blood Cell 7.5 10^3/uL (4.4-10.8)
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
[2025-02-21 04:07] LABS: Potassium 3.6 mmol/L (3.5-5.1); Sodium 140 mmol/L (136-145)
[2025-02-21 04:08] LABS: Anion Gap 9 (5-15); Carbon Dioxide 23 mmol/L (20-31)
[2025-02-21 04:13] LABS: BUN/Creatinine Ratio 20.8 (10.0-20.0); Blood Urea Nitrogen 15 mg/dL (9-23)
[2025-02-21 04:17] LABS: Chloride 108 mmol/L (98-107); Glucose 107 mg/dL (74-106)
[2025-02-21 04:53] VITALS: BP 111/72; PULSE 85; RESP 21; TEMP 97.5; O2SAT 98
[2025-02-21] MEDS ORDERED: TRAZ-227 PO (05:25)
[2025-02-21] MEDS ORDERED: HYDR50TA32 PO (05:25)
[2025-02-21] MEDS ORDERED: SERT-206 PO (05:25)
[2025-02-21] MEDS ORDERED: METF-370 PO (05:25)
[2025-02-21] MEDS ORDERED: LEVO112T4 PO (05:25)
[2025-02-21] MEDS ORDERED: ATOR10TA PO (05:25)
[2025-02-21] MEDS ORDERED: LISI10TA34 PO (05:25)
--- NOTE | 2025-02-21 05:41 | ECG ---
[facility] Test Date: 2025-02-21 Test Time: 02:45:33 Pat Name: PAUL LAZCANO Department: ED Room: Gender: F Curriculum And Assessment Coordinator: FIDEL : 1985 Requested By: KIMBERLEY MARIE Order Number: [id number] Reading MD: Andres Vela Measurements Intervals [place] Rate: 81 P: 48 LA: 152 QRS: -18 QRSD: 103 T: 7 QT: 394 QTc: 458 Interpretive Statements Sinus rhythm Abnormal R-wave progression, early transition Left ventricular hypertrophy Electronically Signed On 02-24-2025 22:10:57 PDT by Andres Vela Please click the below link to view image of tracing.
--- NOTE | 2025-02-21 05:50 | DVH ---
EXAM: XR Chest, 1 View CLINICAL INDICATION: CHEST PAIN TECHNIQUE: Frontal view of the chest. COMPARISON: XY CHEST XRAY 1 VIEW on DOS: 02/05/25, XY CHEST PORTABLE on DOS: 09/04/24, CHEST XRAY 1 VIEW on DOS: 06/01/21, CXR1 on DOS: 06/01/21, CHEST PORTABLE on DOS: 01/25/21 FINDINGS: LUNGS AND PLEURAL SPACES: Unremarkable. No consolidation. No pneumothorax. HEART: Unremarkable. No cardiomegaly. MEDIASTINUM: Unremarkable. Normal mediastinal contour. BONES/JOINTS: Unremarkable. No acute fracture. OTHER FINDINGS: . IMPRESSION: No acute cardiopulmonary process.
== END 2025-02-21 05:58 | disposition home or self-care (01) ==
LOC: ER 02:45 → EDBD 02:45 → ER 05:56
DX: R07.89 Other chest pain (principal); F17.210 Nicotine dependence, cigarettes, uncomplicated; F14.90 Cocaine use, unspecified, uncomplicated; F12.90 Cannabis use, unspecified, uncomplicated; F41.9 Anxiety disorder, unspecified; F31.9 Bipolar disorder, unspecified; F20.9 Schizophrenia, unspecified; E78.5 Hyperlipidemia, unspecified; E66.01 Morbid (severe) obesity due to excess calories; E11.9 Type 2 diabetes mellitus without complications; E03.9 Hypothyroidism, unspecified; G47.30 Sleep apnea, unspecified; I50.9 Heart failure, unspecified; F19.90 Other psychoactive substance use, unspecified, uncomplicated; Z90.49 Acquired absence of other specified parts of digestive tract; Z59.00 Homelessness unspecified; Z79.84 Long term (current) use of oral hypoglycemic drugs; Z79.890 Hormone replacement therapy; Z79.899 Other long term (current) drug therapy; Z87.898 Personal history of other specified conditions; Z68.42 Body mass index [BMI] 45.0-49.9, adult
CPT/HCPCS: 36415; 71045; 80048; 82947; 84484; 85025; 93005

== ENCOUNTER 2025-02-27 08:34 | Emergency (ER) | payer OTHER, MEDICAID ==
[~2025-02-27] VITALS: Ht 157.5 cm; Wt 108.4 kg
--- NOTE | 2025-02-27 09:24 | ED.PDOC ---
Psychiatric HPI Comments 39 y.o female with PMH of anxiety, SI, depression, schizophrenia, CHF, DM, thyroid disease, and hyperlipidemia, presents to the ED for an evaluation of mental health. Patient reports recently getting kicked out of her independent living facility after being accused of drinking hand sales training representative yesterday. Patient reports she was only washing her mouth with the sales training representative and did not drink it. Patient admits her behavior has been abnormal and has been kicked out of another facility for this behavior change. Patient at this time denies any SI or HI. Chief Complaint: Mental Health Time Seen by MD: 09:08 Primary Care Provider: NONE Reviewed Notes: Nurses Notes, Medications, Allergies Information Source: Patient Mode of Arrival: Ambulatory Severity: Able to Control Self Severity of Pain: None Severity of Mental Status: Moderate Severity of Symptoms: Moderate Timing: Hours Duration: Since onset Presents with: Bizarre Behavior Circumstance: Medical Clearance Current substance abuse: None History of: Depression, Anxiety, Schizophrenia, Suicidal Attempt Associated signs and symptoms: Depression Past Medical History PAST MEDICAL HISTORY: Anxiety, CHF, Depression, DM, Gallstones, High Lipids, H ypotension, Schizophrenia, Thyroid Surgical History: Appendectomy DRY FOLDER CLOTH History: No Pertinent DRY FOLDER CLOTH History Family History Family History: Reviewed,noncontributory to illness Social History Smoker: Cigarettes, Less Than 1 Pack/Day Alcohol: Denies ETOH Use Drugs: Cocaine, Marijuana, Methamphetamine Lives In: Homeless Constitutional: denies: chills, diaphoresis, fatigue, fever, malaise, sweats, weakness, others EENTM: denies: blurred vision, double vision, ear bleeding, ear discharge, ear drainage, ear pain, ear ringing, eye pain, eye redness, hearing loss, mouth pain, mouth swelling, nasal discharge, nose bleeding, nose congestion, nose pain, photophobia, tearing, throat pain, throat swelling, voice changes, others Respiratory: denies: cough, hemoptysis, orthopnea, SOB at rest, shortness of breath, SOB with excertion, stridor, wheezing, others Cardiovascular: denies: chest pain, dizzy spells, diaphoresis, Dyspnea on exertion, edema, irregular heart beat, left arm pain, lightheadedness, palpitations, PND, syncope, others Gastrointestinal: denies: abdomen distended, abdominal pain, blood streaked bowels, constipated, diarrhea, dysphagia, difficulty swallowing, hematemesis, melena, nausea, poor appetite, poor fluid intake, rectal bleeding, rectal pain, vomiting, others Genitourinary: denies: abnormal vagina bleeding, burning, dyspareunia, dysuria, flank pain, frequency, hematuria, incontinence, pain, , vagina discharge, urgency, others Neurological: denies: dizziness, fainting, headache, left sided numbness, left sided weakness, numbness, paresthesia, pre-existing deficit, right sided numbness, right sided weakness, seizure, speech problems, tingling, tremors, weakness, others Musculoskeletal: denies: back pain, gout, joint pain, joint swelling, muscle pain, muscle stiffness, neck pain, others Integumetry: denies: bruises, change in color, change in hair/nails, dryness, laceration, lesions, lumps, rash, wounds, others Allergic/Immunocompromised: denies: Difficulty Healing, Frequent Infections, Hives, Itching, others Hematologic/Lymphatic: denies: anemia, blood clots, easy bleeding, easy bruising, swollen glands, others Endocrine: denies: excessive hunger, excessive sweating, excessive thirst, excessive urination, flushing, intolerance to cold, intolerance to heat, unexplained weight gain, unexplained weight loss, others Psychiatric: reports: depression, schizophrenia; denies: anxiety, bipolar d isorder, hopeless, panic disorder, sleepless, suicidal, others All Other Systems: Reviewed and Negative Physical Exam General Appearance: Moderate Distress HEENT: Normal ENT Inspection, Pharynx Normal, TMs Normal Neck: Full Range of Motion, Non-Tender, Normal, Normal Inspection Respiratory: Chest Non-Tender, Lungs Clear, No Accessory Muscle Use, No Respiratory Distress, Normal Breath Sounds Cardiovascular: No Edema, No JVD, No Murmur, No Gallop, Normal Peripheral Pulses, Regular Rate/Rhythm Breast Exam: Deferred Gastrointestinal: No Organomegaly, Non Tender, No Pulsatile Mass, Normal Bowel Sounds, Soft Genitalia: Deferred Pelvic: Deferred Rectal: Deferred Extremities: No calf tenderness, Normal capillary refill, Normal inspection, Normal range of motion, Non-tender, No pedal edema Musculoskeletal : Apperance: Normal Neurologic: Alert, supply chain logistics manager II-XII nml as Tested, No Motor Deficits, Normal Affect, Normal Mood, No Sensory Deficits Cerebellar Function: Normal Reflexes: Normal Skin: Dry, Normal Color, Warm Peripheral Pulses: 3+ Radial (R), 3+ Radial (L) Lymphatic: No Adenopathy Was a procedure done? Was a procedure done?: No Psych Differential Dx Psych. Differential Dx: Depression, Hopeless, Schizoprenia X-Ray, Labs, Meds, VS Vital Signs Date Time Temp Pulse Resp B/P (MAP) Pulse Ox O2 Delivery O2 Flow Rate FiO2 02/27/25 08:49 98.0 113 20 120/86 (97) 97 98.0 Lab Test 02/27/25 09:32 Range/Units Urine Color Yellow Yellow Urine Clarity Clear Clear Urine pH 6.0 5.0-9.0 Urine Specific [place] 1.030 1.001-1.035 Urine Protein Trace H Negative Urine Ketones Negative Negative Urine Blood Negative Negative /uL Urine Nitrite Negative Negative Urine Bilirubin Negative Negative Urine Urobilinogen 2 H Negative mg/dL Urine Leukocyte Esterase 1+ Negative /uL Urine RBC 2 0 - 4 /hpf Urine Microscopic WBC 2 0-5 /HPF Urine Squamous Epithelial Cells Few <5 /hpf Urine Bacteria None seen None Seen /hpf Urine Mucus Few None Seen Urine Glucose Normal Normal mg/dL Urine Opiates Screen Pending Urine Fentanyl Screen Pending Urine Barbiturates Screen Pending Urine Phencyclidine Screen Pending Urine Amphetamines Screen Pending Urine Benzodiazepines Screen Pending Urine Cocaine Screen Pending Urine Cannabinoids Screen Pending Patient alert. No sign of distress. Psychiatric illness. Vitals stable. Answering questions. Urinalysis shows UTI. She was given Rocephin. Medically cleared. Psychiatric evaluation. Time of 1ST Reevaluation: 09:20 Reevaluation 1ST: Improved Patient Education/Counseling: Diagnosis, Treatment, Prognosis Family Education/Counseling: No Family Present Departure 1 Departure Time of Disposition: 10:01 Impression: Primary Impression: Schizophrenia Qualified Codes: F20.9 - Schizophrenia, unspecified Additional Impression: UTI (lower urinary tract infection) Disposition: 30 STILL A PATIENT Condition: Good Critical Care Note Critical Care Time?: No Stability Stability form required: No I personally scribed for JULIUS POWERS MD ([email or web address]) on 02/27/25 at 09:24. Electronically submitted by Estela Davis ([facility]). JULIUS POWERS MD Feb 27, 2025 09:24
[2025-02-27 09:37] LABS: Urine Bacteria None Seen /hpf (None Seen)
[2025-02-27 09:56] LABS: Urine Blood Negative /uL (Negative); Urine Clarity Clear (Clear); Urine Color Yellow (Yellow); Urine Mucus FEW (None Seen); Urine Protein, UAD TRACE (Negative); Urine Squamous Epithelial Cell FEW /hpf (<5); Urine Urobilinogen 2 mg/dL (Negative); Urine WBC 2 /HPF (0-5)
[2025-02-27 10:05] LABS: Amphetamine Screen, Urine Neg (NEGATIVE); Barbiturate Scree,Urine Neg (NEGATIVE); Benzodiazephine Screen, Urine Neg (NEGATIVE); Cannabinoid Screen, Urine Neg (NEGATIVE); Cocaine Screen, Urine Neg (NEGATIVE); Opiate Scree,Urine Neg (NEGATIVE); Phencyclidine Screen, Urine Neg (NEGATIVE)
--- NOTE | 2025-02-27 12:19 | DVHINCON2 ---
Date of Service if different f: Feb 27, 2025 Consultation ([facility]) Labs Laboratory Tests Test 02/27/25 09:32 Urine Color Yellow (Yellow) Urine Clarity Clear (Clear) Urine pH 6.0 (5.0-9.0) Urine Specific [place] 1.030 (1.001-1.035) Urine Protein Trace (Negative) Urine Ketones Negative (Negative) Urine Blood Negative /uL (Negative) Urine Nitrite Negative (Negative) Urine Bilirubin Negative (Negative) Urine Urobilinogen 2 mg/dL (Negative) Urine Leukocyte Esterase 1+ /uL (Negative) Urine RBC 2 /hpf (0 - 4) Urine Microscopic WBC 2 /HPF (0-5) Urine Squamous Epithelial Cells Few /hpf (<5) Urine Bacteria None seen /hpf (None Seen) Urine Mucus Few (None Seen) Urine Glucose Normal mg/dL (Normal) Urine Opiates Screen Neg (NEGATIVE) Urine Fentanyl Screen Neg (NEGATIVE) Urine Barbiturates Screen Neg (NEGATIVE) Urine Phencyclidine Screen Neg (NEGATIVE) Urine Amphetamines Screen Neg (NEGATIVE) Urine Benzodiazepines Screen Neg (NEGATIVE) Urine Cocaine Screen Neg (NEGATIVE) Urine Cannabinoids Screen Neg (NEGATIVE) Appetite: Fair Appearance: Stated age, Disheveled Psychomotor activity: Restless Behavioral: Cooperative Eye contact: Appropriate Speech: Pressured, Rapid Affect: Mood Congruent Mood: Anxious, Irritable Thought processes: Linear/Goal-directed Thought content: Hallucinations (auditory) Suicidal ideations: Absent Homicidal ideations: Absent Orientation: Person, Place, Time, Situation Memory intact: Recent Intellect: Average Abstractability: WNL Concentration: Adequate Attention: Adequate Judgement: Marginal Insight: Poor Vitals Vital Signs Date Time Temp Pulse Resp B/P (MAP) Pulse Ox O2 Delivery O2 Flow Rate FiO2 02/27/25 08:49 98.0 113 20 120/86 (97) 97 98.0 Medication adjusted: Yes Diagnosis: unspecified mood disorder, unspecified psychosis Plan : Patient reports feeling hopeless, anxious, and unstable and requesting psych hospitalization for stabilization Recommend to transfer to [facility] psych hosp. if no available beds or patient wants to discharge, please re-consult recommend to restart sertraline 50mg po daily . Hydroxyzine 50mg BID Abilify 5mg po qhs History of Present Illness Reason for Consult : evaluation of psychiatric symptoms HPI : This is a 39-year-old female with hx of polysubstance use, she presented to Ed after being kicked out of housing/sober living facility Patient is evaluated via telepsychiatry, she reports feeling irritable, depressed, hopeless and misunderstood. She often becomes angry and triggered by others. She does not feel stable and has not used her medications for unknown duration. She reports being kicked out of housing facility and found trying to drink hand advertising director. She denies suicidal /homicidal ideation, but reports wanting life to be over if she is to continue struggling. She reports auditory and visual hallucinations, non-command. She has sleeping for several days. She reports good appetite. Past Psychiatric History : She has multiple prior psych hosps and admissions. She has suicide attempt in [address], [address] in [address] wanting vehicles to hit her and banging head on the ground. She reports hx of sertraline 50mg, trazodone 50m g, and hydroxyzine 50mg. She no current outpatient mental health services Past Medical History : per chart review Social History : She is homeless, kick out of housing yesterday. She has 7 children, minors all in DCFS custody or adopted. She has long hx of methamphetamine use. She reports being sober 7 days. She denies any known family history. She is not . FOX MEDRANO DNP Feb 27, 2025 12:19
[2025-02-27] MEDS: cefTRIAXone SOD 1,000 MG VL ONE (14:59)
[2025-02-27] MEDS: cefTRIAXone W LIDOCAINE 1 GM IM IM ONE (14:59)
[2025-02-27] MEDS: ACETAMINOPHEN 325 MG TAB PO ONE (15:15)
[2025-02-27 20:00] VITALS: PULSE 81; RESP 16; O2SAT 94
[2025-02-28] MEDS: diphenhdrAMINE HCL 25 MG CAP PO ONE (03:24)
[2025-02-28] MEDS: traZODone HCL 50 MG TAB PO ONE (03:25)
[2025-02-28 08:00] VITALS: PULSE 77; RESP 14; O2SAT 96
[2025-02-28 08:40] VITALS: BP 116/72; PULSE 77; RESP 14; TEMP 98.1; O2SAT 96
== END 2025-02-27 21:38 | disposition short-term general hospital (02) ==
LOC: ER 08:34
DX: F20.9 Schizophrenia, unspecified (principal); N39.0 Urinary tract infection, site not specified; E11.9 Type 2 diabetes mellitus without complications; E78.5 Hyperlipidemia, unspecified; F17.210 Nicotine dependence, cigarettes, uncomplicated; F32.A Depression, unspecified; E03.9 Hypothyroidism, unspecified; I50.9 Heart failure, unspecified; Z79.899 Other long term (current) drug therapy; Z90.49 Acquired absence of other specified parts of digestive tract
CPT/HCPCS: 80307; 81001; 81025; 82947; 96372; 99285; J0696; 82962

== ENCOUNTER 2025-03-08 09:30 | Emergency (ER) | payer OTHER, MEDICAID ==
[~2025-03-08] VITALS: Ht 157.5 cm; Wt 105.4 kg
--- NOTE | 2025-03-08 09:55 | ED.PDOC ---
History of Present Illness HPI Comments 39-year-old female presents with a chief complaint of medication clearance for htn and refill request. Patient states that she needs medical clearance so she can go to a rehab facility for meth. pt states that at crisis center turned her away and told her her BP was too high. Patient also is endorsing that she needs to get refills on her medication. pt denies SI, HI Time Seen by MD: 10:22 Primary Care Provider: NONE Reviewed Notes: Medications, Allergies Allergies: Coded Allergies: NO KNOWN ALLERGIES (Unverified , 09/02/14) Home Meds Active Scripts Atorvastatin Calcium (Lipitor) 10 Mg Tab, 10 MG PO HS for 30 Days, #30 TAB Prov:KIMBERLEY MARIE MD 02/21/25 Lisinopril (Lisinopril) 10 Mg Tab, 1 TAB PO DAILY for 30 Days, #30 TAB Prov:KIMBERLEY MARIE MD 02/21/25 Levothyroxine Sodium (Levothyroxine Sodium) 112 Mcg Tab, 1 TAB PO DAILY for 30 Days, #30 TAB Prov:KIMBERLEY MARIE MD 02/21/25 Sertraline Hcl (Sertraline Hcl) 50 Mg Tab, 1 TAB PO DAILY for 30 Days, #30 TAB Prov:KIMBERLEY MARIE MD 02/21/25 Trazodone Hcl (Trazodone Hcl) 50 Mg Tab, 1 TAB PO HS for 30 Days, #30 TAB Prov:KIMBERLEY MARIE MD 02/21/25 Hydroxyzine HCl (Hydroxyzine Hydrochloride) 50 Mg Tab, 1 TAB PO BIDPRN PRN for 30 Days, #60 TAB Prov:KIBMERLEY MARIE MD 02/21/25 Metformin Hydrochloride (Metformin Hcl) 500 Mg Tab, 1 TAB PO BID for 30 Days, #60 TAB Prov:KIMBERLEY MARIE MD 02/21/25 Amoxicillin & Pot Clavulanate (AUGMENTIN TABLET) 875 Mg Tb, 875 MG PO BID for 7 Days, #14 TAB Prov:RENETTA CASTAÑEDA MD 02/07/25 Reported Medications Albuterol Sulfate (VENTOLIN MDI) 90 Mcg Ih, 90 MCG IN, INH 02/06/25 Sertraline HCl (Sertraline HCl) 50 Mg Tab, 50 MG PO, TAB 02/06/25 Qbakvzr-Bvnstlhxyeetv-Oehczjad (Headache Relief/Extra Str 250-250-65 mg) 1 Tab Tab, 1 TAB PO, TAB 02/06/25 Diphenhydramine Hcl (Benadryl Allergy) 25 Mg Cap, 25 CAP PO QPM, #30 CAP 1 Refill 02/06/25 Acetaminophen (Tylenol Extra Strength) 500 Mg Tab, 500 MG PO, TAB 02/06/25 Varenicline Tartrate (Varenicline Tartrate Cont) 1 Mg Tab, 1 MG PO BID 02/05/25 Information Source: Patient Mode of Arrival: Ambulatory Severity: Moderate Timing: Hours Duration: Since onset Prehospital treatment: None Past Medical History PAST MEDICAL HISTORY: Anxiety, CHF, Depression, DM, Gallstones, High Lipids, Hypotension, Schizophrenia, Thyroid Surgical History: Appendectomy MOLDER MACHINE TENDER History: No Pertinent MOLDER MACHINE TENDER History Family History Family History: Reviewed,noncontributory to illness Social History Smoker: Cigarettes, Less Than 1 Pack/Day Alcohol: Denies ETOH Use Drugs: Cocaine, Marijuana, Methamphetamine Lives In: Homeless Constitutional: denies: chills, diaphoresis, fatigue, fever, malaise, sweats, weakness, others EENTM: denies: blurred vision, double vision, ear bleeding, ear discharge, ear drainage, ear pain, ear ringing, eye pain, eye redness, hearing loss, mouth pain, mouth swelling, nasal discharge, nose bleeding, nose congestion, nose pain, photophobia, tearing, throat pain, throat swelling, voice changes, others Respiratory: denies: cough, hemoptysis, orthopnea, SOB at rest, shortness of breath, SOB with excertion, stridor, wheezing, others Cardiovascular: denies: chest pain, dizzy spells, diaphoresis, Dyspnea on exertion, edema, irregular heart beat, left arm pain, lightheadedness, palpitations, PND, syncope, others Gastrointestinal: denies: abdomen distended, abdominal pain, blood streaked bowels, constipated, diarrhea, dysphagia, difficulty swallowing, hematemesis, melena, nausea, poor appetite, poor fluid intake, rectal bleeding, rectal pain, vomiting, others Genitourinary: denies: abnormal vagina bleeding, burning, dyspareunia, dysuria, flank pain, frequency, hematuria, incontinence, pain, , vagina discharge, urgency, others Neurological: denies: dizziness, fainting, headache, left sided numbness, left sided weakness, numbness, paresthesia, pre-existing deficit, right sided numbness, right sided weakness, seizure, speech problems, tingling, tremors, weakness, others Musculoskeletal: denies: back pain, gout, joint pain, joint swelling, muscle pain, muscle stiffness, neck pain, others Integumetry: denies: bruises, change in color, change in hair/nails, dryness, laceration, lesions, lumps, rash, wounds, others Allergic/Immunocompromised: denies: Difficulty Healing, Frequent Infections, Hives, Itching, others Hematologic/Lymphatic: denies: anemia, blood clots, easy bleeding, easy bruising, swollen glands, others Endocrine: denies: excessive hunger, excessive sweating, excessive thirst, excessive urination, flushing, intolerance to cold, intolerance to heat, unexplained weight gain, unexplained weight loss, others Psychiatric: denies: anxiety, bipolar disorder, depression, hopeless, panic disorder, schizophrenia, sleepless, suicidal, others All Other Systems: Reviewed and Negative Physical Exam General Appearance: No Apparent Distress, Normal HEENT: Normal ENT Inspection, Pharynx Normal, TMs Normal Neck: Full Range of Motion, Non-Tender, Normal, Normal Inspection Respiratory: Chest Non-Tender, Lungs Clear, No Accessory Muscle Use, No Respiratory Distress, Normal Breath Sounds Cardiovascular: No Edema, No JVD, No Murmur, No Gallop, Normal Peripheral Pulses, Regular Rate/Rhythm Breast Exam: Deferred Gastrointestinal: No Organomegaly, Non Tender, No Pulsatile Mass, Normal Bowel Sounds, Soft Genitalia: Deferred Pelvic: Deferred Rectal: Deferred Extremities: No calf tenderness, Normal capillary refill, Normal inspection, Normal range of motion, Non-tender, No pedal edema Musculoskeletal : Apperance: Normal Neurologic: Alert, hunting sales leader II-XII nml as Tested, No Motor Deficits, Normal Affect, Normal Mood, No Sensory Deficits Cerebellar Function: Normal Reflexes: Normal Skin: Dry, Normal Color, Warm Lymphatic: No Adenopathy Was a procedure done? Was a procedure done?: No Differential Dx Considerations may include: substance abuse, htn, anxiety X-Ray, Labs, Meds, VS Vital Signs Date Time Temp Pulse Resp B/P (MAP) Pulse Ox O2 Delivery O2 Flow Rate FiO2 03/08/25 09:53 97.6 97 16 133/87 (102) 98 97.6 Time of 1ST Reevaluation: 10:22 Reevaluation 1ST: Unchanged Patient Education/Counseling: Diagnosis, Treatment, Prognosis, Need For Follow Up Family Education/Counseling: No Family Present Departure 1 Departure Time of Disposition: 10:05 Impression: Primary Impression: Diabetes Qualified Codes: E11.9 - Type 2 diabetes mellitus without complications Additional Impressions: Hypertension Qualified Codes: I10 - Essential (primary) hypertension Substance abuse Medication refill Disposition: HOME / SELF CARE / HOMELESS Condition: Good e-Prescriptions Acetaminophen (Tylenol Extra Strength) 500 Mg Tab 500 MG PO Q8HP PRN, #30 TAB Prov: ANTWON SAMUELS MD 03/08/25 Metformin Hydrochloride (Metformin Hcl) 500 Mg Tab 1 TAB PO BID, #60 TAB 3 Refills Prov: ANTWON SAMUELS MD 03/08/25 Atorvastatin Calcium (Lipitor) 10 Mg Tab 1 TAB PO QPM, #90 TAB 1 Refill Prov: ANTWON SAMUELS MD 03/08/25 Metformin Hydrochloride (Metformin Hcl) 500 Mg Tab 1 TAB PO BID, #60 TAB 3 Refills Prov: ANTWON SAMUELS MD 03/08/25 Discharged With: Self Critical Care Note Critical Care Time?: No Stability Stability form required: No Heart Score Heart Score: Heart Score Response (Comments) Value History N/A 0 EKG N/A 0 Age N/A 0 Risk Factors N/A 0 Troponin N/A 0 Total 0 I personally scribed for ANTWON SAMUELS MD ([email or web address]) on 03/08/25 at 09:55. Electronically submitted by Aidan Garrett ([email or web address]). ANTWON SAMUELS MD Mar 08, 2025 09:55
[2025-03-08] MEDS ORDERED: METF-370 PO (10:10)
[2025-03-08] MEDS ORDERED: ACET-1304 PO (10:10)
[2025-03-08] MEDS ORDERED: ATOR10TA PO (10:10)
[2025-03-08 10:16] VITALS: BP 151/90; PULSE 107; RESP 20; TEMP 98.2; O2SAT 96
== END 2025-03-08 10:24 | disposition home or self-care (01) ==
LOC: ER 09:30
DX: I11.0 Hypertensive heart disease with heart failure (principal); E11.9 Type 2 diabetes mellitus without complications; F14.10 Cocaine abuse, uncomplicated; F12.90 Cannabis use, unspecified, uncomplicated; F19.90 Other psychoactive substance use, unspecified, uncomplicated; F17.210 Nicotine dependence, cigarettes, uncomplicated; F41.9 Anxiety disorder, unspecified; I50.9 Heart failure, unspecified; F32.A Depression, unspecified; E78.5 Hyperlipidemia, unspecified; F20.9 Schizophrenia, unspecified; Z59.00 Homelessness unspecified; Z76.0 Encounter for issue of repeat prescription; Z79.84 Long term (current) use of oral hypoglycemic drugs; Z79.890 Hormone replacement therapy; Z79.899 Other long term (current) drug therapy; Z90.49 Acquired absence of other specified parts of digestive tract
CPT/HCPCS: 82947; 82962

== ENCOUNTER 2025-03-20 15:39 | Emergency (ER) | payer OTHER, MEDICAID ==
[~2025-03-20] VITALS: Ht 157.5 cm; Wt 105.4 kg
--- NOTE | 2025-03-20 16:21 | ED.PDOC ---
Musculoskeletal HPI Comments This is a 39 year old female presenting to the ED with chief complaint of sores/blisters. Patient reports that she has been experiencing reoccurring sores and blisters to her bilateral legs for the past 3 weeks. Patient relays that some of them have popped already, but they come back. Patient states she has associated fevers and chills. Patient denies any numbness, weakness, tingling, chest pain, SOB, itchiness, drainage, or bleeding. Time Seen by MD: 16:21 Primary Care Provider: NONE Reviewed Notes: Nurses Notes, Medications, Allergies Allergies: Coded Allergies: NO KNOWN ALLERGIES (Unverified , 09/02/14) Home Meds Active Scripts Sulfamethoxazole W/Trimethopri (Bactrim Ds Tablet) 1 Tab Tb, 1 TAB PO BID for 10 Days, #20 TAB Prov:EDMAR OVERTON MD 03/20/25 Acetaminophen (Tylenol Extra Strength) 500 Mg Tab, 500 MG PO Q8HP PRN, #30 TAB Prov:ANTWON SAMUELS MD 03/08/25 Metformin Hydrochloride (Metformin Hcl) 500 Mg Tab, 1 TAB PO BID, #60 TAB 3 Refills Prov:ANTWON SAMUELS MD 03/08/25 Atorvastatin Calcium (Lipitor) 10 Mg Tab, 1 TAB PO QPM, #90 TAB 1 Refill Prov:ANTWON SAMUELS MD 03/08/25 Metformin Hydrochloride (Metformin Hcl) 500 Mg Tab, 1 TAB PO BID, #60 TAB 3 Refills Prov:ANTWON SAMUELS MD 03/08/25 Atorvastatin Calcium (Lipitor) 10 Mg Tab, 10 MG PO HS for 30 Days, #30 TAB Prov:KIMBERLEY MARIE MD 02/21/25 Lisinopril (Lisinopril) 10 Mg Tab, 1 TAB PO DAILY for 30 Days, #30 TAB Prov:KIMBERLEY MARIE MD 02/21/25 Levothyroxine Sodium (Levothyroxine Sodium) 112 Mcg Tab, 1 TAB PO DAILY for 30 Days, #30 TAB Prov:KIMBERLEY MARIE MD 02/21/25 Sertraline Hcl (Sertraline Hcl) 50 Mg Tab, 1 TAB PO DAILY for 30 Days, #30 TAB Prov:KIMBERLEY MARIE MD 02/21/25 Trazodone Hcl (Trazodone Hcl) 50 Mg Tab, 1 TAB PO HS for 30 Days, #30 TAB Prov:KIMBERLEY MARIE MD 02/21/25 Hydroxyzine HCl (Hydroxyzine Hydrochloride) 50 Mg Tab, 1 TAB PO BIDPRN PRN for 30 Days, #60 TAB Prov:KIMBERLEY MARIE MD 02/21/25 Metformin Hydrochloride (Metformin Hcl) 500 Mg Tab, 1 TAB PO BID for 30 Days, #60 TAB Prov:KIMBERLEY MARIE MD 02/21/25 Amoxicillin & Pot Clavulanate (AUGMENTIN TABLET) 875 Mg Tb, 875 MG PO BID for 7 Days, #14 TAB Prov:RENETTA CASTAÑEDA MD 02/07/25 Reported Medications Albuterol Sulfate (VENTOLIN MDI) 90 Mcg Ih, 90 MCG IN, INH 02/06/25 Sertraline HCl (Sertraline HCl) 50 Mg Tab, 50 MG PO, TAB 02/06/25 Zxioteg-Tguryhmecjdus-Ndzreccl (Headache Relief/Extra Str 250-250-65 mg) 1 Tab Tab, 1 TAB PO, TAB 02/06/25 Diphenhydramine Hcl (Benadryl Allergy) 25 Mg Cap, 25 CAP PO QPM, #30 CAP 1 Refill 02/06/25 Acetaminophen (Tylenol Extra Strength) 500 Mg Tab, 500 MG PO, TAB 02/06/25 Varenicline Tartrate (Varenicline Tartrate Cont) 1 Mg Tab, 1 MG PO BID 02/05/25 Information Source: Patient Mode of Arrival: Ambulatory Location: Bilateral Extremity Location: Leg Timing: Weeks Prehospital treatment: None Severity: Moderate Able to Move Extremity: Yes Mechanism: Spontaneous Circumstances: Spontaneous Onset of Symptoms: Spontaneous Symptoms: Erythema DVT Risk Factors: NONE Last Tetanus: Unknown Past Medical History PAST MEDICAL HISTORY: Anxiety, CHF, Depression, DM, Gallstones, High Lipids, Hypotension, Schizophrenia, Thyroid Surgical History: Appendectomy DIRECT CARE PROFESSIONAL History: No Pertinent DIRECT CARE PROFESSIONAL History Family History Family History: Reviewed,noncontributory to illness Social History Smoker: Cigarettes, Less Than 1 Pack/Day Alcohol: Denies ETOH Use Drugs: Cocaine, Marijuana, Methamphetamine Lives In: Homeless Constitutional: denies: chills, diaphoresis, fatigue, fever, malaise, sweats, weakness, others EENTM: denies: blurred vision, double vision, ear bleeding, ear discharge, ear drainage, ear pain, ear ringing, eye pain, eye redness, hearing loss, mouth pain, mouth swelling, nasal discharge, nose bleeding, nose congestion, nose pain, photophobia, tearing, throat pain, throat swelling, voice changes, others Respiratory: denies: cough, hemoptysis, orthopnea, SOB at rest, shortness of breath, SOB with excertion, stridor, wheezing, others Cardiovascular: denies: chest pain, dizzy spells, diaphoresis, Dyspnea on exertion, edema, irregular heart beat, left arm pain, lightheadedness, palpitations, PND, syncope, others Gastrointestinal: denies: abdomen distended, abdominal pain, blood streaked bowels, constipated, diarrhea, dysphagia, difficulty swallowing, hematemesis, melena, nausea, poor appetite, poor fluid intake, rectal bleeding, rectal pain, vomiting, others Genitourinary: denies: abnormal vagina bleeding, burning, dyspareunia, dysuria, flank pain, frequency, hematuria, incontinence, pain, , vagina discharge, urgency, others Neurological: denies: dizziness, fainting, headache, left sided numbness, left sided weakness, numbness, paresthesia, pre-existing deficit, right sided numbness, right sided weakness, seizure, speech problems, tingling, tremors, weakness, others Musculoskeletal: denies: back pain, gout, joint pain, joint swelling, muscle pain, muscle stiffness, neck pain, others Integumetry: reports: lesions (To bilateral legs); denies: bruises, change in c olor, change in hair/nails, dryness, laceration, lumps, rash, wounds, others Allergic/Immunocompromised: denies: Difficulty Healing, Frequent Infections, Hives, Itching, others Hematologic/Lymphatic: denies: anemia, blood clots, easy bleeding, easy bruising, swollen glands, others Endocrine: denies: excessive hunger, excessive sweating, excessive thirst, excessive urination, flushing, intolerance to cold, intolerance to heat, unexplained weight gain, unexplained weight loss, others Psychiatric: denies: anxiety, bipolar disorder, depression, hopeless, panic disorder, schizophrenia, sleepless, suicidal, others All Other Systems: Reviewed and Negative Physical Exam General Appearance: No Apparent Distress HEENT: Normal ENT Inspection, Pharynx Normal, TMs Normal Neck: Full Range of Motion, Non-Tender, Normal, Normal Inspection Respiratory: Chest Non-Tender, Lungs Clear, No Accessory Muscle Use, No Respiratory Distress, Normal Breath Sounds Cardiovascular: No Edema, No JVD, No Murmur, No Gallop, Normal Peripheral Pulses, Regular Rate/Rhythm Breast Exam: Deferred Gastrointestinal: No Organomegaly, Non Tender, No Pulsatile Mass, Normal Bowel Sounds, Soft Genitalia: Deferred Pelvic: Deferred Rectal: Deferred Extremities: No calf tenderness, Normal capillary refill, No pedal edema Musculoskeletal : Apperance: Normal Neurologic: Alert, sand sifter II-XII nml as Tested, No Motor Deficits, Normal Affect, Normal Mood, No Sensory Deficits Cerebellar Function: Normal Reflexes: Normal Skin: Dry, Normal Color, Rash (Rash to the lower extremities), Warm Lymphatic: No Adenopathy Was a procedure done? Was a procedure done?: No Differential Diagnosis EXT Differential Diagnosis: Cellulitis, Contusion, Strain X-Ray, Labs, Meds, VS Vital Signs Date Time Temp Pulse Resp B/P (MAP) Pulse Ox O2 Delivery O2 Flow Rate FiO2 03/20/25 15:42 97.7 82 20 154/73 (100) 96 97.7 The patient was given a prescription for Bactrim The patient is being discharged The patient will return to the emergency department's the condition worsens Time of 1ST Reevaluation: 16:37 Reevaluation 1ST: Unchanged Patient Education/Counseling: Diagnosis, Treatment, Prognosis, Need For Follow Up Family Education/Counseling: No Family Present Departure 1 Departure Time of Disposition: 16:37 Impression: Primary Impression: Cellulitis, leg Qualified Codes: L03.119 - Cellulitis of unspecified part of limb Disposition: 01 HOME / SELF CARE / HOMELESS Condition: Fair e-Prescriptions Sulfamethoxazole W/Trimethopri (Bactrim Ds Tablet) 1 Tab Tb 1 TAB PO BID for 10 Days, #20 TAB Prov: EDMAR OVERTON MD 03/20/25 Discharged With: Self Critical Care Note Critical Care Time?: No Stability Stability form required: No Heart Score Heart Score: Heart Score Response (Comments) Value History N/A 0 EKG N/A 0 Age N/A 0 Risk Factors N/A 0 Troponin N/A 0 Total 0 I personally scribed for EDMAR OVERTON MD ([email or web address]) on 6/25/25 at 16:21. El ectronically submitted by Omar Vargas ([email or web address]). EDMAR OVERTON MD Mar 20, 2025 16:21
[2025-03-20] MEDS ORDERED: BACDST PO (16:34)
[2025-03-20 18:30] VITALS: BP 131/87; PULSE 75; RESP 20; TEMP 98; O2SAT 99
== END 2025-03-20 18:39 | disposition home or self-care (01) ==
LOC: ER 15:39
DX: L03.116 Cellulitis of left lower limb (principal); L03.115 Cellulitis of right lower limb; F17.210 Nicotine dependence, cigarettes, uncomplicated; F12.90 Cannabis use, unspecified, uncomplicated; F19.90 Other psychoactive substance use, unspecified, uncomplicated; F41.9 Anxiety disorder, unspecified; I11.0 Hypertensive heart disease with heart failure; I50.9 Heart failure, unspecified; E78.5 Hyperlipidemia, unspecified; F20.9 Schizophrenia, unspecified; F32.A Depression, unspecified; E11.9 Type 2 diabetes mellitus without complications; Z59.00 Homelessness unspecified; Z79.84 Long term (current) use of oral hypoglycemic drugs; Z79.890 Hormone replacement therapy; Z79.899 Other long term (current) drug therapy; Z90.49 Acquired absence of other specified parts of digestive tract